=== PATIENT | male | born 1935 | race Caucasian/White ===

== ENCOUNTER → 2018-04-10 | Outpatient (CLI) | payer MEDICARE, BC ==
[2018-04-10 09:21] LABS: Blood Urea Nitrogen 19 mg/dL (9-20)
== END | disposition home or self-care (01) ==
LOC: LABWHC1 07:33
PROVIDERS: ATTEND Internal Medicine
DX: R91.8 Other nonspecific abnormal finding of lung field (principal)
CPT/HCPCS: 36415; 82565; 84520

== ENCOUNTER → 2018-04-15 | Outpatient (CLI) | payer MEDICARE, BC ==
--- NOTE | 2018-04-15 08:18 | CT ---
EXAMINATION TYPE: CT chest w con DATE OF EXAM: 04/15/2018 COMPARISON: CT thorax of 2015 HISTORY: f/u to previous abnormal lung mass CT DLP: 499 mGycm. Automated Exposure Control for Dose Reduction was Utilized. TECHNIQUE: CT scan of the thorax is performed following with IV Contrast, patient injected with 100 mL of Isovue 300. FINDINGS: LUNGS: Within the anterior right upper lobe there is a 3.4 x 3.5 x 4.7 cm peripherally spiculated het erogenous pulmonary mass on a background of moderate centrilobular pulmonary emphysema. There are for satellite nodules seen adjacent to this measuring up to 5 mm on series 4 image 20, 21, 22, and 23. T here are also at least 19 additional right-sided pulmonary nodules measuring up to 1.1 cm and segment al right middle lobe atelectasis with near complete right middle lobe collapse. On the left there are 3 pulmonary nodules measuring up to 7 mm compatible with contralateral metastasis. MEDIASTINUM: There are no greater than 1 cm hilar or mediastinal lymph nodes. Prominent right hilar n ode measures 8 mm in short axis on image 30. Pretracheal lymph node measures up to 7 mm on image 23. No supraclavicular adenopathy is seen. No axillary adenopathy is noted. No pericardial effusion is seen. Severe coronary artery calcifications are seen within the left main and left anterior descendi ng coronary artery. There is a partial intrathoracic stomach folding upon itself. OTHER: Gallstones are noted within the gallbladder. Left pararenal cyst diving into the renal pelvis is seen. Descending duodenal diverticulum is present. Punctate calcifications in the pancreatic paren chyma are indicative of underlying chronic pancreatitis. Probable smaller cortical left renal cyst is seen. Atherosclerosis is noted of the abdominal aorta. In the visualized liver there are 2 too small to accurately characterize hepatic lesions measuring up to 6 mm. Diffuse patchy bone marrow appearan ce is seen that more likely represents diffuse osseous demineralization rather than diffuse osseous m etastasis. 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 At least 19 right-sided pulmonary no dules and 3 left-sided pulmonary nodules are highly suspicious for contralateral metastasis although there is no abnormal mediastinal adenopathy. Percutaneous biopsy or PET/CT could be considered.
== END | disposition home or self-care (01) ==
LOC: RADCTMAIN 06:42
PROVIDERS: ATTEND Internal Medicine
DX: D49.1 Neoplasm of unspecified behavior of respiratory system (principal); Z88.8 Allergy status to other drugs, medicaments and biological substances
CPT/HCPCS: 71260; Q9967

== ENCOUNTER → 2018-04-20 | Outpatient (CLI) | payer MEDICARE, BC ==
--- NOTE | 2018-04-21 08:41 | PE ---
EXAMINATION TYPE: PET CT fusion skull to thigh DATE OF EXAM: 04/20/2018 COMPARISON: Chest CT April 15, 2018 and older CTs. HISTORY: Lung mass TECHNIQUE: Following the intravenous administration of 11.492 mCi of F-18 FDG, whole body images are performed from the skull base to the midthigh. Images are reviewed on the computer in the coronal, axial, and sagittal planes. Reconstructed rotating images are created on independent workstation and reviewed on the computer. A localization noncontrast CT is performed in conjunction with the PET s can. SCAN: Initial Scan FINDINGS: Exam noted suboptimal as there is significant misregistration artifact felt present. SKULL BASE AND NECK: Diminished hypermetabolic uptake right brain is felt artifact related to misreg istration of PET images on CT images.. No areas of suspicious hypermetabolic uptake are clearly seen CHEST, MEDIASTINUM, AND HILAR REGION: There is background moderate to severe underlying emphysematous change redemonstrated. Corresponding to area of x-ray concern and recent CT there is 4.0 x 3.1 cm right upper lung mass axia l image 62, there is probable abnormal hypermetabolic uptake on PET images near axial image 74 with t here is rounded area similar in size of abnormal hypermetabolic uptake, max SUV at this level is 5.7. Corresponding to recent CT there are several bilateral nodules, a few of the larger reference nodules measure 8 x 7 mm lingula axial image 84 and 10 x 9 mm right middle lobe axial image 85 with spiculat ed margins. No definitive hypermetabolic uptake is present. Exam however is noted significantly subop timal due to artifact or misregistration of PET images do not align with the CT images. No definitive suspicious thoracic enlarged or hypermetabolic lymph nodes are seen. ABDOMEN AND PELVIS: Areas of abnormal hypermetabolic foci left anterior abdominal wall axial image 14 0 and left iliopsoas muscle axial image 149 do not have corresponding areas of CT abnormality, etiolo gy uncertain. OSSEOUS STRUCTURES: No suspicious hypermetabolic uptake clearly seen. OTHER CT: Levoconvex scoliosis at level of the lumbar spine is present. There is moderate to severe coronary artery calcification which is noted marker for coronary artery d isease. There is large hiatal hernia or intrathoracic stomach noted. Numerous dependent small gallstones in gallbladder are present. There is 3.2 cm simple appearing cyst centrally in kidney axial image 134. There is moderate to severe calcified plaque of aorta extending into branch vessels. Ectasia is seen. There is markedly enlarged prostate gland bulging on bladder base consistent with underlying BPH. There is degenerative joint space loss in both hips. There is multilevel spurring in the spine. There is facet arthropathy lower lumbar levels. IMPRESSION: Markedly suboptimal study due to misregistration of PET images on the CT images, suspicio us right upper lobe mass worrisome for neoplasm is confirmed. No definitive hypermetabolic uptake in the suspicious but subcentimeter bilateral pulmonary nodules. No convincing evidence of metastatic di sease however focal areas of hypermetabolic uptake in the abdomen on PET are noted of uncertain etiol ogy because of artifact.
== END ==
LOC: RADPETMAIN 12:06
PROVIDERS: ATTEND Internal Medicine
DX: R91.8 Other nonspecific abnormal finding of lung field (principal)
CPT/HCPCS: 78815; A9552

== ENCOUNTER → 2018-04-20 | Outpatient (CLI) | payer MEDICARE, BC | END | disposition home or self-care (01) | LOC: LABWHC1 11:56 | PROVIDERS: ATTEND Urology | DX: R97.20 Elevated prostate specific antigen [PSA] (principal) | CPT/HCPCS: 36415; 84153 ==

== ENCOUNTER → 2018-07-30 | Outpatient (CLI) | payer MEDICARE, BC ==
[2018-07-30 13:06] LABS: Blood Urea Nitrogen 16 mg/dL (9-20)
--- NOTE | 2018-07-30 14:59 | CT ---
EXAMINATION TYPE: CT chest w con DATE OF EXAM: 07/30/2018 COMPARISON: 04/15/2018 HISTORY: RUL Mass CT DLP: 379.9 mGycm Automated exposure control for dose reduction was used. CONTRAST: CT scan of the chest is performed with IV Contrast, patient injected with 100 mL of Isovue 300. FINDINGS: LUNGS: Again noted within the right upper lobe is a spiculated mass which currently measures 3.2 x 2. 6 cm versus 3.5 x 3.4 cm previously. There are several small adjacent satellite nodules identified wh ich remain stable with regards to total number and size. The largest nodule measures 1.1 cm and is lo cated within the right upper lobe. Basilar pulmonary nodules persist at both lung bases 3 total pulmo nary nodules are noted within the left lung the largest is seen within the left upper lobe and measur es 8.9 mm. MEDIASTINUM: There are no greater than 1 cm hilar or mediastinal lymph nodes. No pericardial effusi on is seen. Moderately large fixed hiatal hernia paraesophageal. Thoracic aorta is of normal caliber . The heart is not enlarged. UPPER ABDOMEN: Renal cystic changes identified. Cholelithiasis noted. OTHER: No additional significant abnormality is seen. IMPRESSION: 1. Right upper lobe mass is slightly smaller in size although does persist. Scattered pulmonary nodul es are essentially stable with regards to overall size, number and morphology.
== END | disposition home or self-care (01) ==
LOC: RADCTMAIN 12:20
PROVIDERS: ATTEND Internal Medicine
DX: R91.8 Other nonspecific abnormal finding of lung field (principal); Z88.8 Allergy status to other drugs, medicaments and biological substances
CPT/HCPCS: 82565; 84520; 71260; 36415; Q9967

== ENCOUNTER → 2018-10-29 | Outpatient (CLI) | payer MEDICARE, BC | END | disposition home or self-care (01) | LOC: LABWHC1 08:03 | PROVIDERS: ATTEND Urology | DX: R97.20 Elevated prostate specific antigen [PSA] (principal) | CPT/HCPCS: 36415; 84153 ==

== ENCOUNTER 2018-12-21 13:21 | Emergency (ER) | payer MEDICARE, BC ==
[2018-12-21 13:30] VITALS: TEMP 98
[2018-12-21 14:30] LABS: HCT 36.7 % (39.0-53.0); HGB 12.3 gm/dL (13.0-17.5); MCH 32.6 pg (25.0-35.0); MCHC 33.6 g/dL (31.0-37.0); MCV 97.1 fL (80.0-100.0); Mean Platelet Volume 7.2; Platelet Count 323 k/uL (150-450); RBC 3.78 m/uL (4.30-5.90); RDW 12.9 % (11.5-15.5); WBC 5.8 k/uL (3.8-10.6)
[2018-12-21 14:40] LABS: ALT 16 U/L (21-72); AST 29 U/L (17-59); African American GFR (CKD) >90 (>60 ml/min/1.73 sqM); Alkaline Phosphatase 69 U/L (38-126); Anion Gap 9 mmol/L; Blood Urea Nitrogen 16 mg/dL (9-20); Calcium 9.3 mg/dL (8.4-10.2); Carbon Dioxide 24 mmol/L (22-30); Chloride 97 mmol/L (98-107); Glucose 98 mg/dL (74-99); Potassium 4.7 mmol/L (3.5-5.1); Sodium 130 mmol/L (137-145); Total Bilirubin 0.5 mg/dL (0.2-1.3); Total Protein 7.2 g/dL (6.3-8.2)
[2018-12-21 14:41] LABS: INR 0.9 (<1.2); Partial Thromboplastin Time 24.2 sec (22.0-30.0)
--- NOTE | 2018-12-21 14:41 | CT ---
EXAMINATION TYPE: CT brain cspine wo con DATE OF EXAM: 12/21/2018 COMPARISON: NONE HISTORY: Altered mental status. Head pain and neck pain. CT DLP: 1472.8 mGycm. Automated Exposure Control for Dose Reduction was Utilized. TECHNIQUE: CT scan of the head and cervical spine are performed without contrast. FINDINGS: There are bilateral acute on subacute subdural hematomas measuring up to 1.6 cm in thicknes s on the left and 0.8 cm in thickness on the right. There is minimal left to right midline shift of 2 mm. There is effacement of the peripheral sulci bilaterally, left greater than right secondary to th e mass effect. No intraventricular hemorrhage is seen. Peripheral sulci prominence that does not surr ounding these fluid collections and ventricular prominence is compatible with age-related volume loss . Extensive atherosclerosis of the intracranial vasculature is seen. There is no calvarial fracture i dentified. Visualized paranasal sinuses and mastoid air cells are well aerated. Moderate to severe multilevel degenerative disc disease is seen of the cervical spine. There is parti al visualization of a right upper lobe mass with multiple satellite nodules that should be considered neoplasm until proven otherwise as well as multifocal pleural thickening and scarring with underlyin g extensive emphysematous change. Numerous sclerotic foci are also seen of the cervical spine that ma y represent metastasis. There is grade 1 anterolisthesis of C4 on C5 without facet malalignment or pr evertebral soft tissue swelling therefore likely on the basis of degenerative disc disease. No verteb ral body height loss is seen. Prevertebral soft tissues are within normal limits throughout. IMPRESSION: 1. 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 Images were discussed with the ordering ER provider at 1437 on 12/21/[address] Salgado. 2. Extensive multilevel degenerative disc disease of the cervical spine and grade 1 anterolisthesis o f C4 on C5, likely on a degenerative basis without evidence of acute fracture. 3. Partial visualization of the right upper lobe mass as seen on the prior PET/CT of 04/13/1718 and C T chest dated 08/09/2018 that again should be considered neoplasm until proven otherwise. Multiple scl erotic foci in the cervical spine may represent metastasis.
[2018-12-21] MEDS ORDERED: levETIRAcetam IV 1,000 MG in SALINE 1 100ML.BAG IVPB STA (14:50)
[2018-12-21] MEDS ORDERED: SODIUM CHLORIDE 0.9% 1,000 ML IV SCH (15:00)
--- NOTE | 2018-12-21 15:01 | ED ---
Extremity Problem HPI - General Source: patient Mode of arrival: ambulatory Limitations: no limitations <Florentin Biggs - Last Filed: 12/21/18 15:22> <Vinod Barrera - Last Filed: 12/22/18 08:37> - General Chief complaint: Extremity Problem,Nontraumatic Stated complaint: Numbness, Weakness Time Seen by Provider: 12/21/18 13:34 - History of Present Illness Initial comments: Patient is a 2-year-old male presents emergency Department with bilateral numbness and tingling on the upper extremities. Patient reports the symptoms started 2 days ago and have been intermittent. Patient reports the symptoms st arted in his left hand and alternate to the right hand. Patient also reports intermittent bilateral muscle weakness in the upper extremities. Patient also reports that he has been more forgetful than usual with a past 2 days. Patient denies blurry vision, nausea, vomiting or headaches. Patient is not on blood thinners. Patient does have a history of dementia. Patient reports he drove himself to the emergency department. Patient lives by himself in a house. Patient reports he is able to ambulate without difficulty. (Florentin Biggs) - Related Data Home Medications Medication Instructions Recorded Confirmed Fluticasone/Salmeterol [Advair 1 puff INHALATION BID 02/21/14 05/21/15 250-50 Diskus] Gluc HCl/Zhang/Mv/Min Aa/Hb 162 1 tab PO BID 02/21/14 05/21/15 [Glucosamine-Chondroitin Caplet] Ipratropium/Albuterol Sulfate 1 applicate INHALATION TID 02/21/14 05/21/15 [Duoneb 0.5 mg-3 mg/3 ml Soln] Multivitamin [Men's Multi-Vitamin] 1 tab PO DAILY 02/21/14 05/21/15 Naproxen 1,000 mg PO DIRECTED PRN 02/21/14 05/21/15 Saw Gardners Xtr/Zinc Picolin [Saw 900 mg PO DAILY 02/21/14 05/21/15 Gardners Ext 160 mg Cap] Tamsulosin [Flomax] 0.4 mg PO DAILY 05/21/15 05/21/15 amLODIPine BESYLATE [Amlodipine 5 mg PO DAILY 05/21/15 05/21/15 Besylate] Previous Rx's Medication Instructions Recorded ALPRAZolam [Xanax] 0.5 mg PO Q8HR PRN #10 tablet 02/21/14 Allergies Allergy/AdvReac Type Severity Reaction Status Date / Time doxazosin Allergy Rapid Verified 12/21/18 13:30 Heart Rate Review of Systems ROS Other: All systems not noted in ROS Statement are negative. <Florentin Biggs - Last Filed: 12/21/18 15:22> ROS Other: All systems not noted in ROS Statement are negative. <UgoamyVinod - Last Filed: 12/22/18 08:37> ROS Statement: Those systems with pertinent positive or pertinent negative responses have been documented in the HPI. Past Medical History Past Medical History: COPD, Hypertension, Memory Impairment, Prostate Disorder Additional Past Medical History / Comment(s): intubated due to respiratory distress 2004 History of Any Multi-Drug Resistant Organisms: None Reported Past Surgical History: Tonsillectomy Additional Past Surgical History / Comment(s): vasectomy Past Anesthesia/Blood Transfusion Reactions: No Reported Reaction Past Psychological History: Anxiety Smoking Status: Former smoker Past Alcohol Use History: None Reported Past Drug Use History: None Reported <Florentin Biggs - Last Filed: 12/21/18 15:22> General Exam Limitations: no limitations General appearance: alert, in no apparent distress Head exam: Present: atraumatic, normocephalic, normal inspection Eye exam: Present: normal appearance, PERRL, EOMI Pupils: Present: normal accommodation ENT exam: Present: normal exam, mucous membranes moist Neck exam: Present: normal inspection, full ROM Respiratory exam: Present: normal lung sounds bilaterally Cardiovascular Exam: Present: regular rate, normal rhythm, normal heart sounds Extremities exam: Present: normal inspection, full ROM, other (+2 radial and pulses, bilaterally. +2 dorsalis pedis and posterior tibialis, bilaterally. Equal strength bilaterally on upper and lower extremities.) Back exam: Present: normal inspection Neurological exam: Present: alert, oriented X3 Psychiatric exam: Present: normal affect, normal mood Skin exam: Present: warm, intact, normal color <Florentin Biggs - Last Filed: 12/21/18 15:22> - General Exam Comments Initial Comments: Patient neurovascularly intact. (Florentin Biggs) Course Vital Signs 12/21/18 12/21/18 12/21/18 13:27 14:25 15:47 Temperature 98.0 F Pulse Rate 83 77 68 Respiratory 18 18 16 Rate Blood Pressure 165/85 148/83 139/81 O2 Sat by Pulse 98 96 96 Oximetry 12/21/18 16:32 Temperature 98.0 F Pulse Rate 68 Respiratory 16 Rate Blood Pressure 139/81 O2 Sat by Pulse 96 Oximetry Medical Decision Making - Lab Data Result diagrams: 12/21/18 14:22 12/21/18 14:22 <Florentin Biggs - Last Filed: 12/21/18 15:22> - Lab Data Result diagrams: 12/21/18 14:22 12/21/18 14:22 <Vinod Barrera - Last Filed: 12/22/18 08:37> - Medical Decision Making Patient is an 83-year-old male presents emergency Department with bilateral numbness and tingling on the upper extremities. CT of the previous C-spine is suggestive of acute on chronic bilateral subdural hematomas, left greater than the right with a very minimal left to right midline shift of 2 mm. At this time patient will be placed on a saline drip and transferred to [facility] for further treatment. The admitting physician is . (Florentin Biggs) Patient evaluated, resting comfortably with stable vitals. He is moving all extremities symmetrically. His head CT is reviewed, he has acute on chronic bilateral subdurals, worse on the left with 2 mm shift. I discussed case with the field service technician poultry Dr. Serrato and ER physician Dr. Alvares at [facility]. (Vinod Barrera) - Lab Data Lab Results 12/21/18 12/21/18 12/21/18 Range/Units 14:22 14:22 14:22 WBC 5.8 (3.8-10.6) k/uL RBC 3.78 L (4.30-5.90) m/uL Hgb 12.3 L (13.0-17.5) gm/dL Hct 36.7 L (39.0-53.0) % MCV 97.1 (80.0-100.0) fL MCH 32.6 (25.0-35.0) pg MCHC 33.6 (31.0-37.0) g/dL RDW 12.9 (11.5-15.5) % Plt Count 323 (150-450) k/uL PT 10.0 (9.0-12.0) sec INR 0.9 (<1.2) APTT 24.2 (22.0-30.0) sec Sodium 130 L (137-145) mmol/L Potassium 4.7 (3.5-5.1) mmol/L Chloride 97 L (98-107) mmol/L Carbon Dioxide 24 (22-30) mmol/L Anion Gap 9 mmol/L BUN 16 (9-20) mg/dL Creatinine 0.77 (0.66-1.25) mg/dL Est GFR (CKD-EPI)AfAm >90 (>60 ml/min/1.73 sqM) Est GFR (CKD-EPI)NonAf 84 (>60 ml/min/1.73 sqM) Glucose 98 (74-99) mg/dL Calcium 9.3 (8.4-10.2) mg/dL Magnesium 2.0 (1.6-2.3) mg/dL Total Bilirubin 0.5 (0.2-1.3) mg/dL AST 29 (17-59) U/L ALT 16 L (21-72) U/L Alkaline Phosphatase 69 (38-126) U/L Total Protein 7.2 (6.3-8.2) g/dL Albumin 4.0 (3.5-5.0) g/dL Disposition Is patient prescribed a controlled substance at d/c from ED?: No Time of Disposition: 15:13 - Out of Hospital Transfer - Req. Specs Out of Hospital Transfer - Requested Specifics: Other Emergency Center ([facility]) <Florentin Biggs - Last Filed: 12/21/18 15:22> Is patient prescribed a controlled substance at d/c from ED?: No - Out of Hospital Transfer - Req. Specs Out of Hospital Transfer - Requested Specifics: Other Emergency Center <Vinod Barrera - Last Filed: 12/22/18 08:37> Clinical Impression: Subdural hematoma Disposition: OTHER INSTITUTION NOT DEFINED Condition: Stable Additional Instructions: Patient will be transferred to [facility]. Referrals: None,Stated [Primary Care Provider] - 1-2 days
[2018-12-21 15:48] VITALS: BP 139/81; PULSE 68; RESP 16
== END 2018-12-21 16:20 | disposition other institution (70) ==
LOC: EC 13:21
DX: I62.00 Nontraumatic subdural hemorrhage, unspecified (principal); J44.9 Chronic obstructive pulmonary disease, unspecified; I10 Essential (primary) hypertension; Z79.51 Long term (current) use of inhaled steroids; Z79.899 Other long term (current) drug therapy; Z88.8 Allergy status to other drugs, medicaments and biological substances; Z87.891 Personal history of nicotine dependence
CPT/HCPCS: 36415; 80053; 83735; 85027; 85610; 85730; 72125; 70450; 99284; 96374; 96361; J1953

== ENCOUNTER → 2019-01-29 | Outpatient (CLI) | payer MEDICARE, BC ==
--- NOTE | 2019-01-29 16:17 | CT ---
EXAMINATION TYPE: CT chest w con DATE OF EXAM: 01/29/2019 COMPARISON: 07/30/2018 HISTORY: Non specific abnormal finding of the lung CT DLP: 434 mGycm, Automated exposure control for dose reduction was used. CONTRAST: Performed injected with 100 ml mL of Isovue 300. TECHNIQUE: Axial images were obtained at 5 mm thick sections. Reconstructed images are reviewed on [employer] computer in the coronal plane. FINDINGS: Portion of the thyroid visualized is normal. There is irregular mass within the superior anterior right upper lobe measuring 2.5 x 3.5 cm. This pr eviously measured 2.6 x 3.2 cm. There is some increasing extension anteriorly towards the periphery. Additionally, a spiculated mass right upper lobe, series 6 image 21 has increased in size from 0.82 1 .1 cm on the current exam. Findings are suspicious for metastatic disease. There are multiple additional enlarging nodules inferior within the right middle lobe. A mass within the lingula has enlarged from 0.9 to 1.4 cm. Series 6 image 35. Additional peripheral nodule in the r ight middle lobe previously measured 1.2 cm currently measures 1.4 cm. Image 32 series 6. No enlarged mediastinal or hilar adenopathy is evident. The ascending aorta diameter at the level o f the main pulmonary artery is 3.3 cm. The main pulmonary artery diameter at the bifurcation is 2.[address] sections are obtained through the upper abdomen. Abdomen is essentially unremarkable. Larg e hiatal hernia is present. There is a patchy appearance within the vertebral bodies of the thoracic spine. Osseous metastasis should be considered IMPRESSIONS: 1. Multiple increasing size irregular nodules suspicious for metastasis present within the bilateral lungs.
== END | disposition home or self-care (01) ==
LOC: RADCTMAIN 07:04
PROVIDERS: ATTEND Internal Medicine
DX: R91.8 Other nonspecific abnormal finding of lung field (principal)
CPT/HCPCS: 82565; 84520; 71260; 36415; Q9967

== ENCOUNTER → 2019-05-16 | Outpatient (CLI) | payer MEDICARE, BC | END | disposition home or self-care (01) | LOC: LABWHC1 07:51 | PROVIDERS: ATTEND Urology | DX: R97.20 Elevated prostate specific antigen [PSA] (principal) | CPT/HCPCS: 36415; 84153 ==

== ENCOUNTER 2019-09-05 04:22 | Inpatient (IN) | payer MEDICARE, BC ==
[2019-09-05] MEDS ORDERED: IPRATROPIUM-ALBUTEROL 3 ML NEB INHALATION STA (06:04)
[2019-09-05] MEDS ORDERED: methylPREDNISolone SOD SUCCI 125 MG/2 ML VIAL IV STA (06:04)
[2019-09-05 06:35] LABS: Basophils % (A) 0 %; Eosinophils # (A) 0.2 k/uL (0-0.7); Eosinophils % (A) 2 %; HGB 13.5 gm/dL (13.0-17.5); Lymphocytes # (A) 0.2 k/uL (1.0-4.8); Lymphocytes % (A) 2 %; MCH 32.8 pg (25.0-35.0); MCV 99.2 fL (80.0-100.0); Mean Platelet Volume 7.8; Monocytes # (A) 0.5 k/uL (0-1.0); Monocytes % (A) 4 %; Neutrophils # (A) 12.2 k/uL (1.3-7.7); Neutrophils % (A) 93 %; Platelet Count 278 k/uL (150-450); RBC 4.13 m/uL (4.30-5.90); RDW 12.5 % (11.5-15.5); WBC 13.2 k/uL (3.8-10.6)
[2019-09-05 06:44] LABS: INR 0.9 (<1.2); Partial Thromboplastin Time 22.2 sec (22.0-30.0); Prothrombin Time 9.9 sec (9.0-12.0)
[2019-09-05 06:45] LABS: ALT 14 U/L (4-49); AST 28 U/L (17-59); African American GFR (CKD) >90 (>60 ml/min/1.73 sqM); Albumin 3.7 g/dL (3.5-5.0); Alkaline Phosphatase 66 U/L (38-126); Anion Gap 7 mmol/L; Blood Urea Nitrogen 20 mg/dL (9-20); Carbon Dioxide 26 mmol/L (22-30); Chloride 101 mmol/L (98-107); Glucose 146 mg/dL (74-99); Non-African American GFR(CKD) 85 (>60 ml/min/1.73 sqM); Potassium 4.4 mmol/L (3.5-5.1); Sodium 134 mmol/L (137-145); Total Bilirubin 0.4 mg/dL (0.2-1.3); Total Protein 7.1 g/dL (6.3-8.2)
--- NOTE | 2019-09-05 07:06 | XR ---
EXAM: XR Chest, 2 Views CLINICAL HISTORY: difficulty breathing TECHNIQUE: Frontal and lateral views of the chest. COMPARISON: November 28, 2018. FINDINGS: Lungs: Extensive bilateral pulmonary infiltrates, worse on the right. Pleural space: Unremarkable. No pneumothorax. No pleural fluid. Heart: Unremarkable. No cardiomegaly. Mediastinum: Retrocardiac hiatus hernia. Bones/joints: Unremarkable. No acute abnormalities. IMPRESSION: Bilateral pneumonia.
[2019-09-05] MEDS ORDERED: AZITHROMYCIN 500 MG in SODIUM CHLORIDE 0.9% 250 ML IVPB STA (07:32)
[2019-09-05] MEDS ORDERED: IPRATROPIUM-ALBUTEROL 3 ML NEB INHALATION PRN (07:32)
[2019-09-05] MEDS ORDERED: PNEUMONIA PROTOCOL UTILIZED 1 EACH MISC PO PRN (07:32)
--- NOTE | 2019-09-05 07:38 | ED ---
SOB HPI - General Chief Complaint: Shortness of Breath Stated Complaint: SOB Time Seen by Provider: 09/05/19 07:32 Source: patient, EMS Mode of arrival: EMS Limitations: no limitations - History of Present Illness Initial Comments: Mitch is an 84-year-old male with history of COPD previously oxygen-dependent but states that his insurance no longer covers it so he does not have oxygen at home. Patient reports he began feeling short of breath over the past day and a half however it acutely worsened throughout the day today and during the night he couldn't sleep. Patient states that he's been hospitalized with respiratory failure requiring intubation 2 times in the past and didn't want to wait until he was at 6. Patient states he got up and got dressed himself to the hospital but was too short of breath didn't think it was safe to drive so he called 911. Patient denies any fevers but reports chills, minimally productive cough, no nausea vomiting or change in bowel or bladder habits. Patient denies any chest pain or palpitations. Patient reports he is feeling somewhat better after getting a breathing treatment supplemental oxygen from EMS. - Related Data Home Medications Medication Instructions Recorded Confirmed Fluticasone/Salmeterol [Advair 1 puff INHALATION BID 02/21/14 05/21/15 250-50 Diskus] Gluc HCl/Zhang/Mv/Min Aa/Hb 162 1 tab PO BID 02/21/14 05/21/15 [Glucosamine-Chondroitin Caplet] Ipratropium/Albuterol Sulfate 1 applicate INHALATION TID 02/21/14 05/21/15 [Duoneb 0.5 mg-3 mg/3 ml Soln] Multivitamin [Men's Multi-Vitamin] 1 tab PO DAILY 02/21/14 05/21/15 Naproxen 1,000 mg PO DIRECTED PRN 02/21/14 05/21/15 Saw Cadwell Fruit/Zinc Picoli 900 mg PO DAILY 02/21/14 05/21/15 [Saw Cadwell 450 mg Capsule] Tamsulosin [Flomax] 0.4 mg PO DAILY 05/21/15 05/21/15 amLODIPine BESYLATE [Amlodipine 5 mg PO DAILY 05/21/15 05/21/15 Besylate] Previous Rx's Medication Instructions Recorded ALPRAZolam [Xanax] 0.5 mg PO Q8HR PRN #10 tablet 02/21/14 Allergies Allergy/AdvReac Type Severity Reaction Status Date / Time doxazosin Allergy Rapid Verified 12/21/18 13:30 Heart Rate Review of Systems ROS Statement: Those systems with pertinent positive or pertinent negative responses have been documented in the HPI. ROS Other: All systems not noted in ROS Statement are negative. Past Medical History Past Medical History: COPD, Hypertension, Memory Impairment, Prostate Disorder Additional Past Medical History / Comment(s): intubated due to respiratory distress 2004 History of Any Multi-Drug Resistant Organisms: None Reported Past Surgical History: Tonsillectomy Additional Past Surgical History / Comment(s): vasectomy Past Anesthesia/Blood Transfusion Reactions: No Reported Reaction Past Psychological History: Anxiety Smoking Status: Former smoker Past Alcohol Use History: None Reported Past Drug Use History: None Reported General Exam - General Exam Comments Initial Comments: Physical Exam GENERAL: Chronically ill-appearing elderly gentleman in no acute distress upon arrival HENT: Normocephalic, Atraumatic. EYES: PERRL, EOMI PULMONARY: Crackles at bases with expiratory wheezing noted CARDIOVASCULAR: RRR ABDOMEN: Soft and nontender with normal bowel sounds. SKIN: Skin is clear with no lesions or rashes and otherwise unremarkable. : Deferred NEUROLOGIC: Patient is alert and oriented x3. Moving all extremities spontaneously MUSCULOSKELETAL: Normal extremities with adequate strength and full range of motion. No lower extremity swelling or edema. No calf tenderness. PSYCHIATRIC: Normal psychiatric evaluation. Limitations: no limitations Course Vital Signs 09/05/19 09/05/19 09/05/19 04:27 06:39 06:57 Temperature 98 F Pulse Rate 100 98 97 Respiratory 20 18 Rate Blood Pressure 170/87 119/60 O2 Sat by Pulse 92 L 96 Oximetry 09/05/19 07:05 Temperature Pulse Rate 98 Respiratory Rate Blood Pressure O2 Sat by Pulse Oximetry Medical Decision Making - Medical Decision Making The patient was seen and evaluated history was obtained from patient and EMS 84-year-old gentleman with history of COPD with productive cough chills and hypoxia Breathing treatments steroids were ordered Chest x-ray confirms bilateral pneumonia patient has no recent admission so will be treated with community-acquired pneumonia Considering the patient's advanced age and multiple comorbidities we will admit for pneumonia. Patient care was discussed with Dr. luciano who agrees with this plan. Dr. Huff the patient's cook supervisor will be consulted - Lab Data Result diagrams: 09/05/19 06:24 09/05/19 06:24 Lab Results 09/05/19 09/05/19 09/05/19 Range/Units 06:24 06:24 06:24 WBC 13.2 H (3.8-10.6) k/uL RBC 4.13 L (4.30-5.90) m/uL Hgb 13.5 (13.0-17.5) gm/dL Hct 41.0 (39.0-53.0) % MCV 99.2 (80.0-100.0) fL MCH 32.8 (25.0-35.0) pg MCHC 33.0 (31.0-37.0) g/dL RDW 12.5 (11.5-15.5) % Plt Count 278 (150-450) k/uL Neutrophils % 93 % Lymphocytes % 2 % Monocytes % 4 % Eosinophils % 2 % Basophils % 0 % Neutrophils # 12.2 H (1.3-7.7) k/uL Lymphocytes # 0.2 L (1.0-4.8) k/uL Monocytes # 0.5 (0-1.0) k/uL Eosinophils # 0.2 (0-0.7) k/uL Basophils # 0.0 (0-0.2) k/uL PT 9.9 (9.0-12.0) sec INR 0.9 (<1.2) APTT 22.2 (22.0-30.0) sec Sodium 134 L (137-145) mmol/L Potassium 4.4 (3.5-5.1) mmol/L Chloride 101 (98-107) mmol/L Carbon Dioxide 26 (22-30) mmol/L Anion Gap 7 mmol/L BUN 20 (9-20) mg/dL Creatinine 0.73 (0.66-1.25) mg/dL Est GFR (CKD-EPI)AfAm >90 (>60 ml/min/1.73 sqM) Est GFR (CKD-EPI)NonAf 85 (>60 ml/min/1.73 sqM) Glucose 146 H (74-99) mg/dL Calcium 9.0 (8.4-10.2) mg/dL Total Bilirubin 0.4 (0.2-1.3) mg/dL AST 28 (17-59) U/L ALT 14 (4-49) U/L Alkaline Phosphatase 66 (38-126) U/L Troponin I (0.000-0.034) ng/mL NT-Pro-B Natriuret Pep pg/mL Total Protein 7.1 (6.3-8.2) g/dL Albumin 3.7 (3.5-5.0) g/dL Influenza Type A RNA (Not Detectd) Influenza Type B (PCR) (Not Detectd) 09/05/19 09/05/19 09/05/19 Range/Units 06:24 06:24 06:24 WBC (3.8-10.6) k/uL RBC (4.30-5.90) m/uL Hgb (13.0-17.5) gm/dL Hct (39.0-53.0) % MCV (80.0-100.0) fL MCH (25.0-35.0) pg MCHC (31.0-37.0) g/dL RDW (11.5-15.5) % Plt Count (150-450) k/uL Neutrophils % % Lymphocytes % % Monocytes % % Eosinophils % % Basophils % % Neutrophils # (1.3-7.7) k/uL Lymphocytes # (1.0-4.8) k/uL Monocytes # (0-1.0) k/uL Eosinophils # (0-0.7) k/uL Basophils # (0-0.2) k/uL PT (9.0-12.0) sec INR (<1.2) APTT (22.0-30.0) sec Sodium (137-145) mmol/L Potassium (3.5-5.1) mmol/L Chloride (98-107) mmol/L Carbon Dioxide (22-30) mmol/L Anion Gap mmol/L BUN (9-20) mg/dL Creatinine (0.66-1.25) mg/dL Est GFR (CKD-EPI)AfAm (>60 ml/min/1.73 sqM) Est GFR (CKD-EPI)NonAf (>60 ml/min/1.73 sqM) Glucose (74-99) mg/dL Calcium (8.4-10.2) mg/dL Total Bilirubin (0.2-1.3) mg/dL AST (17-59) U/L ALT (4-49) U/L Alkaline Phosphatase (38-126) U/L Troponin I 0.026 (0.000-0.034) ng/mL NT-Pro-B Natriuret Pep 216 pg/mL Total Protein (6.3-8.2) g/dL Albumin (3.5-5.0) g/dL Influenza Type A RNA Not Detected (Not Detectd) Influenza Type B (PCR) Not Detected (Not Detectd) Disposition Clinical Impression: Pneumonia Disposition: ADMITTED IP TO THIS HOSP Condition: Serious Is patient prescribed a controlled substance at d/c from ED?: No Referrals: Jose Guadalupe Jansen DO [Primary Care Provider] - 1-2 days
--- NOTE | 2019-09-05 12:25 | P.CNPUL ---
History of Present Illness Consult date: 09/05/19 Reason for consult: pneumonia History of present illness: 40-year-old male patient with advanced COPD was coming in for worsening shortness of breath. He is our office patient and is followed up by Dr. Huff. The patient was first found out to have a right upper lobe mass based on the CAT scan of the chest that was done on 04/15/2018. At that time, the patient at 4.7 cm mass in the right upper lobe consistent with neoplasm. He also had at least 14 right-sided pulmonary nodules and 3 left-sided pulmonary nodules that were suspicious for metastases. A PET scan was done on 04/20/2018 and the patient was found to have no definite metabolic activity in the right upper lobe mass or tenderness subcentimeter by the pulmonary nodule. No convincing evidence of metastases and there was focal areas of metabolic activity in the abdomen of uncertain etiology. The patient was given a follow-up CAT scan of the chest on 07/30/2018 that showed the right upper lobe mass was slightly smaller in size although it persisted. Scattered bilateral pulmonary disease were still present. The last CAT scan of the chest was done on 01/29/2019 and s howed multiple increasing size irregular nodules suspicious for metastases present in both lungs. There was irregular mass within the superior anterior right upper lobe measuring 2.5 x 3.5 cm that increased in size and there was also increasing extension anteriorly and peripherally. Suspicious mass also in the right upper lobe present measuring 0.8 and 1.1 cm. The patient was offered bronchoscopy and biopsy however this did not get done as the patient did not have a ride to take him back and forth. As such, no official confirmation of the diagnosis was established. This patient is an ex-smoker. He quit smoking in 2000. He is not oxygen dependent. He started getting short of breath within the past 24-48 hours and he end up coming into the hospital. He stated that he was utilizing his nebulizer. He was able to sleep because of his increased shortness of breath. No significant cough or sputum production. No pain. No reported fever. No fever or chills. White cell count was at 13.2. His plasma lactic acid level was at 2.2. Renal function and electrolytes are all within normal limits. His PSAs at 13.5. Influenza A and B was negative. The patient was placed on examination Rocephin and Zithromax.. Note that the patient's PSA has been steadily going up probably 6.4 up to 9.6 and then 13.5. He is being followed by Dr. Rivera Review of Systems Constitutional: Reports fatigue, Reports weight loss Eyes: denies as per HPI, denies blurred vision, denies bulging eye, denies decreased vision, denies diplopia, denies discharge, denies dry eye, denies irritation, denies itching, denies pain, denies photophobia, denies loss of peripheral vision, denies loss of vision, denies tunnel vision/blind spots Ears: deny: decreased hearing, ear discharge, earache, tinnitus Ears, nose, mouth and throat: Reports as per HPI Breasts: absent: as per HPI, gynecomastia Cardiovascular: Reports decreased exercise tolerance, Reports dyspnea on exertion Respiratory: Reports cough, Reports dyspnea Gastrointestinal: Reports as per HPI Genitourinary: Reports urinary frequency Musculoskeletal: absent: ankle pain, ankle stiffness, ankle swelling Integumentary: Reports as per HPI Neurological: Reports as per HPI Psychiatric: Reports as per HPI Endocrine: Reports as per HPI Hematologic/Lymphatic: Reports as per HPI Allergic/Immunologic: Reports as per HPI Past Medical History Past Medical History: COPD, Hypertension, Memory Impairment, Prostate Disorder Additional Past Medical History / Comment(s): intubated due to respiratory distress 2003. was previously on oxygen. patient states his insurance company would no longer pay for it (15 years ago). History of Any Multi-Drug Resistant Organisms: None Reported Past Surgical History: Tonsillectomy Additional Past Surgical History / Comment(s): vasectomy Past Anesthesia/Blood Transfusion Reactions: No Reported Reaction Past Psychological History: Anxiety Smoking Status: Former smoker Past Alcohol Use History: None Reported Past Drug Use History: None Reported Medications and Allergies Home Medications Medication Instructions Recorded Confirmed Type Ipratropium/Albuterol Sulfate 3 ml INHALATION RT-QID PRN 02/21/14 09/05/19 History [Duoneb 0.5 mg-3 mg/3 ml Soln] amLODIPine BESYLATE [Amlodipine 5 mg PO DAILY 05/21/15 09/05/19 History Besylate] Fluticasone Propion/Salmeterol 1 puff INHALATION RT-BID 09/05/19 09/05/19 History [Wixela 250-50 Inhub] Losartan [Cozaar] 50 mg PO DAILY 09/05/19 09/05/19 History Magnesium(Unknown Dose) 1 tab PO DAILY 09/05/19 09/05/19 History Allergies Allergy/AdvReac Type Severity Reaction Status Date / Time doxazosin AdvReac Rapid Verified 09/05/19 08:51 Heart Rate tamsulosin [From Flomax] AdvReac Rapid Verified 09/05/19 08:51 Heart Rate Physical Exam Vitals: Vital Signs Temp Pulse Pulse Resp BP BP Pulse Ox 09/05/19 12:04 96 09/05/19 11:45 96 09/05/19 09:09 97.9 F 93 14 139/80 92 L 09/05/19 07:35 98.9 F 97 18 113/71 95 09/05/19 07:05 98 09/05/19 06:57 97 09/05/19 06:39 98 18 119/60 96 09/05/19 04:27 98 F 100 20 170/87 92 L Intake and Output 09/04/19 09/05/19 09/05/19 22:59 06:59 14:59 Other: Weight 72.575 kg 72.575 kg The patient appeared well nourished and normally developed. Vital signs as documented. Head exam is unremarkable. No scleral icterus or corneal arcus noted. Neck is without jugular venous distension, thyromegaly, or carotid bruits. Carotid upstrokes are brisk bilaterally. Lungs are diminished breath sounds along with some scattered rhonchi and some scattered expiratory wheezes. Cardiac exam reveals the PMI to be normally sized and situated. Rhythm is regular. First and second heart sounds normal. No murmurs, rubs or gallops. Abdominal exam reveals normal bowel sounds, no masses, no organomegaly and no aortic enlargement. Extremities are nonedematous and both femoral and pedal pulses are normal.Examination of the skin revealed no evidence of significant rashes, suspicious appearing nevi or other concerning lesions. Neurologically the patient is awake and alert and is no focal neurological deficits. Results - Laboratory Findings CBC and BMP: 09/05/19 06:24 09/05/19 06:24 PT/INR, D-dimer PT 9.9 sec (9.0-12.0) 09/05/19 06:24 INR 0.9 (<1.2) 09/05/19 06:24 Abnormal lab findings: Abnormal Labs 09/05/19 09/05/19 09/05/19 06:24 06:24 06:24 WBC 13.2 H RBC 4.13 L Neutrophils # 12.2 H Lymphocytes # 0.2 L Sodium 134 L Glucose 146 H Plasma Lactic Acid Morris 2.2 H* 09/05/19 10:43 WBC RBC Neutrophils # Lymphocytes # Sodium Glucose Plasma Lactic Acid Morris 2.2 H* - Diagnostic Findings Chest x-ray: image reviewed Assessment and Plan Plan: 1 acute on chronic shortness of breath with development of diffuse bilateral pulmonary infiltrates consistent with pneumonia although the possibility of underlying malignancy cannot be completely excluded. Clinically however, the patient does not have the typical signs and symptoms of pneumonia. No leukocytosis. No fever. No significant respiratory distress. It's possible that this is more so of a chronic process and malignancy needs to be considered. Other possibilities are atypical mycobacterium infections, sarcoidosis felt to be less likely. 2 moderate to severe COPD 3 bilateral pulmonary nodules/masses of varying sizes and numbers which has been evaluated in our pulmonary office. The initial right upper lobe mass that was identified in 2018 had decreased in size however since then the patient developed multiple bilateral pulmonary nodules of various sizes which have increased in size based on the most recent CAT scan and this obviously raises the concern for malignancy. The patient's PSAs on the rise, consider underlying prostate cancer. Consider underlying primary bronchogenic carcinoma. 3 diverticular disease 4 hypertension 5 weight loss 6 seasonal ALLERGIES 7 mild lactic acidosis Plan Check pro calcitonin level Check CAT scan of the chest with contrast to follow-up and compared Continue Rocephin and Zithromax Repeat PSA Agree on the current antibiotic coverage We'll continue to follow
[2019-09-05] MEDS ORDERED: RX INFO: IV CONTRAST WAS GIVEN 1 EACH MISC MISCELLANE PRN (12:26)
--- NOTE | 2019-09-05 14:33 | CT ---
EXAMINATION TYPE: CT chest w con DATE OF EXAM: 09/05/2019 COMPARISON: Prior chest CT 01/29/2019, chest x-ray 09/05/2019 HISTORY: Mass CT DLP: 383.6 mGycm Automated exposure control for dose reduction was used. CONTRAST: CT scan of the chest is performed with IV Contrast, patient injected with 100 mL of Isovue 300. FINDINGS: LUNGS: There are air bronchograms in the right upper and middle lobes with associated increasing soft tissue density, prominent interstitium, probable postobstructive atelectatic changes, projections pr eviously described mass may be obscured . Multiple soft tissue masses are present bilaterally, axial image 39 shows a spiculated mass measuri ng 18 mm which is increased in size from prior when it measured 15 mm. 7 masses are present in the ri ght lower lobe on axial images 48 through 55. Left lower lobe mass is also present measuring 18 mm wh ich is increased from prior when it measured 12 mm, multiple smaller nodules are present in the left lower lobe. Multiple nodules subcentimeter in size are present in left upper lobe with associated int erstitial changes. Within the lingula there is a mass measuring 2.3 cm which is increased from 15 mm on prior exam. Nodular densities also present in the right upper lobe on axial image 26 MEDIASTINUM: Aorticopulmonary window node is enlarged and has developed in the interval. No pericar dial effusion is seen. Paraesophageal hernia with partial intrathoracic stomach is present. AORTA: Atheromatous changes are present. OTHER: Cholelithiasis is suspected. There are cystic foci associated with the left kidney. 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 Additional findings above.
[2019-09-05] MEDS: LOSARTAN 50 MG TAB PO SCH (16:02)
[2019-09-05] MEDS: guaiFENesin 600 MG TABLET.ER PO SCH ×2 (16:02→22:32)
[2019-09-05] MEDS: methylPREDNISolone SOD SUCCI 40 MG/ML 1 ML VIAL IV SCH ×2 (16:02→17:02)
[2019-09-05] MEDS: amLODIPine 5 MG TAB PO SCH (16:02)
[2019-09-05] MEDS: ENOXAPARIN 40 MG/0.4 ML SYRINGE SQ SCH (16:02)
[2019-09-05] MEDS: IPRATROPIUM-ALBUTEROL 3 ML NEB INHALATION SCH ×3 (16:22→20:05)
[2019-09-05] MEDS: BUDESONIDE 1 MG/2 ML NEBU INHALATION SCH ×2 (16:22→20:05)
[2019-09-05] MEDS: FORMOTEROL FUMARATE 20 MCG/2 ML NEBU INHALATION SCH ×2 (16:23→20:05)
--- NOTE | 2019-09-05 18:07 | P.HPIM ---
History of Present Illness H&P Date: 09/05/19 Chief Complaint: Shortness of breath History of presenting complaint: This is a very pleasant 84-year-old patient of Dr. Jansen. Follows with tea leaf reader Dr. Machado. Patient has long-standing history of COPD. Had been on oxygen. Because of insurance reasons, been using the same. Chronic stable medical conditions include hypertension, some cognitive impairment, GERD, BPH, osteoarthritis. Yesterday evening patient became short of breath started coughing bringing up phlegm that he described mainly as clear. Having some chills no obvious fever. Admitted for the same. Checks x-ray didn't reveal pneumonia. Started on IV ceftriaxone and Zithromax. Feeling better after the initial dose of antibiotic. Review of systems: GEN.: Fever or chills tired EYES: None HEENT: None NECK: None RESPIRATORY: As above CARDIOVASCULAR: None GASTROINTESTINAL: None GENITOURINARY: None MUSCULOSKELETAL: Joint pains including the knees LYMPHATICS: None HEMATOLOGICAL: None PSYCHIATRY: None NEUROLOGICAL: A bit forgetful Past medical history to include: Hypertension, cognitive impairment mild, GERD, BPH, osteoarthritis Social history: Does smoke in the past. Lives alone. Family history: Reviewed, noncontributory to presentation Physical examination: VITAL SIGNS: 98, 100, respiratory, blood pressure 119/60, 92% on 4 L-up on presentation] GENERAL: BMI 23.3, sitting up in a chair, short of breath. EYES: Pupils equal. Conjunctiva normal. HEENT: External appearance of nose and ears normal, oral cavity grossly normal. NECK: JVD not raised; masses not palpable. HEART: First and second heart sounds are normal; no edema. LUNGS: Respiratory rate increased, decreased breath sounds prolonged expiration some wheezing. ABDOMEN: Soft, nontender, liver spleen not palpable, no masses palpable. PSYCH: Alert and oriented x3; mood and affect normal. MUSCULAR skeletal: Evidence of OA NEUROLOGICAL: Cranial nerves grossly intact; no facial asymmetry, power and sensation grossly intact. LYMPHATICS: No lymph nodes palpable in the axilla and neck INVESTIGATIONS, reviewed in the clinical context: White count 13.2 hemoglobin 13.5 potassium 4.4 creatinine 0.73 Influenza type A and type B both negative EKG tracing personally reviewed by me-normal sinus rhythm Chest x-ray film personally reviewed by me-multilobar infiltrates Assessment: -Multilobar infiltrates, suspect gram-negative organism, pneumonia -Essential hypertension -Mild cognitive impairment -GERD -BPH -Primary osteoarthritis -Acute COPD exacerbation in an ex-smoker Plan: Patient started on bronchodilators, IV steroids and inhaled and steroids. Antibiotics in form of IV ceftriaxone and Zithromax. Home medications resumed. Care was discussed with the patient questions were answered. Lovenox for DVT prophylaxis. Pulmonary was consulted. Sputum will be sent off for Gram stain and culture. Past Medical History Past Medical History: COPD, Hypertension, Memory Impairment, Prostate Disorder Additional Past Medical History / Comment(s): intubated due to respiratory distress 2003 History of Any Multi-Drug Resistant Organisms: None Reported Past Surgical History: Tonsillectomy Additional Past Surgical History / Comment(s): vasectomy Past Anesthesia/Blood Transfusion Reactions: No Reported Reaction Past Psychological History: Anxiety Smoking Status: Former smoker Past Alcohol Use History: None Reported Past Drug Use History: None Reported Medications and Allergies Home Medications Medication Instructions Recorded Confirmed Type Ipratropium/Albuterol Sulfate 3 ml INHALATION RT-QID PRN 02/21/14 09/05/19 History [Duoneb 0.5 mg-3 mg/3 ml Soln] amLODIPine BESYLATE [Amlodipine 5 mg PO DAILY 05/21/15 09/05/19 History Besylate] Fluticasone Propion/Salmeterol 1 puff INHALATION RT-BID 09/05/19 09/05/19 History [Wixela 250-50 Inhub] Losartan [Cozaar] 50 mg PO DAILY 09/05/19 09/05/19 History Magnesium(Unknown Dose) 1 tab PO DAILY 09/05/19 09/05/19 History Allergies Allergy/AdvReac Type Severity Reaction Status Date / Time doxazosin AdvReac Rapid Verified 09/05/19 08:51 Heart Rate tamsulosin [From Flomax] AdvReac Rapid Verified 09/05/19 08:51 Heart Rate Physical Exam Vitals: Vital Signs Temp Pulse Pulse Resp BP BP Pulse Ox 09/05/19 09:09 97.9 F 93 14 139/80 92 L 09/05/19 07:35 98.9 F 97 18 113/71 95 09/05/19 07:05 98 09/05/19 06:57 97 09/05/19 06:39 98 18 119/60 96 09/05/19 04:27 98 F 100 20 170/87 92 L Intake and Output 09/04/19 09/05/19 09/05/19 22:59 06:59 14:59 Other: Weight 72.575 kg Results CBC & Chem 7: 09/05/19 06:24 09/05/19 06:24 Labs: Abnormal Lab Results - Last 24 Hours (Table) 09/05/19 09/05/19 09/05/19 Range/Units 06:24 06:24 06:24 WBC 13.2 H (3.8-10.6) k/uL RBC 4.13 L (4.30-5.90) m/uL Neutrophils # 12.2 H (1.3-7.7) k/uL Lymphocytes # 0.2 L (1.0-4.8) k/uL Sodium 134 L (137-145) mmol/L Glucose 146 H (74-99) mg/dL Plasma Lactic Acid Morris 2.2 H* (0.7-2.0) mmol/L
[2019-09-06] MEDS: methylPREDNISolone SOD SUCCI 40 MG/ML 1 ML VIAL IV SCH ×4 (00:05→23:30)
[2019-09-06] MEDS: IPRATROPIUM-ALBUTEROL 3 ML NEB INHALATION SCH ×6 (00:57→21:05)
[2019-09-06] MEDS: LOSARTAN 50 MG TAB PO SCH (08:27)
[2019-09-06] MEDS: guaiFENesin 600 MG TABLET.ER PO SCH ×2 (08:27→20:22)
[2019-09-06] MEDS: amLODIPine 5 MG TAB PO SCH (08:27)
[2019-09-06] MEDS: AZITHROMYCIN 500 MG in SODIUM CHLORIDE 0.9% 250 ML IVPB SCH (08:27)
[2019-09-06] MEDS: ENOXAPARIN 40 MG/0.4 ML SYRINGE SQ SCH (08:27)
[2019-09-06] MEDS: FORMOTEROL FUMARATE 20 MCG/2 ML NEBU INHALATION SCH ×2 (08:33→21:05)
[2019-09-06] MEDS: BUDESONIDE 1 MG/2 ML NEBU INHALATION SCH ×2 (08:34→21:05)
[2019-09-06 13:17] VITALS: BMI 23.6
--- NOTE | 2019-09-06 13:34 | P.PN ---
Subjective Progress Note Date: 09/06/19 Principal diagnosis: Acute on chronic shortness of breath 84-year-old male patient with advanced COPD was coming in for worsening shortness of breath. He is our office patient and is followed up by Dr. Huff. The patient was first found out to have a right upper lobe mass based on the CAT scan of the chest that was done on 04/15/2018. At that time, the patient at 4.7 cm mass in the right upper lobe consistent with neoplasm. He also had at least 14 right-sided pulmonary nodules and 3 left-sided pulmonary nodules that were suspicious for metastases. A PET scan was done on 04/20/2018 and the patient was found to have no definite metabolic activity in the right upper lobe mass or tenderness subcentimeter by the pulmonary nodule. No convincing evidence of metastases and there was focal areas of metabolic activity in the abdomen of uncertain etiology. The patient was given a follow-up CAT scan of the chest on 07/30/2018 that showed the right upper lobe mass was slightly smaller in size although it persisted. Scattered bilateral pulmonary disease were still present. The last CAT scan of the chest was done on 01/29/2019 and showed multiple increasing size irregular nodules suspicious for metastases present in both lungs. There was irregular mass within the superior anterior right upper lobe measuring 2.5 x 3.5 cm that increased in size and there was also increasing extension anteriorly and peripherally. Suspicious mass also in the right upper lobe present measuring 0.8 and 1.1 cm. The patient was offered bronchoscopy and biopsy however this did not get done as the patient did not have a ride to take him back and forth. As such, no official confirmation of the diagnosis was established. This patient is an ex-smoker. He quit smoking in 2000. He is not oxygen dependent. He started getting short of breath within the past 24-48 hours and he end up coming into the hospital. He stated that he was utilizing his nebulizer. He was able to sleep because of his increased shortness of breath. No significant cough or sputum production. No pain. No reported fever. No fever or chills. White cell count was at 13.2. His plasma lactic acid level was at 2.2. Renal function and electrolytes are all within normal limits. His PSAs at 13.5. Influenza A and B was negative. The patient was placed on examination Rocephin and Zithromax.. Note that the patient's PSA has been steadily going up probably 6.4 up to 9.6 and then 13.5. He is being followed by Dr. Rivera. The patient is seen today 09/06/2019 in follow-up on the regular medical floor. He is awake and alert in no acute distress. Denies any worsening shortness of breath, cough or congestion. He is maintaining O2 saturations in the 90s on 4 L/m per nasal cannula. He is afebrile. Blood and sputum cultures pending. He remains on ceftriaxone and azithromycin along with bronchodilators and IV Solu- Medrol. Computed tomography scan of the chest was reviewed. Objective - Vital Signs Vital signs: Vital Signs Temp 97.4 F L 09/06/19 04:52 Pulse 72 09/06/19 11:51 Resp 17 09/06/19 04:52 BP 160/72 09/06/19 04:52 Pulse Ox 96 09/06/19 04:52 Intake & Output 09/05/19 09/06/19 09/06/19 18:59 06:59 18:59 Intake Total 540 Balance 540 Weight 72.575 kg 72.575 kg Intake: Oral 540 Other: Voiding Method Urinal # Voids 3 1 - Exam A very pleasant 84-year-old male patient appeared well nourished and normally developed. Vital signs as documented. Head exam is unremarkable. No scleral icterus or corneal arcus noted. Neck is without jugular venous distension, thyromegaly, or carotid bruits. Carotid upstrokes are brisk bilaterally. Lungs are diminished breath sounds along with some scattered rhonchi and some scat tered expiratory wheezes. Cardiac exam reveals the PMI to be normally sized and situated. Rhythm is regular. First and second heart sounds normal. No murmurs, rubs or gallops. Abdominal exam reveals normal bowel sounds, no masses, no organomegaly and no aortic enlargement. Extremities are nonedematous and both femoral and pedal pulses are normal.Examination of the skin revealed no evidence of significant rashes, suspicious appearing nevi or other concerning lesions. Neurologically the patient is awake and alert and is no focal neurological deficits - Labs CBC & Chem 7: 09/05/19 06:24 09/05/19 06:24 Labs: Abnormal Lab Results - Last 24 Hours (Table) 09/05/19 09/05/19 09/05/19 Range/Units 06:24 06:24 15:05 Plasma Lactic Acid Morris 2.7 H* (0.7-2.0) mmol/L PSA Screen 10.2 H (0.0-4.0) ng/mL Procalcitonin 0.28 H (0.02-0.09) ng/mL 09/05/19 Range/Units 19:02 Plasma Lactic Acid Morris 2.5 H* (0.7-2.0) mmol/L PSA Screen (0.0-4.0) ng/mL Procalcitonin (0.02-0.09) ng/mL Microbiology - Last 24 Hours (Table) 09/05/19 08:05 Blood Culture - Preliminary Blood No Growth after 24 hours 09/06/19 04:55 Sputum Culture - Preliminary Sputum Assessment and Plan Assessment: 1 acute on chronic shortness of breath with development of diffuse bilateral pulmonary infiltrates consistent with pneumonia although the possibility of underlying malignancy cannot be completely excluded. Clinically however, the patient does not have the typical signs and symptoms of pneumonia. No leukocytosis. No fever. No significant respiratory distress. It's possible that this is more so of a chronic process and malignancy needs to be considered. Other possibilities are atypical mycobacterium infections, sarcoidosis felt to be less likely. Computed tomography scan of the chest revealed air bronchograms in the right upper and middle lobes with associated increasing soft tissue density, prominent interstitium, probable postobstructive atelectasis changes, projections previously described mass may be secured. Concerns for probable metastatic disease progression. 2 moderate to severe COPD 3 bilateral pulmonary nodules/masses of varying sizes and numbers which has been evaluated in our pulmonary office. The initial right upper lobe mass that was identified in 2018 had decreased in size however since then the patient developed multiple bilateral pulmonary nodules of various sizes which have in creased in size based on the most recent CAT scan and this obviously raises the concern for malignancy. The patient's PSAs on the rise, consider underlying prostate cancer. Consider underlying primary bronchogenic carcinoma. 3 diverticular disease 4 hypertension 5 weight loss 6 seasonal ALLERGIES 7 mild lactic acidosis Plan The patient was seen and evaluated by Dr. Huerta CAT scan reviewed Would benefit from bronchoscopy with biopsy Continue current treatment plan We'll continue to follow I, the cosigning physician, performed a history & physical examination of the patient. Lungs sounds bilateral scattered rhonchi, few scattered wheezing. Maintaining good O2 saturations in the 90s on 4 L/m per nasal cannula. I discussed the assessment and plan of care with my nurse practitioner, Zuleyma Crews. I attest to the above note as dictated by her.
[2019-09-07] MEDS: IPRATROPIUM-ALBUTEROL 3 ML NEB INHALATION SCH ×7 (03:04→23:57)
[2019-09-07] MEDS: AZITHROMYCIN 500 MG in SODIUM CHLORIDE 0.9% 250 ML IVPB SCH (08:05)
[2019-09-07] MEDS: methylPREDNISolone SOD SUCCI 40 MG/ML 1 ML VIAL IV SCH ×3 (08:05→23:58)
[2019-09-07] MEDS: LOSARTAN 50 MG TAB PO SCH (08:06)
[2019-09-07] MEDS: ENOXAPARIN 40 MG/0.4 ML SYRINGE SQ SCH (08:06)
[2019-09-07] MEDS: amLODIPine 5 MG TAB PO SCH (08:06)
[2019-09-07] MEDS: guaiFENesin 600 MG TABLET.ER PO SCH ×2 (08:06→21:33)
[2019-09-07] MEDS: FORMOTEROL FUMARATE 20 MCG/2 ML NEBU INHALATION SCH ×2 (08:22→19:40)
[2019-09-07] MEDS: BUDESONIDE 1 MG/2 ML NEBU INHALATION SCH ×2 (08:22→19:40)
--- NOTE | 2019-09-07 12:24 | P.PN ---
Subjective Progress Note Date: 09/07/19 Principal diagnosis: Acute on chronic shortness of breath 84-year-old male patient with advanced COPD was coming in for worsening shortness of breath. He is our office patient and is followed up by Dr. Huff. The patient was first found out to have a right upper lobe mass based on the CAT scan of the chest that was done on 04/15/2018. At that time, the patient at 4.7 cm mass in the right upper lobe consistent with neoplasm. He also had at least 14 right-sided pulmonary nodules and 3 left-sided pulmonary nodules that were suspicious for metastases. A PET scan was done on 04/20/2018 and the patient was found to have no definite metabolic activity in the right upper lobe mass or tenderness subcentimeter by the pulmonary nodule. No convincing evidence of metastases and there was focal areas of metabolic activity in the abdomen of uncertain etiology. The patient was given a follow-up CAT scan of the chest on 07/30/2018 that showed the right upper lobe mass was slightly smaller in size although it persisted. Scattered bilateral pulmonary disease were still present. The last CAT scan of the chest was done on 01/29/2019 and showed multiple increasing size irregular nodules suspicious for metastases present in both lungs. There was irregular mass within the superior anterior right upper lobe measuring 2.5 x 3.5 cm that increased in size and there was also increasing extension anteriorly and peripherally. Suspicious mass also in the right upper lobe present measuring 0.8 and 1.1 cm. The patient was offered bronchoscopy and biopsy however this did not get done as the patient did not have a ride to take him back and forth. As such, no official confirmation of the diagnosis was established. This patient is an ex-smoker. He quit smoking in 2000. He is not oxygen dependent. He started getting short of breath within the past 24-48 hours and he end up coming into the hospital. He stated that he was utilizing his nebulizer. He was able to sleep because of his increased shortness of breath. No significant cough or sputum production. No pain. No reported fever. No fever or chills. White cell count was at 13.2. His plasma lactic acid level was at 2.2. Renal function and electrolytes are all within normal limits. His PSAs at 13.5. Influenza A and B was negative. The patient was placed on examination Rocephin and Zithromax.. Note that the patient's PSA has been steadily going up probably 6.4 up to 9.6 and then 13.5. He is being followed by Dr. Rivera. The patient is seen today 09/06/2019 in follow-up on the regular medical floor. He is awake and alert in no acute distress. Denies any worsening shortness of breath, cough or congestion. He is maintaining O2 saturations in the 90s on 4 L/m per nasal cannula. He is afebrile. Blood and sputum cultures pending. He remains on ceftriaxone and azithromycin along with bronchodilators and IV Solu- Medrol. Computed tomography scan of the chest was reviewed. The patient is seen today 09/07/2019 in follow-up on the regular medical floor. Resting comfortably in bed. Sputum and blood cultures pending. Continued on ceftriaxone and azithromycin. Continues to maintain O2 saturations in the 90s on 4 L/m per nasal cannula. He is afebrile. Objective - Vital Signs Vital signs: Vital Signs Temp 97.6 F 09/07/19 05:29 Pulse 79 09/07/19 11:48 Resp 18 09/07/19 05:29 BP 154/75 09/07/19 05:29 Pulse Ox 94 L 09/07/19 05:29 Intake & Output 09/06/19 09/07/19 09/07/19 18:59 06:59 18:59 Intake Total 540 Balance 540 Weight 72.575 kg Intake: Oral 540 Other: Voiding Method Urinal # Voids 3 2 - Exam A very pleasant 84-year-old male patient appeared well nourished and normally developed. Vital signs as documented. Head exam is unremarkable. No scleral icterus or corneal arcus noted. Neck is without jugular venous distension, thyromegaly, or carotid bruits. Carotid upstrokes are brisk bilaterally. Lungs are diminished breath sounds along with some scattered rhonchi and some scattered expiratory wheezes. Cardiac exam reveals the PMI to be normally sized and situated. Rhythm is regular. First and second heart sounds normal. No murmurs, rubs or gallops. Abdominal exam reveals normal bowel sounds, no masses, no organomegaly and no aortic enlargement. Extremities are nonedematous and both femoral and pedal pulses are normal.Examination of the skin revealed no evidence of significant rashes, suspicious appearing nevi or other concerning lesions. Neurologically the patient is awake and alert and is no focal neurological deficits - Labs CBC & Chem 7: 09/05/19 06:24 09/05/19 06:24 Labs: Microbiology - Last 24 Hours (Table) 09/05/19 08:05 Blood Culture - Preliminary Blood No Growth after 48 hours 09/06/19 04:55 Gram Stain - Preliminary Sputum Sputum Culture - Preliminary Assessment and Plan Assessment: 1 acute on chronic shortness of breath with development of diffuse bilateral pulmonary infiltrates consistent with pneumonia although the possibility of underlying malignancy cannot be completely excluded. Clinically however, the patient does not have the typical signs and symptoms of pneumonia. No leukocytosis. No fever. No significant respiratory distress. It's possible that this is more so of a chronic process and malignancy needs to be considered. Other possibilities are atypical mycobacterium infections, sarcoidosis felt to be less likely. Computed tomography scan of the chest revealed air bronchograms in the right upper and middle lobes with associated increasing soft tissue density, prominent interstitium, probable postobstructive atelectasis changes, projections previously described mass may be secured. Concerns for probable metastatic disease progression. 2 moderate to severe COPD 3 bilateral pulmonary nodules/masses of varying sizes and numbers which has been evaluated in our pulmonary office. The initial right upper lobe mass that was identified in 2018 had decreased in size however since then the patient developed multiple bilateral pulmonary nodules of various sizes which have increased in size based on the most recent CAT scan and this obviously raises the concern for malignancy. The patient's PSAs on the rise, consider underlying prostate cancer. Consider underlying primary bronchogenic carcinoma. 3 diverticular disease 4 hypertension 5 weight loss 6 seasonal ALLERGIES 7 mild lactic acidosis Plan Improving but not quite back to baseline Would benefit from bronchoscopy with biopsy if agreeable Continue current treatment plan We'll continue to follow I, the cosigning physician, performed a history & physical examination of the patient. Lungs sounds bilateral scattered rhonchi, few scattered wheezing. Maintaining good O2 saturations in the 90s on 4 L/m per nasal cannula. I dis cussed the assessment and plan of care with my nurse practitioner, Zuleyma Crews. I attest to the above note as dictated by her.
[2019-09-07] MEDS: PANTOPRAZOLE 40 MG TABLET PO SCH ×2 (15:33→17:08)
--- NOTE | 2019-09-08 00:37 | P.PN ---
Subjective Progress Note Date: 09/06/19 Principal diagnosis: Acute COPD exacerbation Pulmonary nodules This is a very pleasant 84-year-old patient of Dr. Jansen. Follows with server systems administrator Dr. Machado. Patient has long-standing history of COPD. Had been on oxygen. Because of insurance reasons, been using the same. Chronic stable medical conditions include hypertension, some cognitive impairment, GERD, BPH, osteoarthritis. Yesterday evening patient became short of breath started coughing bringing up phlegm that he described mainly as clear. Having some chills no obvious fever. Admitted for the same. Checks x-ray didn't reveal pneumonia. Started on IV ceftriaxone and Zithromax. Feeling better after the initial dose of antibiotic. Influenza type A and type B both negative EKG tracing personally reviewed by me-normal sinus rhythm Chest x-ray film personally reviewed by me-multilobar infiltrates 09/06/2019 Patient is currently lying in the bed operatively. Currently on oxygen at 4 L when nausea cannula. CT of the chest revealed air bronchograms in the right upper and middle lobes with associated increasing soft tissue density, prominent interstitium, probable postobstructive atelectasis changes, projections previously described mass may be secured. Concerns for probable metastatic dise ase progression. Currently being continued on antibiotics and IV steroids and breathing treatments. Pulmonary is planning for bronchoscopy and biopsy. Current medications reviewed. Objective - Vital Signs Vital signs: Vital Signs Temp 97.4 F L 09/06/19 04:52 Pulse 72 09/06/19 11:51 Resp 17 09/06/19 04:52 BP 160/72 09/06/19 04:52 Pulse Ox 96 09/06/19 04:52 Intake & Output 09/05/19 09/06/19 09/06/19 18:59 06:59 18:59 Intake Total 540 Balance 540 Weight 72.575 kg 72.575 kg Intake: Oral 540 Other: Voiding Method Urinal # Voids 3 1 - Exam GENERAL: BMI 23.3, sitting up in a chair, short of breath. EYES: Pupils equal. Conjunctiva normal. HEENT: External appearance of nose and ears normal, oral cavity grossly normal. NECK: JVD not raised; masses not palpable. HEART: First and second heart sounds are normal; no edema. LUNGS: Respiratory rate increased, decreased breath sounds prolonged expiration some wheezing. ABDOMEN: Soft, nontender, liver spleen not palpable, no masses palpable. PSYCH: Alert and oriented x3; mood and affect normal. MUSCULAR skeletal: Evidence of OA NEUROLOGICAL: Cranial nerves grossly intact; no facial asymmetry, power and sensation grossly intact. LYMPHATICS: No lymph nodes palpable in the axilla and neck - Labs CBC & Chem 7: 09/05/19 06:24 09/05/19 06:24 Labs: Abnormal Lab Results - Last 24 Hours (Table) 09/05/19 09/05/19 09/05/19 Range/Units 06:24 06:24 15:05 Plasma Lactic Acid Morris 2.7 H* (0.7-2.0) mmol/L PSA Screen 10.2 H (0.0-4.0) ng/mL Procalcitonin 0.28 H (0.02-0.09) ng/mL 09/05/19 Range/Units 19:02 Plasma Lactic Acid Morris 2.5 H* (0.7-2.0) mmol/L PSA Screen (0.0-4.0) ng/mL Procalcitonin (0.02-0.09) ng/mL Microbiology - Last 24 Hours (Table) 09/05/19 08:05 Blood Culture - Preliminary Blood No Growth after 24 hours 09/06/19 04:55 Sputum Culture - Preliminary Sputum Assessment and Plan Assessment: -Multilobar infiltrates, suspect gram-negative organism, pneumonia. Possible postobstructive. -Bilateral pulmonary nodules/masses concerning for malignancy. possible metastatic lesions. -Elevated PSA level -Essential hypertension -Mild cognitive impairment -GERD -BPH -Primary osteoarthritis -Acute COPD exacerbation in an ex-smoker Plan: Patient started on bronchodilators, IV steroids and inhaled and steroids. Antibiotics in form of IV ceftriaxone and Zithromax. Home medications resumed. Care was discussed with the patient questions were answered. Lovenox for DVT prophylaxis. Pulmonary is following. Considering bronchoscopy and biopsy. Time with Patient: Greater than 30
--- NOTE | 2019-09-08 00:39 | P.PN ---
Subjective Progress Note Date: 09/07/19 Principal diagnosis: Acute COPD exacerbation Pulmonary nodules This is a very pleasant 84-year-old patient of Dr. Jansen. Follows with adviser sales Dr. Machado. Patient has long-standing history of COPD. Had been on oxygen. Because of insurance reasons, been using the same. Chronic stable medical conditions include hypertension, some cognitive impairment, GERD, BPH, osteoarthritis. Yesterday evening patient became short of breath started coughing bringing up phlegm that he described mainly as clear. Having some chills no obvious fever. Admitted for the same. Checks x-ray didn't reveal pneumonia. Started on IV ceftriaxone and Zithromax. Feeling better after the initial dose of antibiotic. Influenza type A and type B both negative EKG tracing personally reviewed by me-normal sinus rhythm Chest x-ray film personally reviewed by me-multilobar infiltrates 09/06/2019 Patient is currently lying in the bed comfortably. Currently on oxygen at 4 L when nausea cannula. CT of the chest revealed air bronchograms in the right upper and middle lobes with associated increasing soft tissue density, prominent interstitium, probable postobstructive atelectasis changes, projections previously described mass may be secured. Concerns for probable metastatic dise ase progression. Currently being continued on antibiotics and IV steroids and breathing treatments. Pulmonary is planning for bronchoscopy and biopsy. September 07 2019 Patient is currently lying in the bed comfortably. Continue on IV steroids, DuoNeb's and antibiotics in the form of ceftriaxone and azithromycin. Currently requiring oxygen 4 L when nausea cannula. Pulmonary is planning for bron choscopy with biopsy if the patient is agreeable. Current medications reviewed. Objective - Vital Signs Vital signs: Vital Signs Temp 97.6 F 09/07/19 05:29 Pulse 79 09/07/19 11:48 Resp 18 09/07/19 05:29 BP 154/75 09/07/19 05:29 Pulse Ox 94 L 09/07/19 05:29 Intake & Output 09/06/19 09/07/19 09/07/19 18:59 06:59 18:59 Intake Total 540 Balance 540 Weight 72.575 kg Intake: Oral 540 Other: Voiding Method Urinal # Voids 3 2 - Exam GENERAL: BMI 23.3, sitting up in a chair, short of breath. EYES: Pupils equal. Conjunctiva normal. HEENT: External appearance of nose and ears normal, oral cavity grossly normal. NECK: JVD not raised; masses not palpable. HEART: First and second heart sounds are normal; no edema. LUNGS: Respiratory rate increased, decreased breath sounds prolonged expiration some wheezing. ABDOMEN: Soft, nontender, liver spleen not palpable, no masses palpable. PSYCH: Alert and oriented x3; mood and affect normal. MUSCULAR skeletal: Evidence of OA NEUROLOGICAL: Cranial nerves grossly intact; no facial asymmetry, power and sensation grossly intact. LYMPHATICS: No lymph nodes palpable in the axilla and neck - Labs CBC & Chem 7: 09/05/19 06:24 09/05/19 06:24 Labs: Microbiology - Last 24 Hours (Table) 09/05/19 08:05 Blood Culture - Preliminary Blood No Growth after 48 hours 09/06/19 04:55 Gram Stain - Preliminary Sputum Sputum Culture - Preliminary Assessment and Plan Assessment: -Multilobar infiltrates, suspect gram-negative organism, pneumonia. Possible p ostobstructive. -Bilateral pulmonary nodules/masses concerning for malignancy. possible metastatic lesions. -Elevated PSA level -Essential hypertension -Mild cognitive impairment -GERD -BPH -Primary osteoarthritis -Acute COPD exacerbation in an ex-smoker Plan: Patient started on bronchodilators, IV steroids and inhaled and steroids. Antibiotics in form of IV ceftriaxone and Zithromax. Home medications resumed. Care was discussed with the patient questions were answered. Lovenox for DVT pr ophylaxis. Pulmonary is following. Considering bronchoscopy and biopsy. Time with Patient: Greater than 30
[2019-09-08] MEDS: FORMOTEROL FUMARATE 20 MCG/2 ML NEBU INHALATION SCH ×2 (07:27→20:37)
[2019-09-08] MEDS: IPRATROPIUM-ALBUTEROL 3 ML NEB INHALATION SCH ×5 (07:27→20:36)
[2019-09-08] MEDS: BUDESONIDE 1 MG/2 ML NEBU INHALATION SCH ×2 (07:27→20:36)
[2019-09-08] MEDS: ENOXAPARIN 40 MG/0.4 ML SYRINGE SQ SCH (07:51)
[2019-09-08] MEDS: methylPREDNISolone SOD SUCCI 40 MG/ML 1 ML VIAL IV SCH ×2 (07:51→16:25)
[2019-09-08] MEDS: PANTOPRAZOLE 40 MG TABLET PO SCH (07:52)
[2019-09-08] MEDS: guaiFENesin 600 MG TABLET.ER PO SCH ×2 (07:52→20:43)
[2019-09-08] MEDS: AZITHROMYCIN 500 MG in SODIUM CHLORIDE 0.9% 250 ML IVPB SCH (07:52)
[2019-09-08] MEDS: LOSARTAN 50 MG TAB PO SCH (07:52)
[2019-09-08] MEDS: amLODIPine 5 MG TAB PO SCH (07:52)
--- NOTE | 2019-09-08 11:40 | P.PN ---
Subjective Progress Note Date: 09/08/19 Principal diagnosis: Acute on chronic shortness of breath 84-year-old male patient with advanced COPD was coming in for worsening shortness of breath. He is our office patient and is followed up by Dr. Huff. The patient was first found out to have a right upper lobe mass based on the CAT scan of the chest that was done on 04/15/2018. At that time, the patient at 4.7 cm mass in the right upper lobe consistent with neoplasm. He also had at least 14 right-sided pulmonary nodules and 3 left-sided pulmonary nodules that were suspicious for metastases. A PET scan was done on 04/20/2018 and the patient was found to have no definite metabolic activity in the right upper lobe mass or tenderness subcentimeter by the pulmonary nodule. No convincing evidence of metastases and there was focal areas of metabolic activity in the abdomen of uncertain etiology. The patient was given a follow-up CAT scan of the chest on 07/30/2018 that showed the right upper lobe mass was slightly smaller in size although it persisted. Scattered bilateral pulmonary disease were still present. The last CAT scan of the chest was done on 01/29/2019 and showed multiple increasing size irregular nodules suspicious for metastases present in both lungs. There was irregular mass within the superior anterior right upper lobe measuring 2.5 x 3.5 cm that increased in size and there was also increasing extension anteriorly and peripherally. Suspicious mass also in the right upper lobe present measuring 0.8 and 1.1 cm. The patient was offered bronchoscopy and biopsy however this did not get done as the patient did not have a ride to take him back and forth. As such, no official confirmation of the diagnosis was established. This patient is an ex-smoker. He quit smoking in 2000. He is not oxygen dependent. He started getting short of breath within the past 24-48 hours and he end up coming into the hospital. He stated that he was utilizing his nebulizer. He was able to sleep because of his increased shortness of breath. No significant cough or sputum production. No pain. No reported fever. No fever or chills. White cell count was at 13.2. His plasma lactic acid level was at 2.2. Renal function and electrolytes are all within normal limits. His PSAs at 13.5. Influenza A and B was negative. The patient was placed on examination Rocephin and Zithromax.. Note that the patient's PSA has been steadily going up probably 6.4 up to 9.6 and then 13.5. He is being followed by Dr. Rivera. The patient is seen today 09/06/2019 in follow-up on the regular medical floor. He is awake and alert in no acute distress. Denies any worsening shortness of breath, cough or congestion. He is maintaining O2 saturations in the 90s on 4 L/m per nasal cannula. He is afebrile. Blood and sputum cultures pending. He remains on ceftriaxone and azithromycin along with bronchodilators and IV Solu- Medrol. Computed tomography scan of the chest was reviewed. The patient is seen today 09/07/2019 in follow-up on the regular medical floor. Resting comfortably in bed. Sputum and blood cultures pending. Continued on ceftriaxone and azithromycin. Continues to maintain O2 saturations in the 90s on 4 L/m per nasal cannula. He is afebrile. The patient is seen today 09/08/2019 in follow-up on the regular medical floor. He is awake and alert in no acute distress. No worsening shortness of breath, cough or congestion. He is maintaining good O2 saturations in the mid 90s on 4 L/m per nasal cannula. Blood and sputum cultures reveal no growth. He is continued on ceftriaxone and azithromycin along with bronchodilators. He is agreeable to bronchoscopy with biopsies. Objective - Vital Signs Vital signs: Vital Signs Temp 97.6 F 09/08/19 07:00 Pulse 84 09/08/19 07:48 Resp 16 09/08/19 07:00 BP 143/76 09/08/19 07:00 Pulse Ox 95 09/08/19 07:00 Intake & Output 09/07/19 09/08/19 09/08/19 18:59 06:59 18:59 Intake Total 450 Balance 450 Intake: Oral 450 Other: Voiding Method Urinal # Voids 2 2 - Exam A very pleasant 84-year-old male patient appeared well nourished and normally developed. Vital signs as documented. Head exam is unremarkable. No scleral icterus or corneal arcus noted. Neck is without jugular venous distension, thyromegaly, or carotid bruits. Carotid upstrokes are brisk bilaterally. Lungs are diminished breath sounds along with some scattered rhonchi and some scattered expiratory wheezes. Cardiac exam reveals the PMI to be normally sized and situated. Rhythm is regular. First and second heart sounds normal. No murmurs, rubs or gallops. Abdominal exam reveals normal bowel sounds, no masses, no organomegaly and no aortic enlargement. Extremities are nonedematous and both femoral and pedal pulses are normal.Examination of the skin revealed no evidence of significant rashes, suspicious appearing nevi or other concerning lesions. Neurologically the patient is awake and alert and is no focal neurological deficits - Labs CBC & Chem 7: 09/05/19 06:24 09/05/19 06:24 Labs: Microbiology - Last 24 Hours (Table) 09/05/19 08:05 Blood Culture - Preliminary Blood No Growth after 72 hours Assessment and Plan Assessment: 1 acute on chronic shortness of breath with development of diffuse bilateral pulmonary infiltrates consistent with pneumonia although the possibility of underlying malignancy cannot be completely excluded. Clinically however, the patient does not have the typical signs and symptoms of pneumonia. No leukocytosis. No fever. No significant respiratory distress. It's possible that this is more so of a chronic process and malignancy needs to be considered. Other possibilities are atypical mycobacterium infections, sarcoidosis felt to be less likely. Computed tomography scan of the chest revealed air bronchograms in the right upper and middle lobes with associated increasing soft tissue density, prominent interstitium, probable postobstructive atelectasis changes, projections previously described mass may be secured. Concerns for probable metastatic disease progression. 2 moderate to severe COPD 3 bilateral pulmonary nodules/masses of varying sizes and numbers which has been evaluated in our pulmonary office. The initial right upper lobe mass that was identified in 2018 had decreased in size however since then the patient developed multiple bilateral pulmonary nodules of various sizes which have increased in size based on the most recent CAT scan and this obviously raises the concern for malignancy. The patient's PSAs on the rise, consider underlying prostate cancer. Consider underlying primary bronchogenic carcinoma. 3 diverticular disease 4 hypertension 5 weight loss 6 seasonal ALLERGIES 7 mild lactic acidosis Plan Improving but not quite back to baseline He is agreeable to bronchoscopy with biopsies. We'll plan for tomorrow and possible discharge after that Continue current treatment plan titrate down the FiO2 as tolerated We'll continue to follow I, the cosigning physician, performed a history & physical examination of the patient. Lungs sounds bilateral scattered rhonchi, few scattered wheezing. Maintaining good O2 saturations in the 90s on 4 L/m per nasal cannula. I discussed the assessment and plan of care with my nurse practitioner, Zuleyma Crews. I attest to the above note as dictated by her.
[2019-09-09] MEDS: IPRATROPIUM-ALBUTEROL 3 ML NEB INHALATION SCH ×6 (00:10→20:21)
[2019-09-09] MEDS: methylPREDNISolone SOD SUCCI 40 MG/ML 1 ML VIAL IV SCH ×2 (00:11→07:58)
[2019-09-09] MEDS: amLODIPine 5 MG TAB PO SCH (07:58)
[2019-09-09] MEDS: LOSARTAN 50 MG TAB PO SCH (07:58)
[2019-09-09] MEDS: PANTOPRAZOLE 40 MG TABLET PO SCH (07:58)
[2019-09-09] MEDS: guaiFENesin 600 MG TABLET.ER PO SCH ×2 (07:58→21:51)
[2019-09-09] MEDS: ENOXAPARIN 40 MG/0.4 ML SYRINGE SQ SCH (07:59)
[2019-09-09] MEDS: AZITHROMYCIN 500 MG in SODIUM CHLORIDE 0.9% 250 ML IVPB SCH (07:59)
[2019-09-09] MEDS: BUDESONIDE 1 MG/2 ML NEBU INHALATION SCH ×2 (09:33→20:21)
[2019-09-09] MEDS: FORMOTEROL FUMARATE 20 MCG/2 ML NEBU INHALATION SCH ×2 (09:33→20:21)
[2019-09-09] MEDS ORDERED: MIDAZOLAM 2 MG/2 ML VIAL ONE (11:43)
[2019-09-09] MEDS ORDERED: IV FLUID CONTINUATION 1,000 ML IV ONE (11:43)
[2019-09-09] MEDS ORDERED: LIDOCAINE 1% INJ 10MG/ML (20 ML MDV) ONE (11:43)
[2019-09-09] MEDS ORDERED: IV FLUID CONTINUATION 500 ML IV ONE (11:43)
[2019-09-09] MEDS ORDERED: PROPOFOL 10 MG/ML 20 ML VIAL IV ONE (11:43)
[2019-09-09] MEDS ORDERED: fentaNYL (PF) 50 MCG/ML 2 ML AMP ONE (11:43)
[2019-09-09] MEDS ORDERED: LIDOCAINE 2% INJ 20 MG/ML INTRATRACH ONE (11:52)
--- NOTE | 2019-09-09 12:34 | P.PN ---
Subjective Progress Note Date: 09/09/19 Principal diagnosis: Acute on chronic shortness of breath 84-year-old male patient with advanced COPD was coming in for worsening shortness of breath. He is our office patient and is followed up by Dr. Huff. The patient was first found out to have a right upper lobe mass based on the CAT scan of the chest that was done on 04/15/2018. At that time, the patient at 4.7 cm mass in the right upper lobe consistent with neoplasm. He also had at least 14 right-sided pulmonary nodules and 3 left-sided pulmonary nodules that were suspicious for metastases. A PET scan was done on 04/20/2018 and the patient was found to have no definite metabolic activity in the right upper lobe mass or tenderness subcentimeter by the pulmonary nodule. No convincing evidence of metastases and there was focal areas of metabolic activity in the abdomen of uncertain etiology. The patient was given a follow-up CAT scan of the chest on 07/30/2018 that showed the right upper lobe mass was slightly smaller in size although it persisted. Scattered bilateral pulmonary disease were still present. The last CAT scan of the chest was done on 01/29/2019 and showed multiple increasing size irregular nodules suspicious for metastases present in both lungs. There was irregular mass within the superior anterior right upper lobe measuring 2.5 x 3.5 cm that increased in size and there was also increasing extension anteriorly and peripherally. Suspicious mass also in the right upper lobe present measuring 0.8 and 1.1 cm. The patient was offered bronchoscopy and biopsy however this did not get done as the patient did not have a ride to take him back and forth. As such, no official confirmation of the diagnosis was established. This patient is an ex-smoker. He quit smoking in 2000. He is not oxygen dependent. He started getting short of breath within the past 24-48 hours and he end up coming into the hospital. He stated that he was utilizing his nebulizer. He was able to sleep because of his increased shortness of breath. No significant cough or sputum production. No pain. No reported fever. No fever or chills. White cell count was at 13.2. His plasma lactic acid level was at 2.2. Renal function and electrolytes are all within normal limits. His PSAs at 13.5. Influenza A and B was negative. The patient was placed on examination Rocephin and Zithromax.. Note that the patient's PSA has been steadily going up probably 6.4 up to 9.6 and then 13.5. He is being followed by Dr. Rivera. The patient is seen today 09/06/2019 in follow-up on the regular medical floor. He is awake and alert in no acute distress. Denies any worsening shortness of breath, cough or congestion. He is maintaining O2 saturations in the 90s on 4 L/m per nasal cannula. He is afebrile. Blood and sputum cultures pending. He remains on ceftriaxone and azithromycin along with bronchodilators and IV Solu- Medrol. Computed tomography scan of the chest was reviewed. The patient is seen today 09/07/2019 in follow-up on the regular medical floor. Resting comfortably in bed. Sputum and blood cultures pending. Continued on ceftriaxone and azithromycin. Continues to maintain O2 saturations in the 90s on 4 L/m per nasal cannula. He is afebrile. The patient is seen today 09/08/2019 in follow-up on the regular medical floor. He is awake and alert in no acute distress. No worsening shortness of breath, cough or congestion. He is maintaining good O2 saturations in the mid 90s on 4 L/m per nasal cannula. Blood and sputum cultures reveal no growth. He is continued on ceftriaxone and azithromycin along with bronchodilators. He is agreeable to bronchoscopy with biopsies. The patient is seen today 09/09/2019 in follow-up on the regular medical floor. He is resting comfortably in bed. Awake and alert in no acute distress. No worsening shortness of breath, cough or congestion. Blood and sputum cultures revealed no growth. Plan is for bronchoscopy with biopsies today. Objective - Vital Signs Vital signs: Vital Signs Temp 97.9 F 09/09/19 08:25 Pulse 76 09/09/19 10:00 Resp 18 09/09/19 08:25 BP 164/89 09/09/19 08:25 Pulse Ox 98 09/09/19 08:25 Intake & Output 09/08/19 09/09/19 09/09/19 18:59 06:59 18:59 Intake Total 340 200 Balance 340 200 Intake: IV 200 Oral 340 Other: Voiding Method Toilet # Voids 3 1 - Exam A very pleasant 84-year-old male patient, on 2 L nasal cannula, appeared well n ourished and normally developed. Vital signs as documented. Head exam is unremarkable. No scleral icterus or corneal arcus noted. Neck is without jugular venous distension, thyromegaly, or carotid bruits. Carotid upstrokes are brisk bilaterally. Lungs are diminished breath sounds along with some scattered rhonchi and some scattered expiratory wheezes. Cardiac exam reveals the PMI to be normally sized and situated. Rhythm is regular. First and second heart sounds normal. No murmurs, rubs or gallops. Abdominal exam reveals normal bowel sounds, no masses, no organomegaly and no aortic enlargement. Extremities are nonedematous and both femoral and pedal pulses are normal.Examination of the skin revealed no evidence of significant rashes, suspicious appearing nevi or other concerning lesions. Neurologically the patient is awake and alert and is no focal neurological deficits - Labs CBC & Chem 7: 09/05/19 06:24 09/05/19 06:24 Labs: Microbiology - Last 24 Hours (Table) 09/05/19 08:05 Blood Culture - Preliminary Blood No Growth after 96 hours 09/06/19 04:55 Gram Stain - Final Sputum Sputum Culture - Final Assessment and Plan Assessment: 1 acute on chronic shortness of breath with development of diffuse bilateral pulmonary infiltrates consistent with pneumonia although the possibility of underlying malignancy cannot be completely excluded. Clinically however, the patient does not have the typical signs and symptoms of pneumonia. No leukocytosis. No fever. No significant respiratory distress. It's possible that this is more so of a chronic process and malignancy needs to be considered. Other possibilities are atypical mycobacterium infections, sarcoidosis felt to be less likely. Computed tomography scan of the chest revealed air bronchograms in the right upper and middle lobes with associated increasing soft tissue density, prominent interstitium, probable postobstructive atelectasis changes, projections previously described mass may be secured. Concerns for probable metastatic disease progression. 2 moderate to severe COPD 3 bilateral pulmonary nodules/masses of varying sizes and numbers which has been evaluated in our pulmonary office. The initial right upper lobe mass that was identified in 2018 had decreased in size however since then the patient developed multiple bilateral pulmonary nodules of various sizes which have increased in size based on the most recent CAT scan and this obviously raises the concern for malignancy. The patient's PSAs on the rise, consider underlying prostate cancer. Consider underlying primary bronchogenic carcinoma. 3 diverticular disease 4 hypertension 5 weight loss 6 seasonal ALLERGIES 7 mild lactic acidosis Plan Bronchoscopy with BAL and biopsies performed today Continue current treatment plan IV Solu-Medrol converted to prednisone Probable discharge in a.m. I, the cosigning physician, performed a history & physical examination of the patient. Lungs sounds bilateral scattered rhonchi, few scattered wheezing. Maintaining good O2 saturations in the 90s on 2 L/m per nasal cannula. I discussed the assessment and plan of care with my nurse practitioner, Zuleyma Crews. I attest to the above note as dictated by her.
--- NOTE | 2019-09-09 12:39 | FL ---
EXAMINATION TYPE: FL bronchoscopy DATE OF EXAM: 09/09/2019 CLINICAL HISTORY: Right lung biopsy. Abnormal CT. TECHNIQUE: Fluoroscopy. COMPARISON: Chest CT 4 days ago.. FINDINGS: Fluoroscopic guidance was provided during bronchoscopy with right lung biopsy procedure pe rformed by high school learning support teacher. A total of 71 seconds of fluoroscopic time was utilized during the procedu re and single spot fluoroscopic image is acquired and shows advancement of bronchoscope towards the r ight lung for sampling. IMPRESSION: As Above.
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
[2019-09-09 17:02] LABS: Color,BF Red
[2019-09-09 17:03] LABS: Appearance,BF Bloody; Nucleated Cells, Body Fluid 1500 /uL; RBC, Body Fluid 52750 /uL
[2019-09-09 17:06] LABS: Mononuclear WBC,Body Fluid 37 %; Polynuclear WBC,Body Fluid 63 %; Total Cells Counted,Body Fluid 100
--- NOTE | 2019-09-09 21:54 | PCN ---
PROCEDURE NOTE OPERATIVE REPORT: Bronchoscopy with transbronchial biopsies of the right upper lobe and a bronchoalveolar lavage of the right upper lobe. PREOPERATIVE DIAGNOSIS: Right upper lobe mass/consolidation. POSTOPERATIVE DIAGNOSIS: Right upper lobe mass/consolidation. ANESTHESIA USED: IV conscious sedation. PROCEDURE IN DETAIL: Patient was prepared according the bronchoscopy protocol. He was brought into the bronchoscopy suite, placed in a supine position, we monitored his O2 saturation continuously, blood pressure was intermittently monitored, and cardiac rhythm was continuously monitored. O2 was applied via nasal cannula. After adequate IV conscious sedation, the bronchoscope was inserted through the right naris down to the area of the vocal cords, which were patent. Lidocaine applied over the vocal cords, and the bronchoscope was advanced further down. Thorough examination was done of the trachea, right upper lobe, right middle lobe, right lower lobe, left upper lobe lingula and left lower lobe. There was no evidence of any endobronchial tumors, however, the right lower lobe was noted to be extrinsically compressed and the posterior apical segment of the right upper lobe was also extrinsically compressed. The bronchoscope was wedged into the anterior segment of the right upper lobe, and multiple transbronchial biopsies were done. Washings and lavage of the right upper lobe anterior segment was also done. Procedure was well tolerated, no evidence of any immediate complications. The specimen obtained was sent for different diagnostic studies. MMODL / IJN: [id number] /
[2019-09-10] MEDS: IPRATROPIUM-ALBUTEROL 3 ML NEB INHALATION SCH ×4 (00:33→11:20)
--- NOTE | 2019-09-10 01:09 | P.PN ---
Subjective Progress Note Date: 09/08/19 Principal diagnosis: Acute COPD exacerbation Pulmonary nodules This is a very pleasant 84-year-old patient of Dr. Jansen. Follows with draw string knotter Dr. Machado. Patient has long-standing history of COPD. Had been on oxygen. Because of insurance reasons, been using the same. Chronic stable medical conditions include hypertension, some cognitive impairment, GERD, BPH, osteoarthritis. Yesterday evening patient became short of breath started coughing bringing up phlegm that he described mainly as clear. Having some chills no obvious fever. Admitted for the same. Checks x-ray didn't reveal pneumonia. Started on IV ceftriaxone and Zithromax. Feeling better after the initial dose of antibiotic. Influenza type A and type B both negative EKG tracing personally reviewed by me-normal sinus rhythm Chest x-ray film personally reviewed by me-multilobar infiltrates 09/06/2019 Patient is currently lying in the bed comfortably. Currently on oxygen at 4 L when nausea cannula. CT of the chest revealed air bronchograms in the right upper and middle lobes with associated increasing soft tissue density, prominent interstitium, probable postobstructive atelectasis changes, projections previously described mass may be secured. Concerns for probable metastatic dise ase progression. Currently being continued on antibiotics and IV steroids and breathing treatments. Pulmonary is planning for bronchoscopy and biopsy. September 07 2019 Patient is currently lying in the bed comfortably. Continue on IV steroids, DuoNeb's and antibiotics in the form of ceftriaxone and azithromycin. Currently requiring oxygen 4 L when nausea cannula. Pulmonary is planning for bron choscopy with biopsy if the patient is agreeable. 09/08/2019 Patient is currently lying in the bed comfortably. Still requiring oxygen at 4 L with another cannula. Agreeable to get up bronchoscopy due to pulmonary nodules. Pulmonary is planning for procedure tomorrow. No fever no chills. No nausea vomiting or abdominal pain. No diarrhea. No chest pain. Current medications reviewed. Objective - Vital Signs Vital signs: Vital Signs Temp 98.1 F 09/08/19 12:55 Pulse 81 09/08/19 16:16 Resp 16 09/08/19 16:16 BP 135/84 09/08/19 12:55 Pulse Ox 95 09/08/19 16:16 Intake & Output 09/08/19 09/08/19 09/09/19 06:59 18:59 06:59 Intake Total 450 Balance 450 Intake: Oral 450 Other: Voiding Method Urinal # Voids 2 3 - Exam GENERAL: BMI 23.3, sitting up in a chair, short of breath. EYES: Pupils equal. Conjunctiva normal. HEENT: External appearance of nose and ears normal, oral cavity grossly normal. NECK: JVD not raised; masses not palpable. HEART: First and second heart sounds are normal; no edema. LUNGS: Respiratory rate increased, decreased breath sounds prolonged expiration some wheezing. ABDOMEN: Soft, nontender, liver spleen not palpable, no masses palpable. PSYCH: Alert and oriented x3; mood and affect normal. MUSCULAR skeletal: Evidence of OA NEUROLOGICAL: Cranial nerves grossly intact; no facial asymmetry, power and sensation grossly intact. LYMPHATICS: No lymph nodes palpable in the axilla and neck - Labs CBC & Chem 7: 09/05/19 06:24 09/05/19 06:24 Labs: Microbiology - Last 24 Hours (Table) 09/06/19 04:55 Gram Stain - Final Sputum Sputum Culture - Final 09/05/19 08:05 Blood Culture - Preliminary Blood No Growth after 72 hours Assessment and Plan Assessment: -Multilobar infiltrates, suspect gram-negative organism, pneumonia. Possible postobstructive. -Bilateral pulmonary nodules/masses concerning for malignancy. possible metastatic lesions. -Elevated PSA level -Essential hypertension -Mild cognitive impairment -GERD -BPH -Primary osteoarthritis -Acute COPD exacerbation in an ex-smoker Plan: Patient started on bronchodilators, IV steroids and inhaled and steroids. Antibiotics in form of IV ceftriaxone and Zithromax. Home medications resumed. Care was discussed with the patient questions were answered. Lovenox for DVT prophylaxis. Pulmonary is following. Considering bronchoscopy and biopsy. Time with Patient: Greater than 30
--- NOTE | 2019-09-10 01:11 | P.PN ---
Subjective Progress Note Date: 09/09/19 Principal diagnosis: Acute COPD exacerbation Pulmonary nodules This is a very pleasant 84-year-old patient of Dr. Jansen. Follows with credit analyst Dr. Machado. Patient has long-standing history of COPD. Had been on oxygen. Because of insurance reasons, been using the same. Chronic stable medical conditions include hypertension, some cognitive impairment, GERD, BPH, osteoarthritis. Yesterday evening patient became short of breath started coughing bringing up phlegm that he described mainly as clear. Having some chills no obvious fever. Admitted for the same. Checks x-ray didn't reveal pneumonia. Started on IV ceftriaxone and Zithromax. Feeling better after the initial dose of antibiotic. Influenza type A and type B both negative EKG tracing personally reviewed by me-normal sinus rhythm Chest x-ray film personally reviewed by me-multilobar infiltrates 09/06/2019 Patient is currently lying in the bed comfortably. Currently on oxygen at 4 L when nausea cannula. CT of the chest revealed air bronchograms in the right upper and middle lobes with associated increasing soft tissue density, prominent interstitium, probable postobstructive atelectasis changes, projections previously described mass may be secured. Concerns for probable metastatic dise ase progression. Currently being continued on antibiotics and IV steroids and breathing treatments. Pulmonary is planning for bronchoscopy and biopsy. September 07 2019 Patient is currently lying in the bed comfortably. Continue on IV steroids, DuoNeb's and antibiotics in the form of ceftriaxone and azithromycin. Currently requiring oxygen 4 L when nausea cannula. Pulmonary is planning for bron choscopy with biopsy if the patient is agreeable. 09/08/2019 Patient is currently lying in the bed comfortably. Still requiring oxygen at 4 L with another cannula. Agreeable to get up bronchoscopy due to pulmonary nodules. Pulmonary is planning for procedure tomorrow. No fever no chills. No nausea vomiting or abdominal pain. No diarrhea. No chest pain. 09/09/2019 Patient is comfortable. Denied any worsening shortness of breath or chest pain. Patient was seen by psychiatry for desicion making capacity and patient did agree to get bronchoscopy.. No other acute overnight issues. Current medications reviewed. Objective - Vital Signs Vital signs: Vital Signs Temp 97.3 F L 09/09/19 14:03 Pulse 84 09/09/19 14:03 Resp 18 03/17/20 14:03 BP 146/76 09/09/19 14:03 Pulse Ox 96 09/09/19 14:03 Intake & Output 09/09/19 09/09/19 09/10/19 06:59 18:59 06:59 Intake Total 340 850 Balance 340 850 Intake: IV 200 Oral 340 650 Other: Voiding Method Toilet # Voids 1 2 - Exam GENERAL: BMI 23.3, sitting up in a chair, short of breath. EYES: Pupils equal. Conjunctiva normal. HEENT: External appearance of nose and ears normal, oral cavity grossly normal. NECK: JVD not raised; masses not palpable. HEART: First and second heart sounds are normal; no edema. LUNGS: Respiratory rate increased, decreased breath sounds prolonged expiration some wheezing. ABDOMEN: Soft, nontender, liver spleen not palpable, no masses palpable. PSYCH: Alert and oriented x3; mood and affect normal. MUSCULAR skeletal: Evidence of OA NEUROLOGICAL: Cranial nerves grossly intact; no facial asymmetry, power and sensation grossly intact. LYMPHATICS: No lymph nodes palpable in the axilla and neck - Labs CBC & Chem 7: 09/05/19 06:24 09/05/19 06:24 Labs: Microbiology - Last 24 Hours (Table) 09/05/19 08:05 Blood Culture - Preliminary Blood No Growth after 96 hours Assessment and Plan Assessment: -Multilobar infiltrates, suspect gram-negative organism, pneumonia. Possible postobstructive. -Bilateral pulmonary nodules/masses concerning for malignancy. possible metastatic lesions. -Elevated PSA level -Essential hypertension -Mild cognitive impairment -GERD -BPH -Primary osteoarthritis -Acute COPD exacerbation in an ex-smoker Plan: Patient started on bronchodilators, IV steroids and inhaled and steroids. Antibiotics in form of IV ceftriaxone and Zithromax. Home medications resumed. Care was discussed with the patient questions were answered. Lovenox for DVT prophylaxis. Pulmonary is following. bronchoscopy and biopsy today. Time with Patient: Greater than 30
[2019-09-10 07:01] VITALS: BP 171/85; RESP 20; TEMP 97.6
[2019-09-10] MEDS: BUDESONIDE 1 MG/2 ML NEBU INHALATION SCH (07:27)
[2019-09-10] MEDS: FORMOTEROL FUMARATE 20 MCG/2 ML NEBU INHALATION SCH (07:27)
[2019-09-10 07:57] VITALS: PULSE 84
[2019-09-10] MEDS: guaiFENesin 600 MG TABLET.ER PO SCH (08:15)
[2019-09-10] MEDS: PANTOPRAZOLE 40 MG TABLET PO SCH (08:15)
[2019-09-10] MEDS: amLODIPine 5 MG TAB PO SCH (08:16)
[2019-09-10] MEDS: LOSARTAN 50 MG TAB PO SCH (08:16)
[2019-09-10] MEDS: ENOXAPARIN 40 MG/0.4 ML SYRINGE SQ SCH (08:16)
[2019-09-10 08:58] LABS: Basophils % (A) 0 %; Eosinophils # (A) 0.1 k/uL (0-0.7); Eosinophils % (A) 1 %; HCT 43.9 % (39.0-53.0); HGB 14.1 gm/dL (13.0-17.5); Lymphocytes # (A) 1.4 k/uL (1.0-4.8); Lymphocytes % (A) 17 %; MCH 32.3 pg (25.0-35.0); MCHC 32.1 g/dL (31.0-37.0); MCV 100.9 fL (80.0-100.0); Mean Platelet Volume 7.9; Monocytes # (A) 0.8 k/uL (0-1.0); Monocytes % (A) 10 %; Neutrophils # (A) 5.9 k/uL (1.3-7.7); Neutrophils % (A) 72 %; Platelet Count 315 k/uL (150-450); RBC 4.36 m/uL (4.30-5.90); RDW 12.2 % (11.5-15.5); WBC 8.2 k/uL (3.8-10.6)
[2019-09-10] MEDS ORDERED: predniSONE 20 MG TAB PO SCH (09:00)
[2019-09-10] MEDS: AZITHROMYCIN 500 MG in SODIUM CHLORIDE 0.9% 250 ML IVPB SCH (09:09)
[2019-09-10 09:11] LABS: Calcium 8.5 mg/dL (8.4-10.2); Potassium 4.6 mmol/L (3.5-5.1)
[2019-09-10] MEDS ORDERED: FLUCONAZOLE 100 MG TAB PO ONE (10:40)
[2019-09-11] MEDS ORDERED: FLUCONAZOLE 100 MG TAB PO SCH (09:00)
--- NOTE | 2019-09-13 20:40 | P.DS ---
Providers Date of admission: 09/05/19 07:32 Expected date of discharge: 09/10/19 Attending physician: Dez Sosa Consults: 09/05/19 07:32 Consult Physician Routine Consulting Provider: Julio C Huff Consult Reason/Comments: established COPD patient, pneumonia Do you want consulting provider notified?: Yes, Notify in am 09/09/19 09:59 Consult Physician Stat Consulting Provider: Robert Washington Consult Reason/Comments: Compentency evaluation for needed procedure Do you want consulting provider notified?: Yes Primary care physician: [facility] Course: Chief Complaint: Shortness of breath History of presenting complaint: This is a very pleasant 84-year-old patient of Dr. Jansen. Follows with paraffin machine operator Dr. Machado. Patient has long-standing history of COPD. Had been on oxygen. Because of insurance reasons, not been using the same. Chronic stable medical conditions include hypertension, some cognitive impairment, GERD, BPH, osteoarthritis. Yesterday evening patient became short of breath started coughing bringing up phlegm that he described mainly as clear. Having some chills no obvious fever. Admitted for the same. Checks x-ray reveal pneumonia. Started on IV ceftriaxone and Zithromax. Feeling better after the initial dose of antibiotic. Admitted with pneumonia. Given IV antibiotics. Did undergo bronchoscopy with biopsy. 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 Will follow with pulmonary as an outpatient. Care was discussed. Cleared by pulmonary. We'll follow with him as an outpatient. Consultation: Dr. Huff from pulmonary Physical examination: VITAL SIGNS: 97.6, 67, 20, 171/85, 97% on 2 L GENERAL: Sitting up, feeling better. EYES: Pupils equal. Conjunctiva normal. HEENT: External appearance of nose and ears normal, oral cavity grossly normal. NECK: JVD not raised; masses not palpable. HEART: First and second heart sounds are normal; no edema. LUNGS: Respiratory rate increased, decreased breath sounds ABDOMEN: Soft, nontender, liver spleen not palpable, no masses palpable. PSYCH: Alert and oriented x3; mood and affect normal. MUSCULAR skeletal: Evidence of OA INVESTIGATIONS, reviewed in the clinical context: White count 8.2 hemoglobin 14.1 potassium 4.6 creatinine 0.91 White count 13.2 hemoglobin 13.5 potassium 4.4 creatinine 0.73 Influenza type A and type B both negative EKG tracing personally reviewed by me-normal sinus rhythm Chest x-ray film personally reviewed by me-multilobar infiltrates Znppndrsqeko-qawnczkidq-lyiwkz simplex type undetected Suigovvpn-lfugy-rgxsrnljhbasbd with mucinous features Assessment: -, pneumonia-suspect gram-negative organism. -Lungs cancer-adenocarcinoma with mucinous features -Essential hypertension -Mild cognitive impairment -GERD -BPH -Primary osteoarthritis -Acute COPD exacerbation in an ex-smoker Disposition: Home Patient Condition at Discharge: Stable Plan - Discharge Summary Discharge Rx Participant: No New Discharge Prescriptions: New Fluconazole [Diflucan] 100 mg PO DAILY #7 tab predniSONE 0 mg PO DIRECTED #12 tab Cefuroxime [Ceftin] 250 mg PO BID 3 Days #6 tab Continue Ipratropium/Albuterol Sulfate [Duoneb 0.5 mg-3 mg/3 ml Soln] 3 ml INHALATION RT-QID PRN PRN Reason: Shortness Of Breath amLODIPine BESYLATE [Amlodipine Besylate] 5 mg PO DAILY Losartan [Cozaar] 50 mg PO DAILY Fluticasone Propion/Salmeterol [Wixela 250-50 Inhub] 1 puff INHALATION RT-BID Magnesium(Unknown Dose) 1 tab PO DAILY Discharge Medication List Ipratropium/Albuterol Sulfate [Duoneb 0.5 mg-3 mg/3 ml Soln] 3 ml INHALATION RT- QID PRN 02/21/14 [History] amLODIPine BESYLATE [Amlodipine Besylate] 5 mg PO DAILY 05/21/15 [History] Fluticasone Propion/Salmeterol [Wixela 250-50 Inhub] 1 puff INHALATION RT-BID 09/05/19 [History] Losartan [Cozaar] 50 mg PO DAILY 09/05/19 [History] Magnesium(Unknown Dose) 1 tab PO DAILY 09/05/19 [History] Cefuroxime [Ceftin] 250 mg PO BID 3 Days #6 tab 09/10/19 [Rx] Fluconazole [Diflucan] 100 mg PO DAILY #7 tab 09/10/19 [Rx] predniSONE 0 mg PO DIRECTED #12 tab 09/10/19 [Rx] Follow up Appointment(s)/Referral(s): Jose Guadalupe Jansen DO [Primary Care Provider] - 1-2 days (Please call your PCP to make hospital follow up) Quang Huerta MD [STAFF PHYSICIAN] - 1 Week (please call office to schedule hospital follow-up.) Patient Instructions/Handouts: COPD (Chronic Obstructive Pulmonary Disease) (DC), Community Acquired Pneumonia (DC) Discharge Disposition: HOME SELF-CARE
== END 2019-09-10 12:38 | disposition home or self-care (01) | DRG 178 ==
LOC: EC 04:22 → 6NMEDSUR 07:32
PROVIDERS: ADMIT Hospitalist; ATTEND Hospitalist
PROC: 0BDC8ZX Extraction of Right Upper Lung Lobe, Via Natural or Artificial Opening Endoscopic, Diagnostic (ICD-10-PCS; principal; 2019-09-09 12:25)
PROC: 0B9C8ZX Drainage of Right Upper Lung Lobe, Via Natural or Artificial Opening Endoscopic, Diagnostic (ICD-10-PCS; 2019-09-09 12:25)
DX: J15.6 Pneumonia due to other Gram-negative bacteria (principal); J44.1 Chronic obstructive pulmonary disease with (acute) exacerbation; E87.2 Acidosis; C34.11 Malignant neoplasm of upper lobe, right bronchus or lung; J44.0 Chronic obstructive pulmonary disease with (acute) lower respiratory infection; J98.11 Atelectasis; Z99.81 Dependence on supplemental oxygen; I10 Essential (primary) hypertension; G31.84 Mild cognitive impairment of uncertain or unknown etiology; R09.02 Hypoxemia; B00.9 Herpesviral infection, unspecified; K21.9 Gastro-esophageal reflux disease without esophagitis; N40.0 Benign prostatic hyperplasia without lower urinary tract symptoms; M19.91 Primary osteoarthritis, unspecified site; K57.90 Diverticulosis of intestine, part unspecified, without perforation or abscess without bleeding; J30.2 Other seasonal allergic rhinitis; Z79.51 Long term (current) use of inhaled steroids; Z79.899 Other long term (current) drug therapy; Z98.52 Vasectomy status; Z87.891 Personal history of nicotine dependence; Z86.59 Personal history of other mental and behavioral disorders; Z98.890 Other specified postprocedural states; Z88.8 Allergy status to other drugs, medicaments and biological substances
CPT/HCPCS: 31624; 31628; 36415; 71046; 71260; 80048; 80053; 83605; 83880; 84145; 84484; 85025; 85610; 85730; 87040; 87070; 87102; 87116; 87205; 87206; 87252; 87496; 87498; 87502; 87529; 87634; 87798; 88108; 88305; 88341; 88342; 89050; 93005; 94640; 94760; 96374; 99285

== ENCOUNTER → 2019-10-03 | Outpatient (CLI) | payer MEDICARE, BC ==
--- NOTE | 2019-10-06 11:18 | PE ---
EXAMINATION TYPE: PET CT fusion skull to thigh DATE OF EXAM: 10/03/2019 CLINICAL HISTORY: 84-year-old male initial staging right lung cancer, C3 4.11, diagnosed 09/09/2019. TECHNIQUE: Following the intravenous administration of 12.1 mCi of F-18 FDG, whole body images are performed from the skull base to the midthigh. Images are reviewed on the computer in the coronal, a xial, and sagittal planes. Reconstructed rotating images are created on independent workstation and reviewed on the computer. A localization and attenuation correction CT is performed in conjunction with the PET scan. Glucose level: 83 mg/dL COMPARISON: CT chest 09/05/2019, 01/29/2019 FINDINGS: PET: Some scattered [id number]-swdyfrjp oral cavity uptake likely physiologic. Otherwise, no suspicious uptak e within the neck. Extensive opacification throughout the anterior and posterior segments of the right upper lobe and th roughout the right middle lobe. There is heterogeneous variable moderate to intense uptake throughout this region ranging from max SUV 2.9 - 6.8. The areas of intense uptake are present in the right upper lobe region where the patient's spiculated mass was noted on 01/29/2019, max SUV 6.8, and also at the right midlung level where additional spicul ated nodules were seen previously, max SUV 3.3. The remaining consolidation that shows mild uptake likely relates to post obstructive and inflammator y changes. Also redemonstrated are multiple bilateral pulmonary nodules most of which have increased in size as compared to 01/29/2019, for example, in the right midlung measuring 1.5 cm versus 1.1 cm, previously, p osterior right lower lobe measuring 2.6 cm and measuring very small previously. A couple nodules at t he posterior right base are new from 01/29/2019. Max SUV on the right is 2.0. 1.8 cm posterior left basilar pulmonary nodule, 1.7 cm lingular pulmonary nodule. Max SUV on the left is 1.7. As compared to 09/05/2019, much of the patchy and confluent consolidation in the left upper lobe has r esolved. Average liver SUV 1.9. 4.9 cm centrally located cyst within the left kidney shows no FDG uptake. There is variable mild to moderate FDG uptake along left side of the colon compatible with physiologi c uptake. Otherwise, no suspicious uptake within the abdomen or pelvis. ATTENUATION CORRECTION CT: Prominent motion artifacts. Kyphotic positioning. Further limitation due to patient's arms over lying the chest and upper abdomen. Paranasal sinuses and mastoid air cells appear clear. Atherosclerotic calcifications of the bilateral carotid bifurcations. No cervical lymphadenopathy by CT size criteria. Heart normal size without pericardial effusion. Aortic valvular and three-vessel coronary artery calc ifications are present. Aorta normal caliber with moderate atherosclerotic arch calcifications and b ovine configuration to the aortic arch. No thoracic lymphadenopathy by CT size criteria. Extensive ri ght upper and right middle lobe lung findings along with trace right effusion and multiple pulmonary nodules as described above. COPD with background of moderate emphysema. Large hiatal hernia involving nearly the entire stomach within the lower thorax. Prominent artifacts overlying the upper abdomen due to patient's arms. Numerous gallstones fill the gallbladder lumen. Mo derate to severe atherosclerotic calcifications abdominal aorta and iliac arteries. Possible severe a therosclerotic narrowing at the origin of the right common iliac artery. No dilated small bowel, free fluid, or free air. Scattered mild stool. No mesenteric or retroperitoneal lymphadenopathy seen. Large prostate gland measuring 6.0 cm wide. Some retained IV contrast material is noted within the bl adder lumen. No abnormal fluid collection in the pelvis or pelvic lymphadenopathy seen. Bones: Degenerative changes at the hips. Degenerative changes throughout the spine. No osseous destru ctive process. Excessive upper thoracic kyphosis. IMPRESSION: 1. Extensive consolidation and opacity throughout the right upper and right middle lobes with areas o f variable mild to intense uptake. The most intense uptake is in the right upper lobe corresponding t o the spiculated mass seen back on 01/29/2019. Smaller areas of borderline moderate uptake in the right midlung correspond to nodules seen at that time. The remaining consolidation shows mild uptake, like ly postobstructive pneumonitis/inflammation. 2. Additional bilateral pulmonary nodules measuring up to 2.6 cm on the right and 1.8 cm on the left show mild uptake but are suspicious given progressive gradual enlargement. No other metastatic diseas e is evident. 3. Trace right pleural effusion. Previous left upper lobe pneumonia seen on 09/05/2019 has resolved. 4. COPD with moderate emphysema, CAD, large hiatal hernia, cholelithiasis, and prostatomegaly (6.0 cm wide). Possible severe atherosclerotic narrowing origin of the right common iliac artery.
== END | disposition home or self-care (01) ==
LOC: RADPETMAIN 13:15
PROVIDERS: ATTEND Internal Medicine Hematology & Oncology
DX: R91.1 Solitary pulmonary nodule (principal); J90 Pleural effusion, not elsewhere classified; C34.11 Malignant neoplasm of upper lobe, right bronchus or lung; J43.9 Emphysema, unspecified; I25.10 Atherosclerotic heart disease of native coronary artery without angina pectoris; K44.9 Diaphragmatic hernia without obstruction or gangrene; K80.20 Calculus of gallbladder without cholecystitis without obstruction; N40.0 Benign prostatic hyperplasia without lower urinary tract symptoms; Z87.01 Personal history of pneumonia (recurrent)
CPT/HCPCS: 78815; A9552

== ENCOUNTER 2020-02-25 06:48 | Inpatient (IN) | payer MEDICARE, BC ==
[2020-02-25] MEDS ORDERED: IPRATROPIUM-ALBUTEROL 3 ML NEB INHALATION STA (07:03)
--- NOTE | 2020-02-25 07:21 | ED ---
Arrhythmia/Palpitations HPI - General Chief Complaint: Arrhythmia/Palpitations Stated Complaint: Rapid Heart Rate Time Seen by Provider: 02/25/20 06:52 Source: patient, RN notes reviewed Mode of arrival: ambulatory Limitations: no limitations - History of Present Illness Initial Comments: 84-year-old male presents emergency Department chief complaint of elevated heart rate. Patient states he since August she's had issues with his heart rate which is elevates after exercise. Patient states that he normally complaints down and it goes away. Patient states he was checked his pulse ox and heart rate this morning and was elevated states it was not resolving. Patient denies any chest pain or any shortness of breath at time. Patient states he does not really have any complaints at this time he feels that his heart rates improving. Patient does admit that he has history of lung cancer he denies any leg pain, leg swelling no chest pain or palpitations at this point. - Related Data Home Medications Medication Instructions Recorded Confirmed Ipratropium/Albuterol Sulfate 3 ml INHALATION RT-QID PRN 02/21/14 02/25/20 [Duoneb 0.5 mg-3 mg/3 ml Soln] amLODIPine BESYLATE [Amlodipine 5 mg PO DAILY 05/21/15 02/25/20 Besylate] Fluticasone Propion/Salmeterol 1 puff INHALATION RT-BID 09/05/19 02/25/20 [Wixela 250-50 Inhub] Losartan [Cozaar] 50 mg PO DAILY 09/05/19 02/25/20 Ferrous Sulfate [Feosol] 325 mg PO DAILY 02/25/20 02/25/20 Magnesium Gluconate [Magonate] 500 mg PO DAILY 02/25/20 02/25/20 Multivitamins, Thera [Multivitamin 1 tab PO DAILY 02/25/20 02/25/20 (formulary)] Allergies Allergy/AdvReac Type Severity Reaction Status Date / Time doxazosin AdvReac Rapid Verified 02/25/20 08:11 Heart Rate tamsulosin [From Flomax] AdvReac Rapid Verified 02/25/20 08:11 Heart Rate Review of Systems ROS Statement: Those systems with pertinent positive or pertinent negative responses have been documented in the HPI. ROS Other: All systems not noted in ROS Statement are negative. Past Medical History Past Medical History: COPD, Hypertension, Memory Impairment, Prostate Disorder Additional Past Medical History / Comment(s): intubated due to respiratory distress 2004 History of Any Multi-Drug Resistant Organisms: None Reported Past Surgical History: Tonsillectomy Additional Past Surgical History / Comment(s): vasectomy Past Anesthesia/Blood Transfusion Reactions: No Reported Reaction Past Psychological History: Anxiety Smoking Status: Never smoker Past Alcohol Use History: None Reported Past Drug Use History: None Reported General Exam Limitations: no limitations General appearance: alert, in no apparent distress Head exam: Present: atraumatic, normocephalic, normal inspection Eye exam: Present: normal appearance, PERRL, EOMI. Absent: scleral icterus, conjunctival injection, periorbital swelling ENT exam: Present: normal exam, normal oropharynx, mucous membranes moist Neck exam: Present: normal inspection. Absent: tenderness, meningismus, lymphadenopathy Respiratory exam: Present: rales, rhonchi. Absent: normal lung sounds bilaterally, respiratory distress, wheezes, stridor Cardiovascular Exam: Present: normal rhythm, tachycardia, normal heart sounds. Absent: systolic murmur, diastolic murmur, rubs, gallop, clicks Neurological exam: Present: alert, oriented X3 Skin exam: Present: warm, dry, intact, normal color. Absent: rash Course Vital Signs 02/25/20 02/25/20 02/25/20 06:59 07:14 07:25 Temperature 98 F Pulse Rate 100 93 92 Respiratory 18 Rate Blood Pressure 167/97 O2 Sat by Pulse 98 Oximetry 02/25/20 07:30 Temperature Pulse Rate 88 Respiratory 18 Rate Blood Pressure 123/68 O2 Sat by Pulse 94 L Oximetry Medical Decision Making - Medical Decision Making X-rays shows evidence of pneumonia with known cancer. Patient's will be admitted for IV antibiotics, pulmonary and oncology consult. - Lab Data Result diagrams: 02/25/20 07:06 02/25/20 07:06 Lab Results 02/25/20 02/25/20 02/25/20 Range/Units 07:06 07:06 07:06 WBC 8.1 (3.8-10.6) k/uL RBC 3.67 L (4.30-5.90) m/uL Hgb 11.7 L (13.0-17.5) gm/dL Hct 34.6 L (39.0-53.0) % MCV 94.3 (80.0-100.0) fL MCH 31.8 (25.0-35.0) pg MCHC 33.7 (31.0-37.0) g/dL RDW 12.6 (11.5-15.5) % Plt Count 376 (150-450) k/uL Neutrophils % 89 % Lymphocytes % 3 % Monocytes % 7 % Eosinophils % 0 % Basophils % 0 % Neutrophils # 7.1 (1.3-7.7) k/uL Lymphocytes # 0.2 L (1.0-4.8) k/uL Monocytes # 0.6 (0-1.0) k/uL Eosinophils # 0.0 (0-0.7) k/uL Basophils # 0.0 (0-0.2) k/uL PT 10.7 (9.0-12.0) sec INR 1.0 (<1.2) APTT 27.4 (22.0-30.0) sec Sodium 123 L (137-145) mmol/L Potassium 4.4 (3.5-5.1) mmol/L Chloride 89 L (98-107) mmol/L Carbon Dioxide 25 (22-30) mmol/L Anion Gap 9 mmol/L BUN 12 (9-20) mg/dL Creatinine 0.58 L (0.66-1.25) mg/dL Est GFR (CKD-EPI)AfAm >90 (>60 ml/min/1.73 sqM) Est GFR (CKD-EPI)NonAf >90 (>60 ml/min/1.73 sqM) Glucose 161 H (74-99) mg/dL Calcium 8.4 (8.4-10.2) mg/dL Magnesium 1.8 (1.6-2.3) mg/dL Total Bilirubin 0.6 (0.2-1.3) mg/dL AST 23 (17-59) U/L ALT 13 (4-49) U/L Alkaline Phosphatase 88 (38-126) U/L Troponin I (0.000-0.034) ng/mL NT-Pro-B Natriuret Pep pg/mL Total Protein 6.4 (6.3-8.2) g/dL Albumin 3.2 L (3.5-5.0) g/dL 02/25/20 02/25/20 Range/Units 07:06 07:06 WBC (3.8-10.6) k/uL RBC (4.30-5.90) m/uL Hgb (13.0-17.5) gm/dL Hct (39.0-53.0) % MCV (80.0-100.0) fL MCH (25.0-35.0) pg MCHC (31.0-37.0) g/dL RDW (11.5-15.5) % Plt Count (150-450) k/uL Neutrophils % % Lymphocytes % % Monocytes % % Eosinophils % % Basophils % % Neutrophils # (1.3-7.7) k/uL Lymphocytes # (1.0-4.8) k/uL Monocytes # (0-1.0) k/uL Eosinophils # (0-0.7) k/uL Basophils # (0-0.2) k/uL PT (9.0-12.0) sec INR (<1.2) APTT (22.0-30.0) sec Sodium (137-145) mmol/L Potassium (3.5-5.1) mmol/L Chloride (98-107) mmol/L Carbon Dioxide (22-30) mmol/L Anion Gap mmol/L BUN (9-20) mg/dL Creatinine (0.66-1.25) mg/dL Est GFR (CKD-EPI)AfAm (>60 ml/min/1.73 sqM) Est GFR (CKD-EPI)NonAf (>60 ml/min/1.73 sqM) Glucose (74-99) mg/dL Calcium (8.4-10.2) mg/dL Magnesium (1.6-2.3) mg/dL Total Bilirubin (0.2-1.3) mg/dL AST (17-59) U/L ALT (4-49) U/L Alkaline Phosphatase (38-126) U/L Troponin I <0.012 (0.000-0.034) ng/mL NT-Pro-B Natriuret Pep 259 pg/mL Total Protein (6.3-8.2) g/dL Albumin (3.5-5.0) g/dL - EKG Data -: EKG Interpreted by Me EKG Comments: EKG performed at 6:56 normal sinus rhythm rate of 100 NE 198 QRS 90 QT/QTC 306/394 Disposition Clinical Impression: Pneumonia, Lung cancer, Palpitations Disposition: ADMITTED IP TO THIS HOSP Referrals: Jose Guadalupe Jansen DO [Primary Care Provider] - 1-2 days
[2020-02-25 07:28] LABS: Basophils % (A) 0 %; Eosinophils % (A) 0 %; HCT 34.6 % (39.0-53.0); HGB 11.7 gm/dL (13.0-17.5); Lymphocytes # (A) 0.2 k/uL (1.0-4.8); Lymphocytes % (A) 3 %; MCH 31.8 pg (25.0-35.0); MCHC 33.7 g/dL (31.0-37.0); MCV 94.3 fL (80.0-100.0); Mean Platelet Volume 6.6; Monocytes # (A) 0.6 k/uL (0-1.0); Monocytes % (A) 7 %; Neutrophils # (A) 7.1 k/uL (1.3-7.7); Neutrophils % (A) 89 %; Platelet Count 376 k/uL (150-450); RBC 3.67 m/uL (4.30-5.90); RDW 12.6 % (11.5-15.5); WBC 8.1 k/uL (3.8-10.6)
[2020-02-25 07:33] LABS: Partial Thromboplastin Time 27.4 sec (22.0-30.0); Prothrombin Time 10.7 sec (9.0-12.0)
[2020-02-25 07:44] LABS: ALT 13 U/L (4-49); AST 23 U/L (17-59); African American GFR (CKD) >90 (>60 ml/min/1.73 sqM); Albumin 3.2 g/dL (3.5-5.0); Alkaline Phosphatase 88 U/L (38-126); Anion Gap 9 mmol/L; Blood Urea Nitrogen 12 mg/dL (9-20); Calcium 8.4 mg/dL (8.4-10.2); Carbon Dioxide 25 mmol/L (22-30); Chloride 89 mmol/L (98-107); Glucose 161 mg/dL (74-99); Magnesium 1.8 mg/dL (1.6-2.3); Non-African American GFR(CKD) >90 (>60 ml/min/1.73 sqM); Potassium 4.4 mmol/L (3.5-5.1); Sodium 123 mmol/L (137-145); Total Bilirubin 0.6 mg/dL (0.2-1.3); Total Protein 6.4 g/dL (6.3-8.2)
[2020-02-25] MEDS ORDERED: AZITHROMYCIN 500 MG in SODIUM CHLORIDE 0.9% 250 ML IVPB STA ×2 (08:45→08:50)
[2020-02-25] MEDS ORDERED: cefTRIAXone IN SWFI 1,000 MG/10 ML SYRINGE IVP STA (08:45)
[2020-02-25] MEDS ORDERED: PNEUMONIA PROTOCOL UTILIZED 1 EACH MISC PO PRN (08:50)
--- NOTE | 2020-02-25 09:02 | XR ---
EXAMINATION TYPE: XR chest 2V DATE OF EXAM: 02/25/2020 COMPARISON: 09/05/2019 HISTORY: Shortness of breath TECHNIQUE: Frontal and lateral views of the chest are obtained. FINDINGS: Scattered senescent parenchymal changes noted. Hyperinflation compatible with COPD. Masslike areas of infiltrate throughout the right lung. Additional patchy density left medial lung ba se. Heart size is stable. Mediastinal structures are stable and grossly unremarkable. No evidence for hilar prominence. Degenerative changes dorsal spine. IMPRESSION: 1. Masslike areas of infiltrate throughout the right lung. Additional patchy density left medial lung base.
[2020-02-25] MEDS: SODIUM CHLORIDE 0.9% 1,000 ML IV SCH ×2 (09:24→23:16)
[2020-02-25] MEDS: IPRATROPIUM-ALBUTEROL 3 ML NEB INHALATION SCH ×3 (10:58→19:36)
[2020-02-25] MEDS ORDERED: IPRATROPIUM-ALBUTEROL 3 ML NEB INHALATION PRN (12:11)
[2020-02-25] MEDS ORDERED: ONDANSETRON 4 MG/2 ML VIAL IVP PRN (12:13)
[2020-02-25] MEDS ORDERED: NALOXONE 0.4 MG/ML 1 ML VIAL IV PRN (12:13)
[2020-02-25] MEDS ORDERED: MELATONIN 3 MG TABLET PO PRN (12:13)
[2020-02-25] MEDS ORDERED: MAGNESIUM HYDROXIDE 2,400 MG/10 ML CUP PO PRN (12:13)
[2020-02-25] MEDS ORDERED: LACTULOSE 20 GM/30 ML CUP PO PRN (12:13)
[2020-02-25] MEDS ORDERED: NA PHOS,M-B/NA PHOS,DI-BA 133 ML ENEMA RECTAL PRN (12:13)
[2020-02-25] MEDS ORDERED: CALCIUM CARBONATE 500 MG CHEWABLE PO PRN (12:13)
[2020-02-25] MEDS ORDERED: ACETAMINOPHEN TAB 325 MG TAB PO PRN (12:13)
[2020-02-25] MEDS ORDERED: ALPRAZolam 0.25 MG TAB PO PRN (12:13)
[2020-02-25] MEDS ORDERED: MAG HYDROX/AL HYDROX/SIMETH 30 ML CUP PO PRN (12:13)
[2020-02-25] MEDS: guaiFENesin 600 MG TABLET.ER PO SCH ×2 (13:51→20:38)
[2020-02-25] MEDS: ENOXAPARIN 40 MG/0.4 ML SYRINGE SQ SCH (13:51)
--- NOTE | 2020-02-25 14:02 | P.CNPUL ---
History of Present Illness Consult date: 02/25/20 Requesting physician: Dez Sosa Reason for consult: abnormal CXR/CT Chief complaint: Palpitations, rapid heart rate History of present illness: This is a very pleasant 84-year-old gentleman who follows with Dr. Jansen as his primary care provider. He has a history of hypertension, hearing disorder, prostate disorder, anxiety. He also has a history of tonic tobacco dependence however quit in 2000. He follows with Dr. Huff in our office for COPD. 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 PET scan revealed extensive consolidation and opacity throughout the right upper and right middle lobes with areas of variable mild to intense uptake. The most intense uptake is in the right upper lobe corresponding to the spiculated mass seen back on 01/29/2019. Smaller areas of borderline moderate uptake in the right midlung corresponding to the nodule seen at that time. Additional bilateral pulmonary nodules measuring up to 2.6 cm on the right and 1.8 cm on the left show mild uptake that are suspicious for pr ogressive gradual enlargement. No other metastatic disease is evident. He has undergone 10 radiation treatments and unfortunately had missed appointments with Dr. Choe and has not been initiated on any chemotherapy or other treatments at this time. He had recently been back in the oncology office and states he does have appointments scheduled. He has somewhat of a poor historian. He presented to the emergency room this morning with complaints of palpitations and elevated heart rate. He states usually it subsides after a few minutes of rest but was not slowing down in the presented for the same. He denied any chest pain, no worsening shortness of breath, no cough or congestion. No hemoptysis. No dizziness, lightheadedness. He states he was short of breath while his heart rate was high but is comfortable now at rest. He is currently in sinus rhythm. White count 8.1. Hemoglobin 11.7. Sodium 123. Potassium 4.4. Creatinine 0.58. Troponin negative times one. ProBNP 259. Chest x-ray shows masslike areas of infiltrate throughout the right lung. Additional patchy density in the left medial lung base. His 0.9 normal sinus rate 75 ML's per hour. He's been initiated on ceftriaxone. He is on DuoNeb inhalations, Pulmicort and Perforomist inhalations. Lovenox for DVT prophylaxis. CT angiogram pending. CoVID 19 screen pending. Review of Systems REVIEW OF SYSTEMS: CONSTITUTIONAL: Denies any recent significant weight loss or weight gain. EYES: Denies change in vision. EARS, NOSE, MOUTH, THROAT: Denies headaches, denies sore throat. CARDIOVASCULAR: Positive for palpitations, no chest pain or syncopal episodes. RESPIRATORY: Positive for shortness of breath, cough, congestion no hemoptysis. GASTROINTESTINAL: Denies change in appetite, denies abdominal pain GENITOURINARY: Denies hematuria, denies infections. MUSKULOSKELETAL: Denies pain, denies swelling. INTEGUMENTARY: Denies rash, denies eczema. NEUROLOGICAL: Denies recent memory loss, no recent seizure activity. PSYCHIATRIC: Denies anxiety, denies depression. HEMATOLOGIC/LYMPHATIC: Denies anemia, denies enlarged lymph nodes. Past Medical History Past Medical History: COPD, GERD/Reflux, Hypertension, Memory Impairment, Pneumonia, Prostate Disorder, Renal Disease Additional Past Medical History / Comment(s): 08/2019 R lung cancer with radiation treatments, past home oxygen use, traceobronchitis, intubated due to respiratory distress 2003, BPH, arthritis in multiple joints-L knee "gives out" at times, bilateral tinnitis, seasonal allergies, CKD per past medical record but pt denies History of Any Multi-Drug Resistant Organisms: None Reported Past Surgical History: Orthopedic Surgery, Tonsillectomy Additional Past Surgical History / Comment(s): 08/2019 bronchoscopy/biopsies, R achilles tendon surgery, colonoscopy, bilateral cataract removals/lens implants, vasectomy Past Anesthesia/Blood Transfusion Reactions: No Reported Reaction Smoking Status: Former smoker - Past Family History Father Additional Family Medical History / Comment(s): Father was an alcoholic Mother Family Medical History: No Reported History Additional Family Medical History / Comment(s): Mother lived to be 87yrs old. Medications and Allergies Home Medications Medication Instructions Recorded Confirmed Type Ipratropium/Albuterol Sulfate 3 ml INHALATION RT-QID PRN 02/21/14 02/25/20 History [Duoneb 0.5 mg-3 mg/3 ml Soln] amLODIPine BESYLATE [Amlodipine 5 mg PO DAILY 05/21/15 02/25/20 History Besylate] Fluticasone Propion/Salmeterol 1 puff INHALATION RT-BID 09/05/19 02/25/20 History [Wixela 250-50 Inhub] Losartan [Cozaar] 50 mg PO DAILY 09/05/19 02/25/20 History Ferrous Sulfate [Feosol] 325 mg PO DAILY 02/25/20 02/25/20 History Magnesium Gluconate [Magonate] 500 mg PO DAILY 02/25/20 02/25/20 History Multivitamins, Thera [Multivitamin 1 tab PO DAILY 02/25/20 02/25/20 History (formulary)] Allergies Allergy/AdvReac Type Severity Reaction Status Date / Time doxazosin AdvReac Rapid Verified 02/25/20 08:11 Heart Rate tamsulosin [From Flomax] AdvReac Rapid Verified 02/25/20 08:11 Heart Rate Physical Exam Vitals: Vital Signs Temp Pulse Pulse Resp BP BP Pulse Ox 02/25/20 12:12 97.6 F 80 17 146/73 92 L 02/25/20 11:37 97.6 F 82 18 123/67 97 02/25/20 11:10 91 02/25/20 10:58 92 02/25/20 10:00 84 20 122/82 97 02/25/20 07:30 88 18 123/68 94 L 02/25/20 07:25 92 02/25/20 07:14 93 02/25/20 06:59 98 F 100 18 167/97 98 Intake and Output 02/24/20 02/25/20 02/25/20 22:59 06:59 14:59 Other: Weight 68.039 kg 68.039 kg GENERAL EXAM: Alert, pleasant 84-year-old gentleman, on 2 L nasal cannula, comfortable in no apparent distress. HEAD: Normocephalic. EYES: Normal reaction of pupils, equal size. NOSE: Clear with pink turbinates. THROAT: No erythema or exudates. NECK: No masses, no JVD. CHEST: No chest wall deformity. LUNGS: Equal air entry with bilateral scattered rhonchi right greater than left. CVS: S1 and S2 normal with no audible murmur, regular rhythm. ABDOMEN: No hepatosplenomegaly, normal bowel sounds, no guarding or rigidity. SPINE: No scoliosis or deformity SKIN: No rashes CENTRAL NERVOUS SYSTEM: No focal deficits, tone is normal in all 4 extremities. EXTREMITIES: There is no peripheral edema. No clubbing, no cyanosis. Peripheral pulses are intact. Results - Laboratory Findings CBC and BMP: 02/25/20 07:06 02/25/20 07:06 PT/INR, D-dimer PT 10.7 sec (9.0-12.0) 02/25/20 07:06 INR 1.0 (<1.2) 02/25/20 07:06 Abnormal lab findings: Abnormal Labs 02/25/20 02/25/20 07:06 07:06 RBC 3.67 L Hgb 11.7 L Hct 34.6 L Lymphocytes # 0.2 L Sodium 123 L Chloride 89 L Creatinine 0.58 L Glucose 161 H Albumin 3.2 L - Diagnostic Findings Chest x-ray: image reviewed Assessment and Plan Assessment: 1 Palpitations of unclear etiology, currently in normal sinus rhythm with occasional PACs 2 Adenocarcinoma of the lung, diagnosed in August 2019, PET scan revealed extensive consolidation opacity throughout the right upper and right middle lobes with areas of variable mild to intense uptake. This intense uptake in the right upper lobe corresponding to the spiculated mass seen back on 01/29/2019. Smaller areas of underlying moderate uptake in the right midlung corresponding nodule seen at that time. Additional bilateral pulmonary nodules measuring up to 2.6 cm on the right and 1.8 cm on the left show mild uptake but her suspicious given progressive gradual enlargement. No other metastatic disease was evident. Status post radiation treatment thus far. 3 Former smoker quit in 2000 4 Hyponatremia with current sodium 123 5 Hypertension 6 Hearing disorder 7 History of anxiety 8 Poor historian 9 Benign prostatic hyperplasia Plan: The patient was seen and evaluated by Dr. Huff Chest x-ray and labs reviewed CT angiogram pending Echocardiogram pending CoVID 19 screen pending Continue bronchodilators and empiric antibiotics We will continue to follow and make further recommendations based on his clinical status I, the cosigning physician, performed a history & physical examination of the patient. Lungs sounds with bilateral scattered rhonchi right greater than left. Maintaining good O2 saturations in the 90s on 2 L/m per nasal cannula. I discussed the assessment and plan of care with my nurse practitioner, Zuleyma Crews. I attest to the above consultation as dictated by her. Time with Patient: Greater than 30
[2020-02-25] MEDS: BUDESONIDE 0.5 MG/2 ML NEBU INHALATION SCH ×2 (14:55→19:36)
[2020-02-25] MEDS: FORMOTEROL FUMARATE 20 MCG/2 ML NEBU INHALATION SCH ×2 (14:56→19:36)
--- NOTE | 2020-02-25 16:28 | CT ---
EXAMINATION TYPE: CT angio chest DATE OF EXAM: 02/25/2020 COMPARISON: CT chest 09/05/2019, chest x-ray 02/25/2020, PET/CT 10/03/2019 HISTORY: Dyspnea on exertion. History of lung cancer. CT DLP: 442.7 mGycm Automated exposure control for dose reduction was used. CONTRAST: CTA scan of the thorax is performed with IV Contrast, patient injected with 100 mL of Isovue 370, pul monary embolism protocol. MIP images are created and reviewed. 3D reconstructed images are created on an independent workstation and reviewed. FINDINGS: LUNGS: The abnormal density within the right lung is extensive, left lower lobe pulmonary nodule, lef t upper lobe pulmonary nodule are present, new pulmonary nodules present within the superior segment left lower lobe measuring 8 mm. The lingular nodule now measures 2.2 cm and is increased from prior, left lower lobe pulmonary nodule now measures 2.8 cm increased from [address]. The density wi thin the right lung is extensive and more confluent as compared to prior CT, there is some associated nodules present, lungs show emphysematous change AORTA: No additional significant abnormality is seen. MEDIASTINUM: There is satisfactory enhancement of the pulmonary artery and its branches, there is no CT evidence for pulmonary embolism. There are no greater than 1 cm hilar or mediastinal lymph nodes. No pericardial effusion is seen. 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 OTHER: No additional significant abnormality is seen. IMPRESSION: NO PULMONARY EMBOLISM. PROGRESSION OF PATIENT'S LUNG CARCINOMA, METASTATIC DISEASE.
--- NOTE | 2020-02-25 19:45 | P.HPIM ---
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 Machado. Patient has long-standing history of COPD. Had been on oxygen. Chronic stable medical conditions include hypertension, some cognitive impairment, GERD, BPH, osteoarthritis. Was admitted in August of this year with pneumonia. 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 Patient apparently did get some radiation treatment by Dr. Loyd Roldan. It's unclear from the patient's history as to why he is not able to follow with oncologist. Patient been having increasing hot off and on for last 2 months. Intermittent. Became more persistent Patient did bring up phlegm that is clear. Increase in shortness of breath especially with activity. Appetite is okay. A bit tired rundown. 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 Lives alone. Family history: Reviewed, noncontributory to presentation Physical examination: VITAL SIGNS: 98, 100, 18, 1 6797, 98% on 2 L GENERAL: BMI 22.8, propped up in bed, bit tired EYES: Pupils equal. Conjunctiva normal. HEENT: External appearance of nose and ears normal, oral cavity grossly normal. NECK: JVD not raised; masses not palpable. HEART: First and second heart sounds are normal; no edema. LUNGS: Respiratory rate increased, decreased breath sounds prolonged expiration some wheezing. ABDOMEN: Soft, nontender, liver spleen not palpable, no masses palpable. PSYCH: Alert and oriented x3; mood and affect normal. MUSCULAR skeletal: Evidence of OA NEUROLOGICAL: Cranial nerves grossly intact; no facial asymmetry, power and sensation grossly intact. LYMPHATICS: No lymph nodes palpable in the axilla and neck INVESTIGATIONS, reviewed in the clinical context: White count 8.1 hemoglobin 11.7 platelets 376 potassium 4.4 sodium 123 creatinine 0.58 serum osmolality 258 Troponin I 0.012 proBNP 259 EKG tracing personally reviewed by me-normal sinus rhythm, Chest x-ray film personally reviewed by me-she especially right-sided mass with infiltrates and mediastinum pulled the right Chest CTA-negative for PE. Abnormal large density in the right lung. Multiple nodules in both the sides. 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 Patient has received radiation treatment. Unclear about his follow-up with oncology. -Essential hypertension -Mild cognitive impairment -GERD -BPH -Primary osteoarthritis -Acute COPD exacerbation in an ex-smoker Plan: Patient put on bronchodilators, long-acting bronchodilators and inhaled steroids. IV Ceftriaxone. Sputum will be sent off for Gram stain and culture. Consultation made to pulmonary, radiation oncology and oncology. Care was discussed with the patient question also. Mucinex also added. Lovenox for DVT prophylaxis. Past Medical History Past Medical History: COPD, Hypertension, Memory Impairment, Prostate Disorder Additional Past Medical History / Comment(s): intubated due to respiratory distress 2004 History of Any Multi-Drug Resistant Organisms: None Reported Past Surgical History: Tonsillectomy Additional Past Surgical History / Comment(s): vasectomy Past Anesthesia/Blood Transfusion Reactions: No Reported Reaction Past Psychological History: Anxiety Smoking Status: Never smoker Past Alcohol Use History: None Reported Past Drug Use History: None Reported - Past Family History Father Additional Family Medical History / Comment(s): Father was an alcoholic Mother Family Medical History: No Reported History Additional Family Medical History / Comment(s): Mother lived to be 87yrs old. Medications and Allergies Home Medications Medication Instructions Recorded Confirmed Type Ipratropium/Albuterol Sulfate 3 ml INHALATION RT-QID PRN 02/21/14 02/25/20 History [Duoneb 0.5 mg-3 mg/3 ml Soln] amLODIPine BESYLATE [Amlodipine 5 mg PO DAILY 05/21/15 02/25/20 History Besylate] Fluticasone Propion/Salmeterol 1 puff INHALATION RT-BID 09/05/19 02/25/20 History [Wixela 250-50 Inhub] Losartan [Cozaar] 50 mg PO DAILY 09/05/19 02/25/20 History Ferrous Sulfate [Feosol] 325 mg PO DAILY 02/25/20 02/25/20 History Magnesium Gluconate [Magonate] 500 mg PO DAILY 02/25/20 02/25/20 History Multivitamins, Thera [Multivitamin 1 tab PO DAILY 02/25/20 02/25/20 History (formulary)] Allergies Allergy/AdvReac Type Severity Reaction Status Date / Time doxazosin AdvReac Rapid Verified 02/25/20 08:11 Heart Rate tamsulosin [From Flomax] AdvReac Rapid Verified 02/25/20 08:11 Heart Rate Physical Exam Vitals: Vital Signs Temp Pulse Resp BP Pulse Ox 02/25/20 10:58 92 02/25/20 10:00 84 20 122/82 97 02/25/20 07:30 88 18 123/68 94 L 02/25/20 07:25 92 02/25/20 07:14 93 02/25/20 06:59 98 F 100 18 167/97 98 Intake and Output 02/24/20 02/25/20 02/25/20 22:59 06:59 14:59 Other: Weight 68.039 kg Results CBC & Chem 7: 02/25/20 07:06 02/25/20 07:06 Labs: Abnormal Lab Results - Last 24 Hours (Table) 02/25/20 02/25/20 Range/Units 07:06 07:06 RBC 3.67 L (4.30-5.90) m/uL Hgb 11.7 L (13.0-17.5) gm/dL Hct 34.6 L (39.0-53.0) % Lymphocytes # 0.2 L (1.0-4.8) k/uL Sodium 123 L (137-145) mmol/L Chloride 89 L (98-107) mmol/L Creatinine 0.58 L (0.66-1.25) mg/dL Glucose 161 H (74-99) mg/dL Albumin 3.2 L (3.5-5.0) g/dL
--- NOTE | 2020-02-25 22:07 | CONS ---
CONSULTATION DATE OF DICTATION: 02/25/2020 REASON FOR CONSULTATION: Anemia and dark-colored stool. HISTORY OF PRESENT ILLNESS: The patient is an 84-year-old pleasant white male with longstanding history of COPD, hypertension, gastroesophageal reflux disease and degenerative joint disease who was admitted to the hospital because of progressive shortness of breath for the last few weeks' duration. The patient states that he was diagnosed with lung cancer in August of this year and is currently undergoing radiation therapy. He has seen Dr. Choe on outpatient basis and is scheduled to undergo chemotherapy, but he is unclear about the details at this time. He thought he is having some altered bowel movements. He noted that he has some vision problems, but he thinks he had some dark-colored stools, but no melena. He denies any abdominal pain. He reports no nausea, vomiting. He has been taking iron supplements recently. At the time of admission to the hospital his hemoglobin was 11 g/dL and hence we are consulted in regard to this issue. The patient denies any recent NSAID use. No prior history of peptic ulcer disease. PAST MEDICAL HISTORY: Hypertension, mild dementia, lung cancer diagnosed in August of this year, as mentioned above, GERD, BPH, degenerative joint disease. SOCIAL HISTORY: Remote history of smoking. No alcohol use. PAST SURGICAL HISTORY: Tonsillectomy, vasectomy. FAMILY HISTORY: Unremarkable. MEDICATIONS: Medications at home include DuoNeb, amlodipine, Wixela, Cozaar, iron sulfate, multivitamin, magnesium gluconate. ALLERGIES: DOXAZOSIN and FLOMAX. REVIEW OF SYSTEMS: CARDIOPULMONARY: No chest pain. He does complain of some shortness of breath. GENITOURINARY: No dysuria or hematuria. MUSCULOSKELETAL: Unremarkable. SKIN: Unremarkable. ENDOCRINE: Unremarkable. PSYCHIATRIC: Unremarkable. ONCOLOGY: As mentioned above. ENT/VISION: Unremarkable. CONSTITUTIONAL: No recent weight loss. No fever, chills, night sweats. PHYSICAL EXAMINATION: He appears comfortable. No apparent distress. VITAL SIGNS: Stable. Blood pressure is 144/86, pulse rate 91, temperature 98.6. HEENT examination unremarkable. Conjunctivae pink. Sclerae anicteric. Oral cavity no lesions. NECK: No JVD or lymph node enlargement. CHEST: Clear to auscultation. HEART: Regular rate and rhythm. ABDOMEN: Soft. It was non-tender, non-distended. Bowel sounds are positive. No organomegaly. EXTREMITIES: No pedal edema. NEUROLOGIC: Alert and oriented x3. No focal deficits. LABS: WBC 8.1, hemoglobin 11.7, MCV normal, platelets normal. Sodium is 123, potassium 4.4, BUN 12, creatinine 0.58. ALT, AST, T-bilirubin, alkaline phosphatase are normal. Urine osmolality is 249. IMPRESSION: 1. Anemia and dark-colored stools, but clinically no evidence of active bleeding. He is hemodynamically stable. At this time it is unclear whether he is having melena or some dark stools because of iron supplements. He denies any associated abdominal pain. No nausea, vomiting. 2. Lung cancer diagnosed August of this year, status post radiation therapy. Seeing Dr. Choe on an outpatient basis. 3. Shortness of breath and history of chronic obstructive pulmonary disease. 4. Hyponatremia. RECOMMENDATIONS: 1. Will request stool for occult blood. 2. Monitor CBC on a daily basis. 3. No plans for any endoscopic intervention at the present time. 4. Continue with broad-spectrum antibiotics. 5. Will follow with you closely. Thank you for this consultation. MMODL / IJN: [id number] /
[2020-02-26] MEDS: IPRATROPIUM-ALBUTEROL 3 ML NEB INHALATION SCH ×4 (07:16→19:08)
[2020-02-26] MEDS: FORMOTEROL FUMARATE 20 MCG/2 ML NEBU INHALATION SCH ×2 (07:16→19:08)
[2020-02-26] MEDS: BUDESONIDE 0.5 MG/2 ML NEBU INHALATION SCH ×2 (07:17→19:08)
--- NOTE | 2020-02-26 07:59 | XR ---
EXAMINATION TYPE: XR chest 2V DATE OF EXAM: 02/26/2020 COMPARISON: 02/25/2020 HISTORY: 84-year-old male pneumonia TECHNIQUE: PA and lateral views FINDINGS: Right heart margin obscured by adjacent pleural parenchymal opacity. Suspect underlying mass right mi d and lower lung. Extensive consolidation throughout the right hemithorax, similar to slightly worsen ed from 02/25/2020. Possible nodularity along the left hilum and left heart margin. Hyperinflation sugg esting emphysema. IMPRESSION: 1. Underlying mass and extensive airspace disease/pneumonia throughout the right lung is similar to s lightly worsened from 02/25/2020. Possible nodularity at the left hilum and left heart margin. 2. COPD with additional nodules inferior lingula and left lower lobe.
[2020-02-26] MEDS: FERROUS SULFATE 325 MG TAB PO SCH (09:01)
[2020-02-26] MEDS: ENOXAPARIN 40 MG/0.4 ML SYRINGE SQ SCH (09:02)
[2020-02-26] MEDS: guaiFENesin 600 MG TABLET.ER PO SCH ×2 (09:02→20:05)
[2020-02-26] MEDS: MULTIVITAMINS, THERA 1 EACH TAB PO SCH (09:02)
[2020-02-26] MEDS: amLODIPine 5 MG TAB PO SCH (09:02)
[2020-02-26] MEDS: LOSARTAN 50 MG TAB PO SCH (09:02)
[2020-02-26] MEDS: MAGNESIUM OXIDE 400 MG TAB PO SCH (09:02)
[2020-02-26 10:45] LABS: African American GFR (CKD) >90 (>60 ml/min/1.73 sqM); Anion Gap 10 mmol/L; Blood Urea Nitrogen 7 mg/dL (9-20); Calcium 8.6 mg/dL (8.4-10.2); Carbon Dioxide 23 mmol/L (22-30); Chloride 92 mmol/L (98-107); Glucose 118 mg/dL (74-99); Non-African American GFR(CKD) >90 (>60 ml/min/1.73 sqM); Potassium 4.8 mmol/L (3.5-5.1); Sodium 125 mmol/L (137-145)
--- NOTE | 2020-02-26 10:47 | P.CRDCN ---
History of Present Illness History of present illness: HISTORY OF PRESENTING ILLNESS This is a pleasant 84-year-old male past medical history significant for hypertension, former nicotine dependence, COPD and right lung adenocarcinoma. He denies prior history of coronary artery disease and does not follow with a recreation therapy director for any reason. We have been asked to see in consultation for tachycardia. He presented to the hospital for symptoms of palpitations and shortness of breath. He states for the previous 6 months or so he has been experiencing palpitations with any type of activity. He states he gets up and walks through his house and he becomes short of breath and feels his heart racing fast. Once he sits down and catches his breath for a couple minutes everything subsides. He denies associated chest pain, dizziness, nausea, vomiting or diaphoresis. Being in the hospital telemetry tracings have revealed persistent sinus mechanism with no acute arrhythmias noted. He has undergone radiation for his lung cancer but no chemotherapy at this point. There is a miscommunication between him and his oncology team. He also is complaining of dark stools for the previous 3-4 weeks. DIAGNOSTICS EKG reveals sinus tachycardia heart rate of 100. Chest xray on admission revealed a masslike area of infiltrate throughout the right lung with additional patchy densities noted in the left medial lung base. Repeat chest x-ray today. Reveals underlying mass and extensive airspace disease versus pneumonia throughout the right lung slightly worsened from previous study and underlying COPD. CTA of the chest is negative for pulmonary embolism with progression of lung carcinoma and metastatic disease. Laboratory reviewed, WBC 8.1, hemoglobin 11.7, platelets 376, sodium 123, potassium 4.4, creatinine 0.5, magnesium 1.8, cardiac enzymes negative 1, NT proBNP 259 and Covid 19 negative. Current cardiac medications include losartan 50 mg daily and amlodipine 5 mg daily. REVIEW OF SYSTEMS At the time of my exam: CONSTITUTIONAL: Denies fever or chills. CARDIOVASCULAR: Denies chest pain, shortness of breath, orthopnea, PND or palpitations. RESPIRATORY: Denies cough. GASTROINTESTINAL: Denies abdominal pain, diarrhea, constipation, nausea or vomiting. MUSCULOSKELETAL: Denies myalgias. NEUROLOGIC: Denies numbness, tingling or weakness. ENDOCRINE: Denies fatigue, weight change, polydipsia or polyurina. GENITOURINARY: Denies burning, hematuria or urgency with micturation. HEMATOLOGIC: Denies history of anemia or bleeding. PHYSICAL EXAMINATION Blood pressure 160/78 heart rate 88 afebrile and maintaining oxygen saturation on nasal cannula. CONSTITUTIONAL: No apparent distress. HEENT: Head is normocephalic. Pupils are equal, round. Sclerae anicteric. Mucous membranes of the mouth are moist. No JVD. No carotid bruit. CHEST EXAMINATION: Scattered rhonchi throughout and faint expiratory wheezes. No rales. No chest wall tenderness is noted on palpation or with deep breathing. HEART EXAMINATION: Regular rate and rhythm. S1, S2 heard. Systolic ejection murmur most prominent at the base but auscultated at all listening points, no gallops or rub. ABDOMEN: Soft, nontender. Positive bowel sounds. EXTREMITIES: 2+ peripheral pulses, no lower extremity edema and no calf tenderness. NEUROLOGIC EXAMINATION: Patient is awake, alert and oriented x3. ASSESSMENT Palpitations and exertional dyspnea, clinically euvolemic. Hyponatremia Lung cancer status post radiation Hypertension COPD Former nicotine dependence PLAN Clinically the patient is euvolemic. Dyspnea has not secondary to fluid overload. Likely related to adenocarcinoma and COPD. Tachycardia thus far has been sinus with no arrhythmias noted on telemetry tracings. Sinus tachycardia in response to dyspnea, will likely resolve if dyspnea from COPD and lung cancer improves. Obtain 2-D echocardiogram and Doppler study to assess cardiac structure and function. Check TSH. Ongoing medical management. Thank you kindly for this consultation. Nurse Practitioner note has been reviewed, I agree with a documented findings and plan of care. Patient was seen and examined. Past Medical History Past Medical History: COPD, Hypertension, Memory Impairment, Prostate Disorder Additional Past Medical History / Comment(s): intubated due to respiratory distress 2003 History of Any Multi-Drug Resistant Organisms: None Reported Past Surgical History: Tonsillectomy Additional Past Surgical History / Comment(s): vasectomy Past Anesthesia/Blood Transfusion Reactions: No Reported Reaction Past Psychological History: Anxiety Smoking Status: Never smoker Past Alcohol Use History: None Reported Past Drug Use History: None Reported - Past Family History Father Additional Family Medical History / Comment(s): Father was an alcoholic Mother Family Medical History: No Reported History Additional Family Medical History / Comment(s): Mother lived to be 87yrs old. Medications and Allergies Home Medications Medication Instructions Recorded Confirmed Type Ipratropium/Albuterol Sulfate 3 ml INHALATION RT-QID PRN 02/21/14 02/25/20 History [Duoneb 0.5 mg-3 mg/3 ml Soln] amLODIPine BESYLATE [Amlodipine 5 mg PO DAILY 05/21/15 02/25/20 History Besylate] Fluticasone Propion/Salmeterol 1 puff INHALATION RT-BID 09/05/19 02/25/20 History [Wixela 250-50 Inhub] Losartan [Cozaar] 50 mg PO DAILY 09/05/19 02/25/20 History Ferrous Sulfate [Feosol] 325 mg PO DAILY 02/25/20 02/25/20 History Magnesium Gluconate [Magonate] 500 mg PO DAILY 02/25/20 02/25/20 History Multivitamins, Thera [Multivitamin 1 tab PO DAILY 02/25/20 02/25/20 History (formulary)] Allergies Allergy/AdvReac Type Severity Reaction Status Date / Time doxazosin AdvReac Rapid Verified 02/25/20 08:11 Heart Rate tamsulosin [From Flomax] AdvReac Rapid Verified 02/25/20 08:11 Heart Rate Physical Exam Vitals: Vital Signs Temp Pulse Pulse Resp BP BP Pulse Ox 02/26/20 07:43 92 02/26/20 07:31 88 02/26/20 07:30 88 02/26/20 07:19 88 02/26/20 07:00 98.1 F 88 18 160/78 91 L 02/26/20 00:40 98.2 F 89 20 116/55 92 L 02/25/20 20:16 98.0 F 91 24 106/66 93 L 02/25/20 19:57 94 02/25/20 19:50 94 02/25/20 19:37 91 02/25/20 15:17 91 02/25/20 15:06 90 02/25/20 15:00 98.7 F 90 19 142/75 96 02/25/20 12:12 97.6 F 80 17 146/73 92 L 02/25/20 11:37 97.6 F 82 18 123/67 97 02/25/20 11:10 91 02/25/20 10:58 92 Intake and Output 02/25/20 02/26/20 02/26/20 22:59 06:59 14:59 Output Total 900 300 Balance -900 -300 Output: Urine 900 300 Other: Voiding Method Urinal Urinal # Voids 2 Results 02/25/20 07:06 02/25/20 07:06 Current Medications Generic Name Dose Route Start Last Admin Trade Name Freq PRN Reason Stop Dose Admin Acetaminophen 650 mg 02/25/20 12:13 Tylenol Tab PO Q6HR PRN Mild Pain or Fever > 100.5 Al Hydroxide/Mg Hydroxide 15 ml 02/25/20 12:13 Maalox PO Q6HR PRN Indigestion Albuterol/Ipratropium 3 ml 02/25/20 12:00 02/26/20 07:16 Duoneb 0.5 Mg-3 Mg/3 Ml Soln INHALATION 3 ml RT-QID NONA Administration Albuterol/Ipratropium 3 ml 02/25/20 12:11 Duoneb 0.5 Mg-3 Mg/3 Ml Soln INHALATION RT-QID PRN Shortness Of Breath Alprazolam 0.25 mg 02/25/20 12:13 Xanax PO Q6HR PRN Anxiety Amlodipine Besylate 5 mg 02/26/20 09:00 02/26/20 09:02 Norvasc PO 5 mg DAILY NONA Administration Budesonide 0.5 mg 02/25/20 13:00 02/26/20 07:17 Pulmicort INHALATION 0.5 mg RT-BID NONA Administration Calcium Carbonate/Glycine 1,000 mg 02/25/20 12:13 Tums PO Q4HR PRN Dyspepsia Enoxaparin Sodium 40 mg 02/25/20 12:30 02/26/20 09:02 Lovenox SQ 40 mg DAILY NONA Administration Ferrous Sulfate 325 mg 02/26/20 09:00 02/26/20 09:01 Feosol PO 325 mg DAILY NONA Administration Formoterol Fumarate 20 mcg 02/25/20 13:00 02/26/20 07:16 Perforomist INHALATION 20 mcg RT-BID NONA Administration Guaifenesin 1,200 mg 02/25/20 12:30 02/26/20 09:02 Mucinex PO 1,200 mg Q12HR NONA Administration Sodium Chloride 1,000 mls @ 20 mls/hr 02/25/20 09:00 02/25/20 23:16 Saline 0.9% IV Not Given .Q24H NONA Ceftriaxone Sodium 2 gm/ 50 mls @ 100 mls/hr 02/26/20 09:00 02/26/20 09:37 Sodium Chloride IVPB 02/28/20 09:01 100 mls/hr Q24HR NONA Administration Lactulose 20 gm 02/25/20 12:13 Cephulac PO DAILY PRN Constipation Losartan Potassium 50 mg 02/26/20 09:00 02/26/20 09:02 Cozaar PO 50 mg DAILY NONA Administration Magnesium Hydroxide 2,400 mg 02/25/20 12:13 Milk Of Magnesia PO DAILY PRN Constipation Magnesium Oxide 400 mg 02/26/20 09:00 02/26/20 09:02 Mag-Ox PO 400 mg DAILY NONA Administration Melatonin 3 mg 02/25/20 12:13 Melatonin PO HS PRN Insomnia Miscellaneous Information 1 each 02/25/20 08:50 Pneumonia Protocol Utilized PO ONCE PRN Per Protocol Multivitamins 1 each 02/26/20 09:00 02/26/20 09:02 Theragran PO 1 each DAILY NONA Administration Naloxone HCl 0.2 mg 02/25/20 12:13 Narcan IV Q2M PRN Opioid Reversal Ondansetron HCl 4 mg 02/25/20 12:13 Zofran IVP Q8HR PRN Nausea And Vomiting Sodium Biphosphate/Sodium Phosphate 133 ml 02/25/20 12:13 Fleet Adult RECTAL ONCE PRN Constipation Intake and Output 02/25/20 02/26/20 02/26/20 22:59 06:59 14:59 Output Total 900 300 Balance -900 -300 Output: Urine 900 300 Other: Voiding Method Urinal Urinal # Voids 2 02/25/20 07:06 02/25/20 07:06
--- NOTE | 2020-02-26 12:00 | P.PN ---
Subjective Progress Note Date: 02/26/20 Principal diagnosis: Palpitations This is a very pleasant 84-year-old gentleman who follows with Dr. Jansen as his primary care provider. He has a history of hypertension, hearing disorder, prostate disorder, anxiety. He also has a history of tonic tobacco dependence however quit in 2000. He follows with Dr. Huff in our office for COPD. 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 PET scan revealed extensive consolidation and opacity throughout the right upper and right middle lobes with areas of variable mild to intense uptake. The most intense uptake is in the right upper lobe corresponding to the spiculated mass seen back on 01/29/2019. Smaller areas of borderline moderate uptake in the right midlung corresponding to the nodule seen at that time. Additional bilateral pulmonary nodules measuring up to 2.6 cm on the right and 1.8 cm on the left show mild uptake that are suspicious for progressive gradual enlargement. No other metastatic disease is evident. He has undergone 10 radiation treatments and unfortunately had missed appointments with Dr. Choe and has not been initiated on any chemotherapy or other treatments at this time. He had recently been back in the oncology office and states he does have appointments scheduled. He has somewhat of a poor historian. He presented to the emergency room this morning with complaints of palpitations and elevated heart rate. He states usually it subsides after a few minutes of rest but was not slowing down in the presented for the same. He denied any chest pain, no worsening shortness of breath, no cough or congestion. No hemoptysis. No dizziness, lightheadedness. He states he was short of breath while his heart rate was high but is comfortable now at rest. He is currently in sinus rhythm. White count 8.1. Hemoglobin 11.7. Sodium 123. Potassium 4.4. Creatinine 0.58. Troponin negative times one. ProBNP 259. Chest x-ray shows masslike areas of infiltrate throughout the right lung. Additional patchy density in the left medial lung base. His 0.9 normal sinus rate 75 ML's per hour. He's been initiated on ceftriaxone. He is on DuoNeb inhalations, Pulmicort and Perforomist inhalations. Lovenox for DVT prophylaxis. CT angiogram pending. CoVID 19 screen pending. The patient is seen today 02/26/2020 in follow-up on the regular medical floor. He is currently resting comfortably in bed. Awake and alert in no acute distress. No further palpitations. Currently in sinus rhythm. CT angiogram ruled out pulmonary embolism. There is progression of lung carcinoma, metastatic disease. Today's chest x-ray continues to show underlying mass and extensive airspace disease/pneumonia spelled the right lung. Similar compared to previous. Possible nodularity the left hilum and left heart margin. Evide nce of COPD. He is maintaining O2 saturations in the low 90s on 2 L/m per nasal cannula. He's been afebrile. Blood culture reveals no growth. Sputum culture pending. Sodium 125. Potassium 4.8. Chloride 92. Bicarb 23. Creatinine 0.55. Glucose 118. TSH 1.73. Urine osmolality 249. Serum osmolality 258. Coronavirus not detected. Objective - Vital Signs Vital signs: Vital Signs Temp 98.1 F 02/26/20 07:00 Pulse 96 02/26/20 11:11 Resp 18 02/26/20 07:00 BP 160/78 02/26/20 07:00 Pulse Ox 91 L 02/26/20 07:00 Intake & Output 02/25/20 02/26/20 02/26/20 18:59 06:59 18:59 Output Total 1200 Balance -1200 Weight 68.039 kg Output: Urine 1200 Other: Voiding Method Urinal # Voids 1 2 1 # Bowel Movements 1 - Exam GENERAL EXAM: Alert, pleasant 84-year-old gentleman, on 2 L nasal cannula, comfortable in no apparent distress. HEAD: Normocephalic. EYES: Normal reaction of pupils, equal size. NOSE: Clear with pink turbinates. THROAT: No erythema or exudates. NECK: No masses, no JVD. CHEST: No chest wall deformity. LUNGS: Equal air entry with bilateral scattered rhonchi right greater than left. CVS: S1 and S2 normal with no audible murmur, regular rhythm. ABDOMEN: No hepatosplenomegaly, normal bowel sounds, no guarding or rigidity. SPINE: No scoliosis or deformity SKIN: No rashes CENTRAL NERVOUS SYSTEM: No focal deficits, tone is normal in all 4 extremities. EXTREMITIES: There is no peripheral edema. No clubbing, no cyanosis. Peripheral pulses are intact. - Labs CBC & Chem 7: 02/25/20 07:06 02/26/20 09:37 Labs: Abnormal Lab Results - Last 24 Hours (Table) 02/25/20 02/26/20 Range/Units 07:02 09:37 Sodium 125 L (137-145) mmol/L Chloride 92 L (98-107) mmol/L BUN 7 L (9-20) mg/dL Creatinine 0.55 L (0.66-1.25) mg/dL Glucose 118 H (74-99) mg/dL Osmolality 258 L (280-301) mosm/kg Microbiology - Last 24 Hours (Table) 02/25/20 09:03 Blood Culture - Preliminary Blood No Growth after 24 hours 02/25/20 11:10 Gram Stain - Preliminary Sputum Sputum Culture - Preliminary Assessment and Plan Assessment: 1 Palpitations of unclear etiology, currently in normal sinus rhythm with occasional PACs, echocardiogram pending 2 Adenocarcinoma of the lung, diagnosed in August 2019, PET scan revealed extensive consolidation opacity throughout the right upper and right middle lobes with areas of variable mild to intense uptake. This intense uptake in the right upper lobe corresponding to the spiculated mass seen back on 01/29/2019. Smaller areas of underlying moderate uptake in the right midlung corresponding nodule seen at that time. Additional bilateral pulmonary nodules measuring up to 2.6 cm on the right and 1.8 cm on the left show mild uptake but her suspicious given progressive gradual enlargement. No other metastatic disease was evident. Status post radiation treatment thus far. 3 Former smoker quit in 2000 4 Hypoosmolar hyponatremia with current sodium 125 5 Hypertension 6 Hearing disorder 7 History of anxiety 8 Poor historian 9 Benign prostatic hyperplasia Plan: The patient was seen and evaluated by Dr. Huff CAT scan, chest x-ray, labs reviewed Oncology consulted CoVID 19 screen negative Continue bronchodilators and empiric antibiotics We will continue to follow and make further recommendations based on his clinical status I, the cosigning physician, performed a history & physical examination of the patient. Lungs sounds with bilateral scattered rhonchi right greater than left. Maintaining good O2 saturations in the 90s on 2 L/m per nasal cannula. I d iscussed the assessment and plan of care with my nurse practitioner, Zuleyma Crews. I attest to the above note as dictated by her.
--- NOTE | 2020-02-26 12:10 | ECHOF ---
Referral Reason:sob, murmur, s/p radiation MEASUREMENTS -------- HEIGHT: 172.7 cm WEIGHT: 68.0 kg BP: IVSd: 1.2 cm (0.6 - 1.1) LVIDd: 3.3 cm (3.9 - 5.3) LVPWd: 1.2 cm (0.6 - 1.1) IVSs: 1.3 cm LVIDs: 2.9 cm LVPWs: 1.4 cm LA Diam: 3.4 cm (2.7 - 3.8) LAESV Index (A-L): 19.44 ml/m MV EXCURSION: 27.289 mm (> 18.000) MV EF SLOPE: 78 mm/s (70 - 150) EPSS: 0.5 cm MV E Philip: 0.66 m/s MV DecT: 226 ms MV A Philip: 1.00 m/s MV E/A Ratio: 0.66 AV maxP.67 mmHg AV meanP.79 mmHg RAP: 5.00 mmHg RVSP: 48.14 mmHg FINDINGS -------- Sinus rhythm. This was a technically adequate study. The left ventricular size is normal. There is borderline concentric left ventricular hypertrophy. Overall left ventricular systolic function is low-normal with, an EF between 50 - 55 %. The right ventricle is normal in size. The left atrial size is normal. The right atrial size is normal. There is mild aortic regurgitation. There is severe aortic stenosis present. Peak/mean gradient a cross the Aortic Valve is 65.67mmHg / 42.79mmHg. Vmax of aortic valve is 4.0 m/s. Mild mitral regurgitation is present. No regurgitation noted There is moderate pulmonary hypertension. There is no pulmonic regurgitation present. The aortic root size is normal. There is no pericardial effusion. CONCLUSIONS -------- 1. The left ventricular size is normal. 2. There is borderline concentric left ventricular hypertrophy. 3. Overall left ventricular systolic function is low-normal with, an EF between 50 - 55 %. 4. The right ventricle is normal in size. 5. The left atrial size is normal. 6. The right atrial size is normal. 7. There is mild aortic regurgitation. 8. There is severe aortic stenosis present. 9. Peak/mean gradient across the Aortic Valve is 65.67mmHg / 42.79mmHg. 10. Mild mitral regurgitation is present. 11. No regurgitation noted 12. There is moderate pulmonary hypertension. 13. There is no pericardial effusion. BAKERY MANAGER: Gilda Farah RDCS
[2020-02-26 12:32] LABS: Basophils % (A) 0 %; Eosinophils # (A) 0.1 k/uL (0-0.7); Eosinophils % (A) 1 %; HCT 36.4 % (39.0-53.0); Lymphocytes # (A) 0.4 k/uL (1.0-4.8); Lymphocytes % (A) 6 %; MCH 31.9 pg (25.0-35.0); MCHC 32.9 g/dL (31.0-37.0); MCV 97.1 fL (80.0-100.0); Mean Platelet Volume 7.8; Monocytes # (A) 0.6 k/uL (0-1.0); Monocytes % (A) 9 %; Neutrophils # (A) 5.4 k/uL (1.3-7.7); Neutrophils % (A) 83 %; Platelet Count 436 k/uL (150-450); RBC 3.75 m/uL (4.30-5.90); RDW 12.7 % (11.5-15.5); WBC 6.5 k/uL (3.8-10.6)
--- NOTE | 2020-02-26 12:39 | P.CONS ---
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 He underwent palliative radiotherapy in 09/2019 due to dyspnea. He has not coordinated any systemic therapy and has been non-complaint. He presents with dyspnea and palpitations. The patient presented to the emergency room complaining of palpitations. He also notes that he has had significant increased dyspnea on exertion. During our last visit, the patient was still able to mow his lawn, and walk stairs but would have to take breaks. He states that this is becoming progressively worse. He is no longer able to mow his own lawn. He denies chest pain, but notes some persistent cough. She underwent a CT of the chest on February 24 showing increase in the right lower lung burden of disease. The patient also has a couple of new metastasis in the left lung field. He unfortunately has no family or social support. Review of Systems Constitutional: Denies chills, Denies fever Ears, nose, mouth and throat: Denies headache Cardiovascular: Reports decreased exercise tolerance, Reports dyspnea on exertion, Denies chest pain Respiratory: Reports cough with sputum, Reports dyspnea, Denies hemoptysis, Denies home oxygen, Denies pain Gastrointestinal: Denies abdominal pain, Denies change in bowel habits Musculoskeletal: Denies low back pain Integumentary: Denies rash Neurological: Denies convulsions Psychiatric: Reports irritability Past Medical History Past Medical History: COPD, Hypertension, Memory Impairment, Prostate Disorder Additional Past Medical History / Comment(s): intubated due to respiratory distress 2003 History of Any Multi-Drug Resistant Organisms: None Reported Past Surgical History: Tonsillectomy Additional Past Surgical History / Comment(s): vasectomy Past Anesthesia/Blood Transfusion Reactions: No Reported Reaction Past Psychological History: Anxiety Smoking Status: Never smoker Past Alcohol Use History: None Reported Past Drug Use History: None Reported - Past Family History Father Additional Family Medical History / Comment(s): Father was an alcoholic Mother Family Medical History: No Reported History Additional Family Medical History / Comment(s): Mother lived to be 87yrs old. Medications and Allergies Home Medications Medication Instructions Recorded Confirmed Type Ipratropium/Albuterol Sulfate 3 ml INHALATION RT-QID PRN 02/21/14 02/25/20 History [Duoneb 0.5 mg-3 mg/3 ml Soln] amLODIPine BESYLATE [Amlodipine 5 mg PO DAILY 05/21/15 02/25/20 History Besylate] Fluticasone Propion/Salmeterol 1 puff INHALATION RT-BID 09/05/19 02/25/20 History [Wixela 250-50 Inhub] Losartan [Cozaar] 50 mg PO DAILY 09/05/19 02/25/20 History Ferrous Sulfate [Feosol] 325 mg PO DAILY 02/25/20 02/25/20 History Magnesium Gluconate [Magonate] 500 mg PO DAILY 02/25/20 02/25/20 History Multivitamins, Thera [Multivitamin 1 tab PO DAILY 02/25/20 02/25/20 History (formulary)] Allergies Allergy/AdvReac Type Severity Reaction Status Date / Time doxazosin AdvReac Rapid Verified 02/25/20 08:11 Heart Rate tamsulosin [From Flomax] AdvReac Rapid Verified 02/25/20 08:11 Heart Rate Physical Exam Vitals: Vital Signs Temp Pulse Pulse Resp BP Pulse Ox 02/26/20 11:11 96 02/26/20 10:56 88 02/26/20 07:43 92 02/26/20 07:31 88 02/26/20 07:30 88 02/26/20 07:19 88 02/26/20 07:00 98.1 F 88 18 160/78 91 L 02/26/20 00:40 98.2 F 89 20 116/55 92 L 02/25/20 20:16 98.0 F 91 24 106/66 93 L 02/25/20 19:57 94 02/25/20 19:50 94 02/25/20 19:37 91 02/25/20 15:17 91 02/25/20 15:06 90 02/25/20 15:00 98.7 F 90 19 142/75 96 Intake and Output 02/25/20 02/26/20 02/26/20 22:59 06:59 14:59 Output Total 900 300 Balance -900 -300 Output: Urine 900 300 Other: Voiding Method Urinal Urinal # Voids 2 1 # Bowel Movements 1 - Constitutional General appearance: disheveled, no acute distress - EENT Eyes: EOMI, PERRLA ENT: hard of hearing - Neck Neck: no lymphadenopathy - Respiratory Respiratory: right: diminished, bilateral: rhonchi - Cardiovascular Rhythm: regular - Gastrointestinal General gastrointestinal: no distended, no tenderness - Integumentary Integumentary: no cellulitis - Neurologic Neurologic: CNII-XII intact - Psychiatric Psychiatric: A&O x's 3, no appropriate affect (irritable) Results CBC & Chem 7: 02/25/20 07:06 02/26/20 09:37 Labs: Abnormal Lab Results - Last 24 Hours (Table) 02/25/20 02/26/20 Range/Units 07:02 09:37 Sodium 125 L (137-145) mmol/L Chloride 92 L (98-107) mmol/L BUN 7 L (9-20) mg/dL Creatinine 0.55 L (0.66-1.25) mg/dL Glucose 118 H (74-99) mg/dL Osmolality 258 L (280-301) mosm/kg Microbiology - Last 24 Hours (Table) 02/25/20 09:03 Blood Culture - Preliminary Blood No Growth after 24 hours 02/25/20 11:10 Gram Stain - Preliminary Sputum Sputum Culture - Preliminary CT scan - chest: report reviewed, image reviewed Assessment and Plan Plan: The patient is an 84-year-old male with what appears to be a stage IVB (cT3, cN1, 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 He underwent palliative radiotherapy in 09/2019 due to dyspnea. He has not coordinated any systemic therapy and has been non-complaint. He presents with dyspnea and palpitations. 1. Dyspnea: This is likely secondary to progression of his right lung cancer. Compared to his prior imaging from September, the patient has had significant consolidative changes in the right lower lobe. 2. Metastatic non-small cell lung cancer: The patient unfortunately has not been compliant with follow-up. After completing palliative radiotherapy, he failed to coordinate with medical oncology for outpatient treatment. The patient unfortunately has very little social support, and has had difficulty coordinating appointments and showing up for said appointments. The patient has at times been reluctant to undergo chemotherapy. He now however has clear progression of his disease. I will discuss his case with medical oncology. The patient certainly expressed a desire to continue to live at home, and wishes to continue living independently. If the patient is unable/unwilling to initiate systemic therapy, he should be arranged to have a hospice or palliative care consultation. Otherwise he will continue to have repeated hospitalizations as his disease progresses unchecked. There is no significant role for palliative radiotherapy at this time. Time with Patient: Greater than 30
--- NOTE | 2020-02-26 12:51 | P.CONS ---
History of Present Illness - Reason for Consult Consult date: 02/26/20 lung cancer Requesting physician: Justin Thomas - Chief Complaint pneumonia - History of Present Illness Mr. Rodriguez is an 84-year-old male with advanced COPD, followed by Dr. Dr. Huff, diagnosed with non-small cell lung cancer earlier this year. Patient had a right upper lobe mass found 04/15/18, also noted were pulmonary nodules bilaterally. PET scan confirmed metabolic activity. Patient had refused biopsy and continued on follow-up. A chair patient had scans that showed persistence. He ended up in the emergency room 09/11 due to progressive difficulty in br eathing, patient at that time agreed to bronchoscopy and biopsy. The pathology was positive for adenocarcinoma. Patient ended up having radiation for acute symptoms. He unfortunately had 12 appt with medical oncology to which he either no showed or he refusal to be seen. Patient is admitted with complaints of an elevated heart rate. He had a CT of the chest, negative for PE. No new areas of cancer that were noted to be increased in size, additional nodules noted. Patient is mostly uncooperative during H&P. He is currently denying any acute symptoms. His pathology returned negative for PDL 1 positivity, he has a KRAS mutation, unfortunately there are no approved lung cancer therapies for K-ariana mutation at this time. Review of Systems Focused review of systems is negative except as stated in HPI Past Medical History Past Medical History: Cancer (Non-small cell lung cancer 08/2019. Nodules have been noted for at least 3 years. Patient continued to refuse workup. Treated only with radiation), COPD, Hypertension, Memory Impairment, Prostate Disorder Additional Past Medical History / Comment(s): intubated due to respiratory distress 2003 History of Any Multi-Drug Resistant Organisms: None Reported Past Surgical History: Tonsillectomy Additional Past Surgical History / Comment(s): vasectomy Past Anesthesia/Blood Transfusion Reactions: No Reported Reaction Past Psychological History: Anxiety Smoking Status: Never smoker Past Alcohol Use History: None Reported Past Drug Use History: None Reported - Past Family History Father Additional Family Medical History / Comment(s): Father was an alcoholic Mother Family Medical History: No Reported History Additional Family Medical History / Comment(s): Mother lived to be 87yrs old. Medications and Allergies Home Medications Medication Instructions Recorded Confirmed Type Ipratropium/Albuterol Sulfate 3 ml INHALATION RT-QID PRN 02/21/14 02/25/20 History [Duoneb 0.5 mg-3 mg/3 ml Soln] amLODIPine BESYLATE [Amlodipine 5 mg PO DAILY 05/21/15 02/25/20 History Besylate] Fluticasone Propion/Salmeterol 1 puff INHALATION RT-BID 09/05/19 02/25/20 History [Wixela 250-50 Inhub] Losartan [Cozaar] 50 mg PO DAILY 09/05/19 02/25/20 History Ferrous Sulfate [Feosol] 325 mg PO DAILY 02/25/20 02/25/20 History Magnesium Gluconate [Magonate] 500 mg PO DAILY 02/25/20 02/25/20 History Multivitamins, Thera [Multivitamin 1 tab PO DAILY 02/25/20 02/25/20 History (formulary)] Allergies Allergy/AdvReac Type Severity Reaction Status Date / Time doxazosin AdvReac Rapid Verified 02/25/20 08:11 Heart Rate tamsulosin [From Flomax] AdvReac Rapid Verified 02/25/20 08:11 Heart Rate Physical Exam Vitals: Vital Signs Temp Pulse Pulse Resp BP BP Pulse Ox 02/26/20 11:11 96 02/26/20 10:56 88 02/26/20 07:43 92 02/26/20 07:31 88 02/26/20 07:30 88 02/26/20 07:19 88 02/26/20 07:00 98.1 F 88 18 160/78 91 L 02/26/20 00:40 98.2 F 89 20 116/55 92 L 02/25/20 20:16 98.0 F 91 24 106/66 93 L 02/25/20 19:57 94 02/25/20 19:50 94 02/25/20 19:37 91 02/25/20 15:17 91 02/25/20 15:06 90 02/25/20 15:00 98.7 F 90 19 142/75 96 02/25/20 12:12 97.6 F 80 17 146/73 92 L 02/25/20 11:37 97.6 F 82 18 123/67 97 Intake and Output 02/25/20 02/26/20 02/26/20 22:59 06:59 14:59 Output Total 900 300 Balance -900 -300 Output: Urine 900 300 Other: Voiding Method Urinal Urinal # Voids 2 1 # Bowel Movements 1 - Constitutional General appearance: average body habitus, no acute distress - EENT Eyes: anicteric sclerae, EOMI ENT: hearing grossly normal - Neck Neck: no lymphadenopathy - Respiratory Respiratory: bilateral: diminished - Cardiovascular Heart sounds: normal: S1, S2 Abnormal Heart Sounds: no systolic murmur, no diastolic murmur, no rub, no S3 Gallop, no S4 Gallop, no click, no other leg Peripheral Edema: bilateral: None - Gastrointestinal General gastrointestinal: no absent bowel sounds, no decreased bowel sounds, no distended, no hepatomegaly, no hyperactive bowel sounds, normal bowel sounds, no organomegaly, no rigid, no scaphoid, soft, no splenomegaly, no tenderness, no umbilical hernia, no ventral hernia - Neurologic Neurologic: CNII-XII intact - Musculoskeletal Musculoskeletal: strength equal bilaterally - Psychiatric Psychiatric: A&O x's 3, intact judgment & insight Results CBC & Chem 7: 02/26/20 09:37 02/26/20 09:37 Labs: Abnormal Lab Results - Last 24 Hours (Table) 02/25/20 02/26/20 Range/Units 07:02 09:37 Sodium 125 L (137-145) mmol/L Chloride 92 L (98-107) mmol/L BUN 7 L (9-20) mg/dL Creatinine 0.55 L (0.66-1.25) mg/dL Glucose 118 H (74-99) mg/dL Osmolality 258 L (280-301) mosm/kg Microbiology - Last 24 Hours (Table) 02/25/20 09:03 Blood Culture - Preliminary Blood No Growth after 24 hours 02/25/20 11:10 Gram Stain - Preliminary Sputum Sputum Culture - Preliminary CT scan - chest: report reviewed Assessment and Plan Plan: Metastatic non-small cell lung cancer: Case was discussed with both Pulmonary as well as Radiation Oncology. Patient has not followed up with radiation oncology since September. Patient has been offered multiple chances to be seen by medical oncologist, it is unclear if it is his decision to not see medical oncology as he claims that he can't hear when people are leaving appointments but, there is documentation saying that the patient says he doesn't want to be seen. Currently, there are no appointments for the patient at the office. I will check with Dr. Greer and see if he is willing to see the patient. Patient still does not seem willing to see anybody but, we will continue to make sure patient has the information that he needs. Dr. Choe did explain to the patient that based on the CTA he appears to have progressive disease. The only option for treatment at this time is systemic therapy. Radiation Oncology agreed with the same. They will certainly assist the patient for symptomatic disease if they are able. We are available if patient chooses to seek systemic therapy. If he does not, recommendation would be for hospice care for management of symptoms, patient comfort. Doctor attests: I performed a history and physical examination of this patient, developed impression and plan of care. Discussed with dictator. I agree with dictators note, documented as a scribe.
[2020-02-26 13:24] VITALS: BMI 22.8
--- NOTE | 2020-02-26 15:22 | PN ---
PROGRESS NOTE DATE OF DICTATION: 02/26/2020 Patient is an 84-year-old pleasant white male admitted to the hospital with exacerbation of COPD. While in the hospital he was noted to have mild anemia and dark- colored stools and hence he was seen on consultation yesterday. Stool for Hemoccult was obtained yesterday that was reported as negative. In the meantime, his hemoglobin remains stable at 12 g/dL. He denies any abdominal pain. No nausea, no vomiting. He continues to say that the stool has been black in color, but he has been on iron supplements lately. PHYSICAL EXAMINATION: Appears comfortable. VITAL SIGNS: Stable. Blood pressure is 145/86, pulse rate 96 per minute and afebrile. HEENT examination unremarkable. Conjunctivae pink. Sclerae anicteric. Oral cavity no lesions. NECK: No JVD or lymph node enlargement. CHEST: Decreased breath sounds bilaterally. HEART: Regular rate and rhythm. ABDOMEN: Soft. Bowel sounds are positive. EXTREMITIES: No pedal edema. SKIN: No rashes. NEUROLOGIC: Alert and oriented x3. No focal deficits. LABS: Labs from today show WBC 6.5, hemoglobin 12, platelets are normal. Basic metabolic panel showed a BUN of 7, creatinine 0.55. Stool Hemoccult is negative. IMPRESSION: 1. Dark-colored stools and mild anemia. Clinically no evidence of GI bleed. Stool Hemoccult was negative. Hemoglobin is stable. Possibly he is noticing black stools because of iron supplements that he has been on for the last few months. 2. Exacerbation of chronic obstructive pulmonary disease, which is gradually improving. 3. Stage IV lung cancer, status post palliative radiotherapy in September of this year. He sees Dr. Choe on an outpatient basis. RECOMMENDATIONS: 1. Monitor CBC on a daily basis. 2. No need for any endoscopic intervention at the present time. 3. Will sign off at this time. Please call us if needed. Thank you for this consultation. MMODL / IJN: [id number] /
--- NOTE | 2020-02-26 17:25 | P.PN ---
Progress Note - Text Progress Note Date: 02/26/20 Chief Complaint: Shortness of breath History of presenting complaint: This is a very pleasant 84-year-old patient of Dr. Jansen.-medical office representative Dr. Machado. Patient has long-standing history of COPD. Had been on oxygen. Chronic stable medical conditions include hypertension, some cognitive impairment, GERD, BPH, osteoarthritis. Was admitted in August of this year with pneumonia. 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 Patient apparently did get some radiation treatment by Dr. Loyd Roldan. It's unclear from the patient's history as to why he is not able to follow with oncologist. Patient been having increasing hot off and on for last 2 months. Intermittent. Became more persistent Patient did bring up phlegm that is clear. Increase in shortness of breath especially with activity. Appetite is okay. A bit tired rundown. admitted with multilobar pneumonia, COPD exacerbation. Started on IV ceftriaxone bronchodilators. Today-feeling tired. Decreased appetite. Getting antibiotics. Got a bit agitated this afternoon. [place] better after getting Ativan. Review of systems: Was done for constitutional, cardiovascular, GI, pulmonary. relevant finding as above Active Medications Acetaminophen (Tylenol Tab) 650 mg PO Q6HR PRN PRN Reason: Mild Pain or Fever > 100.5 Al Hydroxide/Mg Hydroxide (Maalox) 15 ml PO Q6HR PRN PRN Reason: Indigestion Albuterol/Ipratropium (Duoneb 0.5 Mg-3 Mg/3 Ml Soln) 3 ml INHALATION RT-QID [facility] Last Admin: 02/26/20 16:31 Dose: 3 ml Documented by: Albuterol/Ipratropium (Duoneb 0.5 Mg-3 Mg/3 Ml Soln) 3 ml INHALATION RT-QID PRN PRN Reason: Shortness Of Breath Alprazolam (Xanax) 0.25 mg PO Q6HR PRN PRN Reason: Anxiety Amlodipine Besylate (Norvasc) 5 mg PO DAILY [facility] Last Admin: 02/26/20 09:02 Dose: 5 mg Documented by: Budesonide (Pulmicort) 0.5 mg INHALATION RT-BID [facility] Last Admin: 02/26/20 07:17 Dose: 0.5 mg Documented by: Calcium Carbonate/Glycine (Tums) 1,000 mg PO Q4HR PRN PRN Reason: Dyspepsia Enoxaparin Sodium (Lovenox) 40 mg SQ DAILY [facility] Last Admin: 02/26/20 09:02 Dose: 40 mg Documented by: Ferrous Sulfate (Feosol) 325 mg PO DAILY [facility] Last Admin: 02/26/20 09:01 Dose: 325 mg Documented by: Formoterol Fumarate (Perforomist) 20 mcg INHALATION RT-BID [facility] Last Admin: 02/26/20 07:16 Dose: 20 mcg Documented by: Guaifenesin (Mucinex) 1,200 mg PO Q12HR [facility] Last Admin: 02/26/20 09:02 Dose: 1,200 mg Documented by: Sodium Chloride (Saline 0.9%) 1,000 mls @ 20 mls/hr IV .Q24H [facility] Last Admin: 02/25/20 23:16 Dose: Not Given Documented by: Ceftriaxone Sodium 2 gm/ (Sodium Chloride) 50 mls @ 100 mls/hr IVPB Q24HR [facility] Stop: 02/28/20 09:01 Last Admin: 02/26/20 09:37 Dose: 100 mls/hr Documented by: Lactulose (Cephulac) 20 gm PO DAILY PRN PRN Reason: Constipation Losartan Potassium (Cozaar) 50 mg PO DAILY [facility] Last Admin: 02/26/20 09:02 Dose: 50 mg Documented by: Magnesium Hydroxide (Milk Of Magnesia) 2,400 mg PO DAILY PRN PRN Reason: Constipation Magnesium Oxide (Mag-Ox) 400 mg PO DAILY [facility] Last Admin: 02/26/20 09:02 Dose: 400 mg Documented by: Melatonin (Melatonin) 3 mg PO HS PRN PRN Reason: Insomnia Miscellaneous Information (Pneumonia Protocol Utilized) 1 each PO ONCE PRN PRN Reason: Per Protocol Multivitamins (Theragran) 1 each PO DAILY [facility] Last Admin: 02/26/20 09:02 Dose: 1 each Documented by: Naloxone HCl (Narcan) 0.2 mg IV Q2M PRN PRN Reason: Opioid Reversal Ondansetron HCl (Zofran) 4 mg IVP Q8HR PRN PRN Reason: Nausea And Vomiting Sodium Biphosphate/Sodium Phosphate (Fleet Adult) 133 ml RECTAL ONCE PRN PRN Reason: Constipation Physical examination: VITAL SIGNS: 98.4, 72, 16, 147/81, 94% on 3 L GENERAL: laying in bed, tired EYES: Pupils equal. Conjunctiva normal. HEENT: External appearance of nose and ears normal, oral cavity grossly normal. NECK: JVD not raised; masses not palpable. HEART: First and second heart sounds are normal; no edema. LUNGS: Respiratory rate increased, decreased breath sounds prolonged expiration some wheezing. ABDOMEN: Soft, nontender, liver spleen not palpable, no masses palpable. PSYCH: tired, answering questions MUSCULAR skeletal: Evidence of OA INVESTIGATIONS, reviewed in the clinical context: White count 6.5 hemoglobin 12 sodium 125 potassium 4.8 bun 7 creatinine 0.55 Previous testing White count 8.1 hemoglobin 11.7 platelets 376 potassium 4.4 sodium 123 creatinine 0.58 serum osmolality 258 Troponin I 0.012 proBNP 259 EKG tracing personally reviewed by me-normal sinus rhythm, Chest x-ray film personally reviewed by me-she especially right-sided mass with infiltrates and mediastinum pulled the right Chest CTA-negative for PE. Abnormal large density in the right lung. Multiple nodules in both the sides. 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 Patient has received radiation treatment. Unclear about his follow-up with oncology. -Essential hypertension -Anxiety not otherwise specified -Mild cognitive impairment. We'll do a full assessment of with [facility] cognitive-assessment test. -GERD -BPH -Primary osteoarthritis -Acute COPD exacerbation in an ex-smoker -Question GI bleed with dark stools. Plan: use Ativan when necessary for anxiety. Follow with oncology and. Discussed with Dr. Roldan. Discussed with the patient. Put the patient on fluid restriction. Avoid free fluids..
[2020-02-26] MEDS ORDERED: LORazepam 2 MG/ML INJ IV PRN (17:33)
[2020-02-26] MEDS: SODIUM CHLORIDE 0.9% 1,000 ML IV SCH (21:48)
[2020-02-27] MEDS: FORMOTEROL FUMARATE 20 MCG/2 ML NEBU INHALATION SCH ×2 (08:14→19:15)
[2020-02-27] MEDS: IPRATROPIUM-ALBUTEROL 3 ML NEB INHALATION SCH ×4 (08:15→19:15)
[2020-02-27] MEDS: BUDESONIDE 0.5 MG/2 ML NEBU INHALATION SCH ×2 (08:15→19:15)
[2020-02-27] MEDS: MULTIVITAMINS, THERA 1 EACH TAB PO SCH (08:48)
[2020-02-27] MEDS: ENOXAPARIN 40 MG/0.4 ML SYRINGE SQ SCH (08:48)
[2020-02-27] MEDS: FERROUS SULFATE 325 MG TAB PO SCH (08:49)
[2020-02-27] MEDS: MAGNESIUM OXIDE 400 MG TAB PO SCH (08:49)
[2020-02-27] MEDS: guaiFENesin 600 MG TABLET.ER PO SCH ×2 (08:49→20:30)
[2020-02-27] MEDS: amLODIPine 5 MG TAB PO SCH (08:49)
[2020-02-27] MEDS: LOSARTAN 50 MG TAB PO SCH (08:49)
[2020-02-27] MEDS ORDERED: DEMECLOCYCLINE 150 MG TAB PO SCH (12:00)
--- NOTE | 2020-02-27 12:05 | P.PN ---
Subjective Progress Note Date: 02/27/20 Principal diagnosis: Palpitations This is a very pleasant 84-year-old gentleman who follows with Dr. Jansen as his primary care provider. He has a history of hypertension, hearing disorder, prostate disorder, anxiety. He also has a history of tonic tobacco dependence however quit in 2000. He follows with Dr. Huff in our office for COPD. 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 PET scan revealed extensive consolidation and opacity throughout the right upper and right middle lobes with areas of variable mild to intense uptake. The most intense uptake is in the right upper lobe corresponding to the spiculated mass seen back on 01/29/2019. Smaller areas of borderline moderate uptake in the right midlung corresponding to the nodule seen at that time. Additional bilateral pulmonary nodules measuring up to 2.6 cm on the right and 1.8 cm on the left show mild uptake that are suspicious for progressive gradual enlargement. No other metastatic disease is evident. He has undergone 10 radiation treatments and unfortunately had missed appointments with Dr. Choe and has not been initiated on any chemotherapy or other treatments at this time. He had recently been back in the oncology office and states he does have appointments scheduled. He has somewhat of a poor historian. He presented to the emergency room this morning with complaints of palpitations and elevated heart rate. He states usually it subsides after a few minutes of rest but was not slowing down in the presented for the same. He denied any chest pain, no worsening shortness of breath, no cough or congestion. No hemoptysis. No dizziness, lightheadedness. He states he was short of breath while his heart rate was high but is comfortable now at rest. He is currently in sinus rhythm. White count 8.1. Hemoglobin 11.7. Sodium 123. Potassium 4.4. Creatinine 0.58. Troponin negative times one. ProBNP 259. Chest x-ray shows masslike areas of infiltrate throughout the right lung. Additional patchy density in the left medial lung base. His 0.9 normal sinus rate 75 ML's per hour. He's been initiated on ceftriaxone. He is on DuoNeb inhalations, Pulmicort and Perforomist inhalations. Lovenox for DVT prophylaxis. CT angiogram pending. CoVID 19 screen pending. The patient is seen today 02/26/2020 in follow-up on the regular medical floor. He is currently resting comfortably in bed. Awake and alert in no acute distress. No further palpitations. Currently in sinus rhythm. CT angiogram ruled out pulmonary embolism. There is progression of lung carcinoma, metastatic disease. Today's chest x-ray continues to show underlying mass and extensive airspace disease/pneumonia spelled the right lung. Similar compared to previous. Possible nodularity the left hilum and left heart margin. Evide nce of COPD. He is maintaining O2 saturations in the low 90s on 2 L/m per nasal cannula. He's been afebrile. Blood culture reveals no growth. Sputum culture pending. Sodium 125. Potassium 4.8. Chloride 92. Bicarb 23. Creatinine 0.55. Glucose 118. TSH 1.73. Urine osmolality 249. Serum osmolality 258. Coronavirus not detected. The patient is seen today 02/27/2020 in follow-up on the regular medical floor. He is currently sitting up in a chair at the bedside. Awake and alert in no acute distress. Maintaining good O2 saturations in the upper 90s on 4 L/m per nasal cannula. She's been afebrile. Blood and sputum cultures reveal no growth. Stool for occult blood was negative. He is continued on DuoNeb inhalations, Pulmicort and Perforomist inhalations, antibiotics in the form of ceftriaxone. Enoxaparin for DVT prophylaxis. Objective - Vital Signs Vital signs: Vital Signs Temp 97.5 F L 02/27/20 07:00 Pulse 92 02/27/20 11:49 Resp 17 02/27/20 08:00 BP 111/67 02/27/20 07:00 Pulse Ox 97 02/27/20 07:00 Intake & Output 02/26/20 02/27/20 02/27/20 18:59 06:59 18:59 Weight 68.039 kg Other: Voiding Method Urinal Urinal # Voids 1 2 # Bowel Movements 1 - Exam GENERAL EXAM: Alert, pleasant 84-year-old gentleman, on 4 L nasal cannula, comfortable in no apparent distress. HEAD: Normocephalic. EYES: Normal reaction of pupils, equal size. NOSE: Clear with pink turbinates. THROAT: No erythema or exudates. NECK: No masses, no JVD. CHEST: No chest wall deformity. LUNGS: Equal air entry with bilateral scattered rhonchi right greater than left. CVS: S1 and S2 normal with no audible murmur, regular rhythm. ABDOMEN: No hepatosplenomegaly, normal bowel sounds, no guarding or rigidity. SPINE: No scoliosis or deformity SKIN: No rashes CENTRAL NERVOUS SYSTEM: No focal deficits, tone is normal in all 4 extremities. EXTREMITIES: There is no peripheral edema. No clubbing, no cyanosis. Peripheral pulses are intact. - Labs CBC & Chem 7: 02/26/20 09:37 02/26/20 09:37 Labs: Abnormal Lab Results - Last 24 Hours (Table) 02/26/20 Range/Units 09:37 RBC 3.75 L (4.30-5.90) m/uL Hgb 12.0 L (13.0-17.5) gm/dL Hct 36.4 L (39.0-53.0) % Lymphocytes # 0.4 L (1.0-4.8) k/uL Microbiology - Last 24 Hours (Table) 02/25/20 09:03 Blood Culture - Preliminary Blood No Growth after 48 hours 02/25/20 11:10 Gram Stain - Final Sputum Sputum Culture - Final Assessment and Plan Assessment: 1 Palpitations of unclear etiology, currently in normal sinus rhythm with occasional PACs, echocardiogram revealed preserved left ventricular systolic function with ejection fraction 50-55% 2 Adenocarcinoma of the lung, diagnosed in August 2019, PET scan revealed exten sive consolidation opacity throughout the right upper and right middle lobes with areas of variable mild to intense uptake. This intense uptake in the right upper lobe corresponding to the spiculated mass seen back on 01/29/2019. Smaller areas of underlying moderate uptake in the right midlung corresponding nodule seen at that time. Additional bilateral pulmonary nodules measuring up to 2.6 cm on the right and 1.8 cm on the left show mild uptake but her suspicious given progressive gradual enlargement. No other metastatic disease was evident. Status post radiation treatment thus far. 3 Former smoker quit in 2000 4 Hypoosmolar hyponatremia with current sodium 125 5 Hypertension 6 Hearing disorder 7 History of anxiety 8 Poor historian 9 Benign prostatic hyperplasia Plan: The patient was seen and evaluated by Dr. Refugio Domínguez Declomycin for hyponatremia Continue bronchodilators and empiric antibiotics Overall prognosis remains quite guarded and poor We will continue to follow and make further recommendations based on his clinical status I, the cosigning physician, performed a history & physical examination of the patient. Lungs sounds with bilateral scattered rhonchi right greater than left. Maintaining good O2 saturations in the 90s on 4 L/m per nasal cannula. I discussed the assessment and plan of care with my nurse practitioner, Zuleyma Crews. I attest to the above note as dictated by her.
[2020-02-27] MEDS: DEMECLOCYCLINE 150 MG TAB PO SCH ×2 (12:25→20:30)
--- NOTE | 2020-02-27 15:04 | P.CN ---
Psychiatric Consult - . Consult date: 02/27/20 Consult:: 02/27/20 14:56 IDENTIFYING DATA: This patient is a 84-year-old male who currently lives with his in a house's 3 kids and is currently retired. HISTORY OF PRESENT ILLNESS: The patient presented to the hospital for increase in his shortness of breath cough and palpitations. Patient has a history of a lung mass and has been undergoing radiation treatment on and off. Psychiatry was consulted for "MOCA ". Patient was seen at the bedside and was agreeable to speak to engineering technical writer. Patient did appear to be irritable at times and was suspicious of engineering technical writer initially however as the interview progressed patient became more cooperative. Patient did endorse having history of depression stating "I've always been depressed". He was clearly dismissive of engineering technical writer during conversation. He claims that his brought him here however he does not know why. He was fairly preoccupied with discharge. He spoke briefly about his chemotherapy and radiation. He states that his sleep has been poor and appetite has been poor as well. He states that he does have some anxiety has been taking Xanax for it. He was alert and oriented 3 and knew the current president and also was able to spell "world" backwards. Patient had a fair attention span and fair obstruction during cognitive evaluation. At this time patient denies any suicidal or homical ideations, intent or plan. Patient denies any auditory, visual hallucinations and denies any paranoia or delusions. Patients admits to using cigarettes in the past and claims that he quit in 2000. PAST PSYCHIATRIC HISTORY: Patient has a a history of depression/anxiety. Verena ent is on Xanax when necessary in the hospital. Patient denies any previous psychiatric hospitalizations. Patient denies any psychiatric outpatient follow- up. Patient denies any history of suicide attempts in the past. PAST MEDICAL HISTORY: COPD on oxygen, hypertension, GERD, cognitive impairment, BPH, prostatitis. ALLERGIES: as per EMR. CHEMICAL DEPENDENCY HISTORY: as per HPI. FAMILY PSYCHIATRIC/SUBSTANCE USE HISTORY: denies SOCIAL HISTORY: Patient was born and raised in [place], and states that he moved to [place] and [place]. He states that he has a house in [place]. 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 He denied any legal history. He states that he is currently and lives with his in a house and has 3 kids who he does not see regularly. MENTAL STATUS EXAM: General Appearance: Patient appears to be stated age is alert, irritable at times, dismissive. Patient appears to have fair hygiene and grooming wearing hospital gown with poor eye contact. Behavior: Patient is calmly lying in bed without any agitated behavior. Irritable at times. Speech: Patient's speech is fluent and nonpressured. Mood/Affect: Patient reports their mood is "depressed", affect is congruent Suicidality/Homicidality: Patient denies having any suicidal or homicidal ideation intent or plan. Perceptions: Patient denies any visual hallucinations and denies any auditory hallucinations Though content/process: Patient rambles at times, is tangential. Dismissive at times and irritable. Memory and concentration: AOX3, grossly intact for the purposes of this session. Can spell "WORLD" backwards Judgment and insight: Limited IMPRESSIONS: Major depressive disorder, mild Rule out dementia Anxiety disorder unspecified PLAN: -At this time patient DOES NOT meet criteria for inpatient psychiatric admission. -Delirium precautions recommended with patient including - avoiding use of narcotics and PROGRAM ADMIN sedatives, limit anticholinergic medications when possible, frequent re-orientation, minimize use of restraints, open window shades during the day and close them at night -Would recommend the following medication changes/additions: Added Remeron 15 mg daily at bedtime for insomnia/appetite/mood. Added Zoloft 25 mg daily for mood/anxiety. Discontinue Ativan when necessary as this may cause delirium. Can continue minimal dose of Xanax when necessary and also melatonin when necessary. -asbestos hazard abatement worker to gather further history on patient's condition at home and inquire whether patient will need placement versus additional resources at home to help him medically. -Psychiatry will sign off at this point, please contact with any questions.
--- NOTE | 2020-02-27 15:06 | CDI ---
Documentation Clarification Form Date: 02/27/2020 CDS: Miriam Walters RN, CCDS Admit Date: 02/25/2020 Patient Name: Mitch Soria ATTENTION: The Clinical Documentation Specialists (CDI) and [facility] Coding Staff appreciate your assistance in clarifying documentation. Please respond to the clarification below the line at the bottom and electronically sign. The CDI & [facility] Coding staff will review the response and follow-up if needed. Please note: Queries are made part of the Legal Health Record. If you have any questions, please contact the author of this message via ITS. Dr. Sosa, The patient presented with increase in shortness of breath especially with activity. History/Risk Factors: 84-year-old male presents to the ED with worsening shortness of breath especially with activity. Medical History: COPD, Lung Adenocarcinoma, and HTN. Admitting diagnosis Pneumonia Tobacco use: history of tobacco dependence quit in 2000 Home oxygen: past home oxygen Clinical Indicators: 02/24 Admission Vital signs: B/P: 167/97; HR: 100; Temp: 98.0; RR: 18; SpO2 98% 2L nasal cannula 02/25 B/P: 155/84; HR 112; Temp: 98.2; RR: 22; SpO2 90% 4L nasal cannula 02/24 H&P Lung/Breathing assessment: Respiratory rate increased, decreased breath sounds prolonged expiration some wheezing. Treatment: Started 02/24 Rocpehin ivpb; Started 02/26 Declomycin oral Breathing Medication/Treatments: 02/24 Duoneb QID and PRN; Pulmicort 2L to 4L nasal cannula In your professional opinion, can you please clarify if these findings signify one of the following conditions? Acute Respiratory Failure Acute on Chronic Respiratory Failure Other Diagnosis, please specify Unable to determine Specificity: If known, further specify (if known): With hypercapnia? (pCO2 >50 and pH <7.35) With hypoxia? (pO2 <60 mm Hg or SpO2 <91% on room air) (Last Query Form Revision: February 2019) Unable to determine MTDD
[2020-02-27] MEDS: SERTRALINE 25 MG TAB PO SCH (18:03)
[2020-02-27] MEDS: MIRTAZAPINE 15 MG TAB PO SCH (20:30)
--- NOTE | 2020-02-27 21:23 | P.PN ---
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 Patient has long-standing history of COPD. Had been on oxygen. Chronic stable medical conditions include hypertension, some cognitive impairment, GERD, BPH, osteoarthritis. Was admitted in August of this year with pneumonia. 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 Patient apparently did get some radiation treatment by Dr. Loyd Roldan. It's unclear from the patient's history as to why he is not able to follow with oncologist. Patient been having increasing hot off and on for last 2 months. Intermittent. Became more persistent Patient did bring up phlegm that is clear. Increase in shortness of breath especially with activity. Appetite is okay. A bit tired rundown. admitted with multilobar pneumonia, COPD exacerbation. Started on IV ceftriaxone bronchodilators. Today-sitting at the edge of the bed. A bit tired. Did tolerate some diet. Review of systems: Was done for constitutional, cardiovascular, GI, pulmonary. relevant finding as above Active Medications Acetaminophen (Tylenol Tab) 650 mg PO Q6HR PRN PRN Reason: Mild Pain or Fever > 100.5 Al Hydroxide/Mg Hydroxide (Maalox) 15 ml PO Q6HR PRN PRN Reason: Indigestion Albuterol/Ipratropium (Duoneb 0.5 Mg-3 Mg/3 Ml Soln) 3 ml INHALATION RT-QID [facility] Last Admin: 02/27/20 19:15 Dose: 3 ml Documented by: Albuterol/Ipratropium (Duoneb 0.5 Mg-3 Mg/3 Ml Soln) 3 ml INHALATION RT-QID PRN PRN Reason: Shortness Of Breath Alprazolam (Xanax) 0.25 mg PO Q6HR PRN PRN Reason: Anxiety Amlodipine Besylate (Norvasc) 5 mg PO DAILY [facility] Last Admin: 02/27/20 08:49 Dose: 5 mg Documented by: Budesonide (Pulmicort) 0.5 mg INHALATION RT-BID [facility] Last Admin: 02/27/20 19:15 Dose: 0.5 mg Documented by: Calcium Carbonate/Glycine (Tums) 1,000 mg PO Q4HR PRN PRN Reason: Dyspepsia Demeclocycline HCl (Declomycin) 150 mg PO BID [facility] Last Admin: 02/27/20 20:30 Dose: 150 mg Documented by: Enoxaparin Sodium (Lovenox) 40 mg SQ DAILY [facility] Last Admin: 02/27/20 08:48 Dose: 40 mg Documented by: Ferrous Sulfate (Feosol) 325 mg PO DAILY [facility] Last Admin: 02/27/20 08:49 Dose: 325 mg Documented by: Formoterol Fumarate (Perforomist) 20 mcg INHALATION RT-BID [facility] Last Admin: 02/27/20 19:15 Dose: 20 mcg Documented by: Guaifenesin (Mucinex) 1,200 mg PO Q12HR [facility] Last Admin: 02/27/20 20:30 Dose: 1,200 mg Documented by: Ceftriaxone Sodium 2 gm/ (Sodium Chloride) 50 mls @ 100 mls/hr IVPB Q24HR [facility] Stop: 02/28/20 09:01 Last Admin: 02/27/20 08:52 Dose: 100 mls/hr Documented by: Lactulose (Cephulac) 20 gm PO DAILY PRN PRN Reason: Constipation Losartan Potassium (Cozaar) 50 mg PO DAILY [facility] Last Admin: 02/27/20 08:49 Dose: 50 mg Documented by: Magnesium Hydroxide (Milk Of Magnesia) 2,400 mg PO DAILY PRN PRN Reason: Constipation Magnesium Oxide (Mag-Ox) 400 mg PO DAILY [facility] Last Admin: 02/27/20 08:49 Dose: 400 mg Documented by: Melatonin (Melatonin) 3 mg PO HS PRN PRN Reason: Insomnia Last Admin: 02/27/20 01:28 Dose: 3 mg Documented by: Mirtazapine (Remeron) 15 mg PO HS [facility] Last Admin: 02/27/20 20:30 Dose: 15 mg Documented by: Miscellaneous Information (Pneumonia Protocol Utilized) 1 each PO ONCE PRN PRN Reason: Per Protocol Multivitamins (Theragran) 1 each PO DAILY [facility] Last Admin: 02/27/20 08:48 Dose: 1 each Documented by: Naloxone HCl (Narcan) 0.2 mg IV Q2M PRN PRN Reason: Opioid Reversal Ondansetron HCl (Zofran) 4 mg IVP Q8HR PRN PRN Reason: Nausea And Vomiting Sertraline HCl (Zoloft) 25 mg PO DAILY [facility] Last Admin: 02/27/20 18:03 Dose: 25 mg Documented by: Sodium Biphosphate/Sodium Phosphate (Fleet Adult) 133 ml RECTAL ONCE PRN PRN Reason: Constipation Physical examination: VITAL SIGNS: 98.2, 90, 16, 100 765, 93% on 4 L GENERAL: Sitting of the edge of the bed, awake EYES: Pupils equal. Conjunctiva normal. HEENT: External appearance of nose and ears normal, oral cavity grossly normal. NECK: JVD not raised; masses not palpable. HEART: First and second heart sounds are normal; no edema. LUNGS: Respiratory rate increased, decreased breath sounds prolonged expiration some wheezing. ABDOMEN: Soft, nontender, liver spleen not palpable, no masses palpable. PSYCH: , answering questions MUSCULAR skeletal: Evidence of OA INVESTIGATIONS, reviewed in the clinical context: White count 6.5 hemoglobin 12 sodium 125 potassium 4.8 bun 7 creatinine 0.55 Previous testing White count 8.1 hemoglobin 11.7 platelets 376 potassium 4.4 sodium 123 creatinine 0.58 serum osmolality 258 Troponin I 0.012 proBNP 259 EKG tracing personally reviewed by me-normal sinus rhythm, Chest x-ray film personally reviewed by me-she especially right-sided mass with infiltrates and mediastinum pulled the right Chest CTA-negative for PE. Abnormal large density in the right lung. Multiple nodules in both the sides. 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 Patient has received radiation treatment. Unclear about his follow-up with oncology. -Essential hypertension -Anxiety not otherwise specified -Mild cognitive impairment. We'll do a full assessment of with [facility] cognitive-assessment test. -GERD -BPH -Primary osteoarthritis -Acute COPD exacerbation in an ex-smoker -Question GI bleed with dark stools. -Patient scored 13 out of 30 on the MOCA assessment done by speech. Plan: Did consult psychiatry. Ativan is discontinued. The added Remeron and Zoloft. Other medications to continue.
[2020-02-28] MEDS: IPRATROPIUM-ALBUTEROL 3 ML NEB INHALATION SCH ×4 (08:22→20:45)
[2020-02-28] MEDS: FORMOTEROL FUMARATE 20 MCG/2 ML NEBU INHALATION SCH ×2 (08:22→20:45)
[2020-02-28] MEDS: BUDESONIDE 0.5 MG/2 ML NEBU INHALATION SCH ×2 (08:22→20:45)
[2020-02-28] MEDS: LOSARTAN 50 MG TAB PO SCH (09:11)
[2020-02-28] MEDS: ENOXAPARIN 40 MG/0.4 ML SYRINGE SQ SCH (09:12)
[2020-02-28] MEDS: amLODIPine 5 MG TAB PO SCH (09:12)
[2020-02-28] MEDS: guaiFENesin 600 MG TABLET.ER PO SCH ×2 (09:12→20:33)
[2020-02-28] MEDS: FERROUS SULFATE 325 MG TAB PO SCH (09:12)
[2020-02-28] MEDS: MAGNESIUM OXIDE 400 MG TAB PO SCH (09:12)
[2020-02-28] MEDS: DEMECLOCYCLINE 150 MG TAB PO SCH ×2 (09:12→20:33)
[2020-02-28] MEDS: MULTIVITAMINS, THERA 1 EACH TAB PO SCH (09:12)
[2020-02-28] MEDS: SERTRALINE 25 MG TAB PO SCH (09:12)
--- NOTE | 2020-02-28 11:43 | P.PN ---
Subjective Progress Note Date: 02/28/20 Principal diagnosis: Palpitations This is a very pleasant 84-year-old gentleman who follows with Dr. Jansen as his primary care provider. He has a history of hypertension, hearing disorder, prostate disorder, anxiety. He also has a history of tonic tobacco dependence however quit in 2000. He follows with Dr. Huff in our office for COPD. 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 PET scan revealed extensive consolidation and opacity throughout the right upper and right middle lobes with areas of variable mild to intense uptake. The most intense uptake is in the right upper lobe corresponding to the spiculated mass seen back on 01/29/2019. Smaller areas of borderline moderate uptake in the right midlung corresponding to the nodule seen at that time. Additional bilateral pulmonary nodules measuring up to 2.6 cm on the right and 1.8 cm on the left show mild uptake that are suspicious for progressive gradual enlargement. No other metastatic disease is evident. He has undergone 10 radiation treatments and unfortunately had missed appointments with Dr. Choe and has not been initiated on any chemotherapy or other treatments at this time. He had recently been back in the oncology office and states he does have appointments scheduled. He has somewhat of a poor historian. He presented to the emergency room this morning with complaints of palpitations and elevated heart rate. He states usually it subsides after a few minutes of rest but was not slowing down in the presented for the same. He denied any chest pain, no worsening shortness of breath, no cough or congestion. No hemoptysis. No dizziness, lightheadedness. He states he was short of breath while his heart rate was high but is comfortable now at rest. He is currently in sinus rhythm. White count 8.1. Hemoglobin 11.7. Sodium 123. Potassium 4.4. Creatinine 0.58. Troponin negative times one. ProBNP 259. Chest x-ray shows masslike areas of infiltrate throughout the right lung. Additional patchy density in the left medial lung base. His 0.9 normal sinus rate 75 ML's per hour. He's been initiated on ceftriaxone. He is on DuoNeb inhalations, Pulmicort and Perforomist inhalations. Lovenox for DVT prophylaxis. CT angiogram pending. CoVID 19 screen pending. The patient is seen today 02/26/2020 in follow-up on the regular medical floor. He is currently resting comfortably in bed. Awake and alert in no acute distress. No further palpitations. Currently in sinus rhythm. CT angiogram ruled out pulmonary embolism. There is progression of lung carcinoma, metastatic disease. Today's chest x-ray continues to show underlying mass and extensive airspace disease/pneumonia spelled the right lung. Similar compared to previous. Possible nodularity the left hilum and left heart margin. Evide nce of COPD. He is maintaining O2 saturations in the low 90s on 2 L/m per nasal cannula. He's been afebrile. Blood culture reveals no growth. Sputum culture pending. Sodium 125. Potassium 4.8. Chloride 92. Bicarb 23. Creatinine 0.55. Glucose 118. TSH 1.73. Urine osmolality 249. Serum osmolality 258. Coronavirus not detected. The patient is seen today 02/27/2020 in follow-up on the regular medical floor. He is currently sitting up in a chair at the bedside. Awake and alert in no acute distress. Maintaining good O2 saturations in the upper 90s on 4 L/m per nasal cannula. She's been afebrile. Blood and sputum cultures reveal no growth. Stool for occult blood was negative. He is continued on DuoNeb inhalations, Pulmicort and Perforomist inhalations, antibiotics in the form of ceftriaxone. Enoxaparin for DVT prophylaxis. The patient is seen today 02/28/2020 in follow-up on the regular medical floor. He remains awake and alert in no acute distress. Currently sitting up at the bedside. He is maintaining O2 saturation in the 90s on 4 L/m per nasal cannula. Blood and sputum cultures reveal no growth. Last sodium 125. Remains on fluid restrictions. Objective - Vital Signs Vital signs: Vital Signs Temp 98.0 F 02/28/20 07:00 Pulse 98 02/28/20 08:45 Resp 16 02/28/20 08:30 BP 136/70 02/28/20 07:00 Pulse Ox 94 L 02/28/20 08:22 Intake & Output 02/27/20 02/28/20 02/28/20 18:59 06:59 18:59 Intake Total 100 350 Balance 100 350 Weight 68.039 kg Intake: Oral 100 350 Other: Voiding Method Urinal Urinal Urinal # Voids 3 2 # Bowel Movements 1 - Exam GENERAL EXAM: Alert, pleasant 84-year-old gentleman, on 4 L nasal cannula, comfortable in no apparent distress. HEAD: Normocephalic. EYES: Normal reaction of pupils, equal size. NOSE: Clear with pink turbinates. THROAT: No erythema or exudates. NECK: No masses, no JVD. CHEST: No chest wall deformity. LUNGS: Equal air entry with bilateral scattered rhonchi right greater than left. CVS: S1 and S2 normal with no audible murmur, regular rhythm. ABDOMEN: No hepatosplenomegaly, normal bowel sounds, no guarding or rigidity. SPINE: No scoliosis or deformity SKIN: No rashes CENTRAL NERVOUS SYSTEM: No focal deficits, tone is normal in all 4 extremities. EXTREMITIES: There is no peripheral edema. No clubbing, no cyanosis. Peripheral pulses are intact. - Labs CBC & Chem 7: 02/26/20 09:37 02/26/20 09:37 Labs: Microbiology - Last 24 Hours (Table) 02/25/20 09:03 Blood Culture - Preliminary Blood No Growth after 72 hours 02/25/20 11:10 Gram Stain - Final Sputum Sputum Culture - Final Assessment and Plan Assessment: 1 Palpitations of unclear etiology, currently in normal sinus rhythm with occasional PACs, echocardiogram revealed preserved left ventricular systolic function with ejection fraction 50-55% 2 Adenocarcinoma of the lung, diagnosed in August 2019, PET scan revealed extensive consolidation opacity throughout the right upper and right middle lobes with areas of variable mild to intense uptake. This intense uptake in the right upper lobe corresponding to the spiculated mass seen back on 01/29/2019. Smaller areas of underlying moderate uptake in the right midlung corresponding nodule seen at that time. Additional bilateral pulmonary nodules measuring up to 2.6 cm on the right and 1.8 cm on the left show mild uptake but her suspicious given progressive gradual enlargement. No other metastatic disease was evident. Status post radiation treatment thus far. 3 Former smoker quit in 2000 4 Hypoosmolar hyponatremia with current sodium 125 5 Hypertension 6 Hearing disorder 7 History of anxiety 8 Poor historian 9 Benign prostatic hyperplasia Plan: The patient was seen and evaluated by Dr. Huff Continue fluid restrictions decreased from 1500 ML's to 1200 ML per day Continue bronchodilators and empiric antibiotics Chest x-ray and labs in a.m. We will continue to follow and make further recommendations based on his clinical status I, the cosigning physician, performed a history & physical examination of the patient. Lungs sounds with bilateral scattered rhonchi right greater than left. Maintaining good O2 saturations in the 90s on 4 L/m per nasal cannula. I discussed the assessment and plan of care with my nurse practitioner, Zuleyma Crews. I attest to the above note as dictated by her.
--- NOTE | 2020-02-28 12:53 | P.PN ---
Progress Note - Text Progress Note Date: 02/28/20 Interval History: Patient was seen today for psychiatric follow-up for the patient's irritability and depression. Patient appeared to be an brighter mood today and was sleeping on the bed and able to communicate appropriately with the caption writer today. He states that he is doing better with regards to his breathing and also his mood. Patient appeared to be less irritable today. He spoke about his girlfriend who he has not heard from since being in the hospital. He denied any overnight complaints and states that he did sleep a bit better approximately 3 hours last night however claims that his pain and reading interruptive to sleep. It is a fair appetite. At this time patient denies any suicidal or homical ideations, intent or plan. Patient denies any auditory, visual hallucinations and denies any paranoia or delusions. Patient denies any side effects from the medications and has been compliant with meds. Mental Status Exam: General Appearance: Patient appears to be stated age is alert, less irritable today and more cooperative. Patient appears to have fair hygiene and grooming wearing hospital gown with better eye contact. Behavior: Patient is calmly lying in bed without any agitated behavior. More cooperative today Speech: Patient's speech is fluent and nonpressured. Mood/Affect: Patient reports their mood is "better", affect is congruent Suicidality/Homicidality: Patient denies having any suicidal or homicidal ideation intent or plan. Perceptions: Patient denies any visual hallucinations and denies any auditory hallucinations Though content/process: Patient rambles at times, is tangential. Improvement in thought content and process. Logical. Future oriented. Memory and concentration: AOX3, grossly intact for the purposes of this session. Judgment and insight: Limited, improving midly Assessment Major depressive disorder, mild Rule out dementia Anxiety disorder unspecified Plan: -At this time patient DOES NOT meet criteria for inpatient psychiatric admission. -Delirium precautions recommended with patient including - avoiding use of narcotics and [employer] sedatives, limit anticholinergic medications when possible, frequent re-orientation, minimize use of restraints, open window shades during the day and close them at night -Would recommend the following medication changes/additions: Continue with Remeron 15 mg daily at bedtime for insomnia/appetite/mood. Continue with Zoloft 25 mg daily for mood/anxiety, if patient becomes depressed/anxious or more irritable than this dose can be increased to 50 mg daily. Can continue minimal dose of Xanax when necessary and also melatonin when necessary. Melatonin 3 mg daily at bedtime for insomnia. -vegetable worker to gather further history on patient's condition at home and inquire whether patient will need placement versus additional resources at home to help him medically. -Psychiatry will sign off at this point, please contact with any questions.
--- NOTE | 2020-02-28 18:02 | P.PN ---
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 Patient has long-standing history of COPD. Had been on oxygen. Chronic stable medical conditions include hypertension, some cognitive impairment, GERD, BPH, osteoarthritis. Was admitted in August of this year with pneumonia. 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 Patient apparently did get some radiation treatment by Dr. Anthony Roldan. It's unclear from the patient's history as to why he is not able to follow with oncologist. Patient been having increasing hot off and on for last 2 months. Intermittent. Became more persistent Patient did bring up phlegm that is clear. Increase in shortness of breath especially with activity. Appetite is okay. A bit tired rundown. admitted with multilobar pneumonia, COPD exacerbation. Started on IV ceftriaxone bronchodilators. Patient scored 18 out of 30 on the [place] assessment test. Seen by psychiatry. Ativan discontinued. Placed on Zoloft and Remeron. Today-patient intubated more restful today.. Eating 100% of his lunch and supper today. Review of systems: Was done for constitutional, cardiovascular, GI, pulmonary. relevant finding as above Active Medications Acetaminophen (Tylenol Tab) 650 mg PO Q6HR PRN PRN Reason: Mild Pain or Fever > 100.5 Al Hydroxide/Mg Hydroxide (Maalox) 15 ml PO Q6HR PRN PRN Reason: Indigestion Albuterol/Ipratropium (Duoneb 0.5 Mg-3 Mg/3 Ml Soln) 3 ml INHALATION RT-QID [facility] Last Admin: 02/28/20 15:58 Dose: 3 ml Documented by: Albuterol/Ipratropium (Duoneb 0.5 Mg-3 Mg/3 Ml Soln) 3 ml INHALATION RT-QID PRN PRN Reason: Shortness Of Breath Alprazolam (Xanax) 0.25 mg PO Q6HR PRN PRN Reason: Anxiety Amlodipine Besylate (Norvasc) 5 mg PO DAILY [facility] Last Admin: 02/28/20 09:12 Dose: 5 mg Documented by: Budesonide (Pulmicort) 0.5 mg INHALATION RT-BID [facility] Last Admin: 02/28/20 08:22 Dose: 0.5 mg Documented by: Calcium Carbonate/Glycine (Tums) 1,000 mg PO Q4HR PRN PRN Reason: Dyspepsia Demeclocycline HCl (Declomycin) 150 mg PO BID [facility] Last Admin: 02/28/20 09:12 Dose: 150 mg Documented by: Enoxaparin Sodium (Lovenox) 40 mg SQ DAILY [facility] Last Admin: 02/28/20 09:12 Dose: 40 mg Documented by: Ferrous Sulfate (Feosol) 325 mg PO DAILY [facility] Last Admin: 02/28/20 09:12 Dose: 325 mg Documented by: Formoterol Fumarate (Perforomist) 20 mcg INHALATION RT-BID [facility] Last Admin: 02/28/20 08:22 Dose: 20 mcg Documented by: Guaifenesin (Mucinex) 1,200 mg PO Q12HR [facility] Last Admin: 02/28/20 09:12 Dose: 1,200 mg Documented by: Lactulose (Cephulac) 20 gm PO DAILY PRN PRN Reason: Constipation Losartan Potassium (Cozaar) 50 mg PO DAILY [facility] Last Admin: 02/28/20 09:11 Dose: 50 mg Documented by: Magnesium Hydroxide (Milk Of Magnesia) 2,400 mg PO DAILY PRN PRN Reason: Constipation Magnesium Oxide (Mag-Ox) 400 mg PO DAILY [facility] Last Admin: 02/28/20 09:12 Dose: 400 mg Documented by: Melatonin (Melatonin) 3 mg PO [facility] Mirtazapine (Remeron) 15 mg PO HS [facility] Last Admin: 02/27/20 20:30 Dose: 15 mg Documented by: Miscellaneous Information (Pneumonia Protocol Utilized) 1 each PO ONCE PRN PRN Reason: Per Protocol Multivitamins (Theragran) 1 each PO DAILY [facility] Last Admin: 02/28/20 09:12 Dose: 1 each Documented by: Naloxone HCl (Narcan) 0.2 mg IV Q2M PRN PRN Reason: Opioid Reversal Ondansetron HCl (Zofran) 4 mg IVP Q8HR PRN PRN Reason: Nausea And Vomiting Sertraline HCl (Zoloft) 25 mg PO DAILY [facility] Last Admin: 02/28/20 09:12 Dose: 25 mg Documented by: Sodium Biphosphate/Sodium Phosphate (Fleet Adult) 133 ml RECTAL ONCE PRN PRN Reason: Constipation Physical examination: VITAL SIGNS: 98.4, 85, 20, 140/62, 94% room air GENERAL: Sitting up, awake EYES: Pupils equal. Conjunctiva normal. HEENT: External appearance of nose and ears normal, oral cavity grossly normal. NECK: JVD not raised; masses not palpable. HEART: First and second heart sounds are normal; no edema. LUNGS: Respiratory rate increased, decreased breath sounds . ABDOMEN: Soft, nontender, liver spleen not palpable, no masses palpable. PSYCH: , answering questions MUSCULAR skeletal: Evidence of OA INVESTIGATIONS, reviewed in the clinical context: White count 6.5 hemoglobin 12 sodium 125 potassium 4.8 bun 7 creatinine 0.55 Previous testing White count 8.1 hemoglobin 11.7 platelets 376 potassium 4.4 sodium 123 creatinine 0.58 serum osmolality 258 Troponin I 0.012 proBNP 259 EKG tracing personally reviewed by me-normal sinus rhythm, Chest x-ray film personally reviewed by me-she especially right-sided mass with infiltrates and mediastinum pulled the right Chest CTA-negative for PE. Abnormal large density in the right lung. Multiple nodules in both the sides. 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 Patient has received radiation treatment. Unclear about his follow-up with oncology. -Essential hypertension -Anxiety not otherwise specified -Mild cognitive impairment. We'll do a full assessment of with [facility] cognitive-assessment test. -GERD -BPH -Primary osteoarthritis -Acute COPD exacerbation in an ex-smoker -Question GI bleed with dark stools. -Patient scored 13 out of 30 on the MOCA assessment done by speech. Plan: Continue with fluid restriction. Repeat labs in the morning. Antibodies to continue. Repeat serum osmolality.
[2020-02-28] MEDS: MIRTAZAPINE 15 MG TAB PO SCH (20:33)
[2020-02-28] MEDS: MELATONIN 3 MG TABLET PO SCH (20:33)
[2020-02-29] MEDS: IPRATROPIUM-ALBUTEROL 3 ML NEB INHALATION SCH ×5 (07:05→19:44)
[2020-02-29] MEDS: FORMOTEROL FUMARATE 20 MCG/2 ML NEBU INHALATION SCH ×2 (07:06→19:44)
[2020-02-29] MEDS: BUDESONIDE 0.5 MG/2 ML NEBU INHALATION SCH ×2 (07:06→19:44)
[2020-02-29] MEDS: SERTRALINE 25 MG TAB PO SCH (08:28)
[2020-02-29] MEDS: LOSARTAN 50 MG TAB PO SCH (08:28)
[2020-02-29] MEDS: guaiFENesin 600 MG TABLET.ER PO SCH ×2 (08:28→21:37)
[2020-02-29] MEDS: MAGNESIUM OXIDE 400 MG TAB PO SCH (08:28)
[2020-02-29] MEDS: amLODIPine 5 MG TAB PO SCH (08:28)
[2020-02-29] MEDS: FERROUS SULFATE 325 MG TAB PO SCH (08:28)
[2020-02-29] MEDS: MULTIVITAMINS, THERA 1 EACH TAB PO SCH (08:28)
[2020-02-29] MEDS: DEMECLOCYCLINE 150 MG TAB PO SCH ×2 (08:28→21:37)
[2020-02-29] MEDS: ENOXAPARIN 40 MG/0.4 ML SYRINGE SQ SCH (08:28)
--- NOTE | 2020-02-29 08:32 | XR ---
EXAMINATION TYPE: XR chest 1V portable DATE OF EXAM: 02/29/2020 CLINICAL HISTORY: Right lung pneumonia TECHNIQUE: Upright portable view of the chest obtained COMPARISON: 02/26/2020 chest radiograph. CTA chest 02/25/2020 FINDINGS: Redemonstrated right diffuse airspace opacities, right masslike consolidation, and bilater al pulmonary nodules not significantly changed versus 02/26/2020. Right-sided volume loss. There is non visualization of the right costophrenic angle. No pneumothorax. The osseous structures are intact. IMPRESSION: Right lung mass, diffuse right airspace disease, and bilateral pulmonary nodules, unchang ed versus 02/26/2020.
[2020-02-29 08:52] LABS: ALT 19 U/L (4-49); AST 34 U/L (17-59); African American GFR (CKD) >90 (>60 ml/min/1.73 sqM); Alkaline Phosphatase 77 U/L (38-126); Anion Gap 9 mmol/L; Blood Urea Nitrogen 11 mg/dL (9-20); Calcium 8.6 mg/dL (8.4-10.2); Carbon Dioxide 25 mmol/L (22-30); Chloride 89 mmol/L (98-107); Glucose 91 mg/dL (74-99); Non-African American GFR(CKD) >90 (>60 ml/min/1.73 sqM); Potassium 4.8 mmol/L (3.5-5.1); Sodium 123 mmol/L (137-145); Total Bilirubin 0.4 mg/dL (0.2-1.3); Total Protein 5.9 g/dL (6.3-8.2)
--- NOTE | 2020-02-29 12:12 | P.PN ---
Subjective Progress Note Date: 02/29/20 Principal diagnosis: Palpitations This is a very pleasant 84-year-old gentleman who follows with Dr. Jansen as his primary care provider. He has a history of hypertension, hearing disorder, prostate disorder, anxiety. He also has a history of tonic tobacco dependence however quit in 2000. He follows with Dr. Huff in our office for COPD. 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 PET scan revealed extensive consolidation and opacity throughout the right upper and right middle lobes with areas of variable mild to intense uptake. The most intense uptake is in the right upper lobe corresponding to the spiculated mass seen back on 01/29/2019. Smaller areas of borderline moderate uptake in the right midlung corresponding to the nodule seen at that time. Additional bilateral pulmonary nodules measuring up to 2.6 cm on the right and 1.8 cm on the left show mild uptake that are suspicious for progressive gradual enlargement. No other metastatic disease is evident. He has undergone 10 radiation treatments and unfortunately had missed appointments with Dr. Choe and has not been initiated on any chemotherapy or other treatments at this time. He had recently been back in the oncology office and states he does have appointments scheduled. He has somewhat of a poor historian. He presented to the emergency room this morning with complaints of palpitations and elevated heart rate. He states usually it subsides after a few minutes of rest but was not slowing down in the presented for the same. He denied any chest pain, no worsening shortness of breath, no cough or congestion. No hemoptysis. No dizziness, lightheadedness. He states he was short of breath while his heart rate was high but is comfortable now at rest. He is currently in sinus rhythm. White count 8.1. Hemoglobin 11.7. Sodium 123. Potassium 4.4. Creatinine 0.58. Troponin negative times one. ProBNP 259. Chest x-ray shows masslike areas of infiltrate throughout the right lung. Additional patchy density in the left medial lung base. His 0.9 normal sinus rate 75 ML's per hour. He's been initiated on ceftriaxone. He is on DuoNeb inhalations, Pulmicort and Perforomist inhalations. Lovenox for DVT prophylaxis. CT angiogram pending. CoVID 19 screen pending. The patient is seen today 02/26/2020 in follow-up on the regular medical floor. He is currently resting comfortably in bed. Awake and alert in no acute distress. No further palpitations. Currently in sinus rhythm. CT angiogram ruled out pulmonary embolism. There is progression of lung carcinoma, metastatic disease. Today's chest x-ray continues to show underlying mass and extensive airspace disease/pneumonia spelled the right lung. Similar compared to previous. Possible nodularity the left hilum and left heart margin. Evide nce of COPD. He is maintaining O2 saturations in the low 90s on 2 L/m per nasal cannula. He's been afebrile. Blood culture reveals no growth. Sputum culture pending. Sodium 125. Potassium 4.8. Chloride 92. Bicarb 23. Creatinine 0.55. Glucose 118. TSH 1.73. Urine osmolality 249. Serum osmolality 258. Coronavirus not detected. The patient is seen today 02/27/2020 in follow-up on the regular medical floor. He is currently sitting up in a chair at the bedside. Awake and alert in no acute distress. Maintaining good O2 saturations in the upper 90s on 4 L/m per nasal cannula. She's been afebrile. Blood and sputum cultures reveal no growth. Stool for occult blood was negative. He is continued on DuoNeb inhalations, Pulmicort and Perforomist inhalations, antibiotics in the form of ceftriaxone. Enoxaparin for DVT prophylaxis. The patient is seen today 02/28/2020 in follow-up on the regular medical floor. He remains awake and alert in no acute distress. Currently sitting up at the bedside. He is maintaining O2 saturation in the 90s on 4 L/m per nasal cannula. Blood and sputum cultures reveal no growth. Last sodium 125. Remains on fluid restrictions. Patient is seen today 02/29/2020 in follow-up on the regular medical floor. He is resting comfortably in bed. Somewhat drowsy. Denies any shortness of breath, cough or congestion. Follow-up chest x-ray continues to revealed a right lung mass, diffuse right airspace disease and bilateral pulmonary pneumonia nodules. Unchanged compared to 02/26/2020. Blood and sputum cultures reveal no growth. Sodium 123. Potassium 4.8. Creatinine 0.59. Objective - Vital Signs Vital signs: Vital Signs Temp 98.4 F 02/29/20 07:00 Pulse 88 02/29/20 11:40 Resp 20 02/29/20 09:27 BP 110/65 02/29/20 07:00 Pulse Ox 93 L 02/29/20 07:00 Intake & Output 02/28/20 02/29/20 02/29/20 18:59 06:59 18:59 Intake Total 350 1020 Output Total 400 400 Balance -50 1020 -400 Intake: Oral 350 1020 Output: Urine 400 400 Other: Voiding Method Urinal Urinal Urinal # Voids 1 - Exam GENERAL EXAM: Drowsy, arousable,, pleasant 84-year-old gentleman, on 4 L nasal cannula, comfortable in no apparent distress. HEAD: Normocephalic. EYES: Normal reaction of pupils, equal size. NOSE: Clear with pink turbinates. THROAT: No erythema or exudates. NECK: No masses, no JVD. CHEST: No chest wall deformity. LUNGS: Equal air entry with bilateral scattered rhonchi right greater than left. CVS: S1 and S2 normal with no audible murmur, regular rhythm. ABDOMEN: No hepatosplenomegaly, normal bowel sounds, no guarding or rigidity. SPINE: No scoliosis or deformity SKIN: No rashes CENTRAL NERVOUS SYSTEM: No focal deficits, tone is normal in all 4 extremities. EXTREMITIES: There is no peripheral edema. No clubbing, no cyanosis. Peripheral pulses are intact. - Labs CBC & Chem 7: 02/26/20 09:37 02/29/20 07:52 Labs: Abnormal Lab Results - Last 24 Hours (Table) 02/29/20 Range/Units 07:52 Sodium 123 L (137-145) mmol/L Chloride 89 L (98-107) mmol/L Creatinine 0.59 L (0.66-1.25) mg/dL Osmolality 256 L (280-301) mosm/kg Total Protein 5.9 L (6.3-8.2) g/dL Albumin 3.0 L (3.5-5.0) g/dL Microbiology - Last 24 Hours (Table) 02/25/20 09:03 Blood Culture - Preliminary Blood No Growth after 96 hours Assessment and Plan Assessment: 1 Palpitations of unclear etiology, currently in normal sinus rhythm with occasional PACs, echocardiogram revealed preserved left ventricular systolic function with ejection fraction 50-55% 2 Adenocarcinoma of the lung, diagnosed in August 2019, PET scan revealed extensive consolidation opacity throughout the right upper and right middle lobes with areas of variable mild to intense uptake. This intense uptake in the right upper lobe corresponding to the spiculated mass seen back on 01/29/2019. Smaller areas of underlying moderate uptake in the right midlung corresponding nodule seen at that time. Additional bilateral pulmonary nodules measuring up to 2.6 cm on the right and 1.8 cm on the left show mild uptake but her suspicious given progressive gradual enlargement. No other metastatic disease was evident. Status post radiation treatment thus far. 3 Former smoker quit in 2000 4 Hypoosmolar hyponatremia with current sodium 123 5 Hypertension 6 Hearing disorder 7 History of anxiety 8 Poor historian 9 Benign prostatic hyperplasia Plan: The patient was seen and evaluated by Dr. Huff Chest x-ray and labs reviewed Remeron discontinued due to drowsiness Continue fluid restrictions of 1200 ML per day Continue bronchodilators and empiric antibiotics We will continue to follow and make further recommendations based on his clinica l status I, the cosigning physician, performed a history & physical examination of the patient. Lungs sounds with bilateral scattered rhonchi right greater than left. Maintaining good O2 saturations in the 90s on 4 L/m per nasal cannula. I discussed the assessment and plan of care with my nurse practitioner, Zuleyma Crews. I attest to the above note as dictated by her.
[2020-02-29] MEDS: MELATONIN 3 MG TABLET PO SCH (21:37)
--- NOTE | 2020-02-29 21:43 | P.PN ---
Progress Note - Text Progress Note Date: 02/29/20 Chief Complaint: Shortness of breath History of presenting complaint: This is a very pleasant 84-year-old patient of Dr. 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 Machado. Patient has long-standing history of COPD. Had been on oxygen. Chronic stable medical conditions include hypertension, some cognitive impairment, GERD, BPH, osteoarthritis. Was admitted in August of this year with pneumonia. 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 Patient apparently did get some radiation treatment by Dr. Anthony Roldan. It's unclear from the patient's history as to why he is not able to follow with oncologist. Patient been having increasing hot off and on for last 2 months. Intermittent. Became more persistent Patient did bring up phlegm that is clear. Increase in shortness of breath especially with activity. Appetite is okay. A bit tired rundown. admitted with multilobar pneumonia, COPD exacerbation. Started on IV ceftriaxone bronchodilators. Patient scored 18 out of 30 on the [place] assessment test. Seen by psychiatry. Ativan discontinued. Placed on Zoloft and Remeron. Today-resting. Oral intake good. Communicating.. Review of systems: Was done for constitutional, cardiovascular, GI, pulmonary. relevant finding as above Active Medications Acetaminophen (Tylenol Tab) 650 mg PO Q6HR PRN PRN Reason: Mild Pain or Fever > 100.5 Al Hydroxide/Mg Hydroxide (Maalox) 15 ml PO Q6HR PRN PRN Reason: Indigestion Albuterol/Ipratropium (Duoneb 0.5 Mg-3 Mg/3 Ml Soln) 3 ml INHALATION RT-QID [facility] Last Admin: 02/29/20 19:44 Dose: 3 ml Documented by: Albuterol/Ipratropium (Duoneb 0.5 Mg-3 Mg/3 Ml Soln) 3 ml INHALATION RT-QID PRN PRN Reason: Shortness Of Breath Alprazolam (Xanax) 0.25 mg PO Q6HR PRN PRN Reason: Anxiety Amlodipine Besylate (Norvasc) 5 mg PO DAILY [facility] Last Admin: 02/29/20 08:28 Dose: 5 mg Documented by: Budesonide (Pulmicort) 0.5 mg INHALATION RT-BID [facility] Last Admin: 02/29/20 19:44 Dose: 0.5 mg Documented by: Calcium Carbonate/Glycine (Tums) 1,000 mg PO Q4HR PRN PRN Reason: Dyspepsia Demeclocycline HCl (Declomycin) 150 mg PO BID [facility] Last Admin: 02/29/20 21:37 Dose: 150 mg Documented by: Enoxaparin Sodium (Lovenox) 40 mg SQ DAILY [facility] Last Admin: 02/29/20 08:28 Dose: 40 mg Documented by: Ferrous Sulfate (Feosol) 325 mg PO DAILY [facility] Last Admin: 02/29/20 08:28 Dose: 325 mg Documented by: Formoterol Fumarate (Perforomist) 20 mcg INHALATION RT-BID [facility] Last Admin: 02/29/20 19:44 Dose: 20 mcg Documented by: Guaifenesin (Mucinex) 1,200 mg PO Q12HR [facility] Last Admin: 02/29/20 21:37 Dose: 1,200 mg Documented by: Lactulose (Cephulac) 20 gm PO DAILY PRN PRN Reason: Constipation Losartan Potassium (Cozaar) 50 mg PO DAILY [facility] Last Admin: 02/29/20 08:28 Dose: 50 mg Documented by: Magnesium Hydroxide (Milk Of Magnesia) 2,400 mg PO DAILY PRN PRN Reason: Constipation Magnesium Oxide (Mag-Ox) 400 mg PO DAILY [facility] Last Admin: 02/29/20 08:28 Dose: 400 mg Documented by: Melatonin (Melatonin) 3 mg PO HS [facility] Last Admin: 02/29/20 21:37 Dose: 3 mg Documented by: Miscellaneous Information (Pneumonia Protocol Utilized) 1 each PO ONCE PRN PRN Reason: Per Protocol Multivitamins (Theragran) 1 each PO DAILY [facility] Last Admin: 02/29/20 08:28 Dose: 1 each Documented by: Naloxone HCl (Narcan) 0.2 mg IV Q2M PRN PRN Reason: Opioid Reversal Ondansetron HCl (Zofran) 4 mg IVP Q8HR PRN PRN Reason: Nausea And Vomiting Sertraline HCl (Zoloft) 25 mg PO DAILY [facility] Last Admin: 02/29/20 08:28 Dose: 25 mg Documented by: Sodium Biphosphate/Sodium Phosphate (Fleet Adult) 133 ml RECTAL ONCE PRN PRN Reason: Constipation Physical examination: VITAL SIGNS: 98, 88, 20, 103/66, 95% on 4 L GENERAL: laying in bed, comfortable EYES: Pupils equal. Conjunctiva normal. HEENT: External appearance of nose and ears normal, oral cavity grossly normal. NECK: JVD not raised; masses not palpable. HEART: First and second heart sounds are normal; no edema. LUNGS: Respiratory rate increased, decreased breath sounds . ABDOMEN: Soft, nontender, liver spleen not palpable, no masses palpable. PSYCH: , answering questions MUSCULAR skeletal: Evidence of OA INVESTIGATIONS, reviewed in the clinical context: sodium 123 potassium 4.8 creatinine 0.59 serum osmolality 256 Previous testing White count 8.1 hemoglobin 11.7 platelets 376 potassium 4.4 sodium 123 creatinine 0.58 serum osmolality 258 Troponin I 0.012 proBNP 259 EKG tracing personally reviewed by me-normal sinus rhythm, Chest x-ray film personally reviewed by me-she especially right-sided mass with infiltrates and mediastinum pulled the right Chest CTA-negative for PE. Abnormal large density in the right lung. Multiple nodules in both the sides. 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 Patient has received radiation treatment. Unclear about his follow-up with oncology. -Essential hypertension -Anxiety not otherwise specified -Mild cognitive impairment. We'll do a full assessment of with [facility] cognitive-assessment test. -GERD -BPH -Primary osteoarthritis -Acute COPD exacerbation in an ex-smoker -Question GI bleed with dark stools. -Patient scored 13 out of 30 on the MOCA assessment done by speech. Plan: patient is on demeclocycline.continue current medicns. Patient followed by Dr. Zayas in the office and discuss chemotherapy.
[2020-02-29] MEDS: SODIUM CHLORIDE TAB 1 GM TAB PO SCH (22:04)
[2020-03-01] MEDS: BUDESONIDE 0.5 MG/2 ML NEBU INHALATION SCH ×2 (07:24→20:59)
[2020-03-01] MEDS: FORMOTEROL FUMARATE 20 MCG/2 ML NEBU INHALATION SCH ×2 (07:24→20:59)
[2020-03-01] MEDS: IPRATROPIUM-ALBUTEROL 3 ML NEB INHALATION SCH ×5 (07:24→20:59)
[2020-03-01 08:29] LABS: African American GFR (CKD) >90 (>60 ml/min/1.73 sqM); Anion Gap 9 mmol/L; Blood Urea Nitrogen 12 mg/dL (9-20); Calcium 8.8 mg/dL (8.4-10.2); Carbon Dioxide 25 mmol/L (22-30); Chloride 90 mmol/L (98-107); Glucose 90 mg/dL (74-99); Non-African American GFR(CKD) >90 (>60 ml/min/1.73 sqM); Sodium 124 mmol/L (137-145)
[2020-03-01] MEDS: LOSARTAN 50 MG TAB PO SCH (08:48)
[2020-03-01] MEDS: MULTIVITAMINS, THERA 1 EACH TAB PO SCH (08:48)
[2020-03-01] MEDS: amLODIPine 5 MG TAB PO SCH (08:49)
[2020-03-01] MEDS: MAGNESIUM OXIDE 400 MG TAB PO SCH (08:49)
[2020-03-01] MEDS: SERTRALINE 25 MG TAB PO SCH (08:49)
[2020-03-01] MEDS: DEMECLOCYCLINE 150 MG TAB PO SCH ×2 (08:49→20:29)
[2020-03-01] MEDS: ENOXAPARIN 40 MG/0.4 ML SYRINGE SQ SCH (08:49)
[2020-03-01] MEDS: guaiFENesin 600 MG TABLET.ER PO SCH ×2 (08:49→20:28)
[2020-03-01] MEDS: FERROUS SULFATE 325 MG TAB PO SCH (08:49)
[2020-03-01] MEDS: SODIUM CHLORIDE TAB 1 GM TAB PO SCH ×3 (08:50→20:28)
--- NOTE | 2020-03-01 10:13 | P.PN ---
Subjective Progress Note Date: 03/01/20 Principal diagnosis: Palpitations This is a very pleasant 84-year-old gentleman who follows with Dr. Jansen as his primary care provider. He has a history of hypertension, hearing disorder, prostate disorder, anxiety. He also has a history of tonic tobacco dependence however quit in 2000. He follows with Dr. Huff in our office for COPD. 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 PET scan revealed extensive consolidation and opacity throughout the right upper and right middle lobes with areas of variable mild to intense uptake. The most intense uptake is in the right upper lobe corresponding to the spiculated mass seen back on 01/29/2019. Smaller areas of borderline moderate uptake in the right midlung corresponding to the nodule seen at that time. Additional bilateral pulmonary nodules measuring up to 2.6 cm on the right and 1.8 cm on the left show mild uptake that are suspicious for progressive gradual enlargement. No other metastatic disease is evident. He has undergone 10 radiation treatments and unfortunately had missed appointments with Dr. Choe and has not been initiated on any chemotherapy or other treatments at this time. He had recently been back in the oncology office and states he does have appointments scheduled. He has somewhat of a poor historian. He presented to the emergency room this morning with complaints of palpitations and elevated heart rate. He states usually it subsides after a few minutes of rest but was not slowing down in the presented for the same. He denied any chest pain, no worsening shortness of breath, no cough or congestion. No hemoptysis. No dizziness, lightheadedness. He states he was short of breath while his heart rate was high but is comfortable now at rest. He is currently in sinus rhythm. White count 8.1. Hemoglobin 11.7. Sodium 123. Potassium 4.4. Creatinine 0.58. Troponin negative times one. ProBNP 259. Chest x-ray shows masslike areas of infiltrate throughout the right lung. Additional patchy density in the left medial lung base. His 0.9 normal sinus rate 75 ML's per hour. He's been initiated on ceftriaxone. He is on DuoNeb inhalations, Pulmicort and Perforomist inhalations. Lovenox for DVT prophylaxis. CT angiogram pending. CoVID 19 screen pending. The patient is seen today 02/26/2020 in follow-up on the regular medical floor. He is currently resting comfortably in bed. Awake and alert in no acute distress. No further palpitations. Currently in sinus rhythm. CT angiogram ruled out pulmonary embolism. There is progression of lung carcinoma, metastatic disease. Today's chest x-ray continues to show underlying mass and extensive airspace disease/pneumonia spelled the right lung. Similar compared to previous. Possible nodularity the left hilum and left heart margin. Evide nce of COPD. He is maintaining O2 saturations in the low 90s on 2 L/m per nasal cannula. He's been afebrile. Blood culture reveals no growth. Sputum culture pending. Sodium 125. Potassium 4.8. Chloride 92. Bicarb 23. Creatinine 0.55. Glucose 118. TSH 1.73. Urine osmolality 249. Serum osmolality 258. Coronavirus not detected. The patient is seen today 02/27/2020 in follow-up on the regular medical floor. He is currently sitting up in a chair at the bedside. Awake and alert in no acute distress. Maintaining good O2 saturations in the upper 90s on 4 L/m per nasal cannula. She's been afebrile. Blood and sputum cultures reveal no growth. Stool for occult blood was negative. He is continued on DuoNeb inhalations, Pulmicort and Perforomist inhalations, antibiotics in the form of ceftriaxone. Enoxaparin for DVT prophylaxis. The patient is seen today 02/28/2020 in follow-up on the regular medical floor. He remains awake and alert in no acute distress. Currently sitting up at the bedside. He is maintaining O2 saturation in the 90s on 4 L/m per nasal cannula. Blood and sputum cultures reveal no growth. Last sodium 125. Remains on fluid restrictions. Patient is seen today 02/29/2020 in follow-up on the regular medical floor. He is resting comfortably in bed. Somewhat drowsy. Denies any shortness of breath, cough or congestion. Follow-up chest x-ray continues to revealed a right lung mass, diffuse right airspace disease and bilateral pulmonary pneumonia nodules. Unchanged compared to 02/26/2020. Blood and sputum cultures reveal no growth. Sodium 123. Potassium 4.8. Creatinine 0.59. The patient is seen today 03/01/2020 in follow-up on the regular medical floor. He is currently resting comfortably in bed. Awake and alert in no acute distress. He denies any worsening shortness of breath. Continues with a loose nonproductive cough. No fever chills or night sweats. He is maintaining O2 saturations in the low 90s on 3 L/m per nasal cannula. He's afebrile. Hemodynamically stable. Sodium remains low at 124. Potassium 5.0. Chloride 90 . Bicarb 25. Creatinine 0.62. He is continued on sodium chloride tablets, bronchodilators, Declomycin, Mucinex. Objective - Vital Signs Vital signs: Vital Signs Temp 97.6 F 03/01/20 07:00 Pulse 82 03/01/20 07:46 Resp 18 03/01/20 07:00 BP 150/79 03/01/20 07:00 Pulse Ox 90 L 03/01/20 07:00 Intake & Output 02/29/20 03/01/20 03/01/20 18:59 06:59 18:59 Intake Total 720 940 Output Total 400 Balance 320 940 Intake: Oral 720 940 Output: Urine 400 Other: Voiding Method Urinal Toilet Urinal # Voids 3 1 - Exam GENERAL EXAM: Alert, pleasant 84-year-old gentleman, on 3 L nasal cannula, comfortable in no apparent distress. HEAD: Normocephalic. EYES: Normal reaction of pupils, equal size. NOSE: Clear with pink turbinates. THROAT: No erythema or exudates. NECK: No masses, no JVD. CHEST: No chest wall deformity. LUNGS: Equal air entry with bilateral scattered rhonchi right greater than left. CVS: S1 and S2 normal with no audible murmur, regular rhythm. ABDOMEN: No hepatosplenomegaly, normal bowel sounds, no guarding or rigidity. SPINE: No scoliosis or deformity SKIN: No rashes CENTRAL NERVOUS SYSTEM: No focal deficits, tone is normal in all 4 extremities. EXTREMITIES: There is no peripheral edema. No clubbing, no cyanosis. Peripheral pulses are intact. - Labs CBC & Chem 7: 02/26/20 09:37 03/01/20 07:12 Labs: Abnormal Lab Results - Last 24 Hours (Table) 03/01/20 Range/Units 07:12 Sodium 124 L (137-145) mmol/L Chloride 90 L (98-107) mmol/L Creatinine 0.62 L (0.66-1.25) mg/dL Microbiology - Last 24 Hours (Table) 02/25/20 09:03 Blood Culture - Preliminary Blood No Growth after 96 hours Assessment and Plan Assessment: 1 Palpitations of unclear etiology, currently in normal sinus rhythm with occasional PACs, echocardiogram revealed preserved left ventricular systolic function with ejection fraction 50-55% 2 Adenocarcinoma of the lung, diagnosed in August 2019, PET scan revealed extensive consolidation opacity throughout the right upper and right middle lobes with areas of variable mild to intense uptake. This intense uptake in the right upper lobe corresponding to the spiculated mass seen back on 01/29/2019. Smaller areas of underlying moderate uptake in the right midlung corresponding nodule seen at that time. Additional bilateral pulmonary nodules measuring up to 2.6 cm on the right and 1.8 cm on the left show mild uptake but her suspicious given progressive gradual enlargement. No other metastatic disease was evident. Status post radiation treatment thus far. 3 Former smoker quit in 2000 4 Hypoosmolar hyponatremia with current sodium 123 5 Hypertension 6 Hearing disorder 7 History of anxiety 8 Poor historian 9 Benign prostatic hyperplasia Plan: The patient was seen and evaluated by Dr. Huff The patient's overall prognosis remains quite poor May consider home with hospice, he seems agreeable Until decisions are made, we will continue to follow and make further recommendations based on his clinical status I, the cosigning physician, performed a history & physical examination of the patient. Lungs sounds with bilateral scattered rhonchi right greater than left. Maintaining good O2 saturations in the 90s on 3 L/m per nasal cannula. I discussed the assessment and plan of care with my nurse practitioner, Zuleyma Crews. I attest to the above note as dictated by her.
--- NOTE | 2020-03-01 15:03 | P.PN ---
Progress Note - Text Progress Note Date: 03/01/20 Chief Complaint: Shortness of breath History of presenting complaint: This is a very pleasant 84-year-old patient of Dr. Jansen.-rehab liaison Dr. Machado. Patient has long-standing history of COPD. Had been on oxygen. Chronic stable medical conditions include hypertension, some cognitive impairment, GERD, BPH, osteoarthritis. Was admitted in August of this year with pneumonia. 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 Patient apparently did get some radiation treatment by Dr. Anthony Roldan. It's unclear from the patient's history as to why he is not able to follow with oncologist. Patient been having increasing hot off and on for last 2 months. Intermittent. Became more persistent Patient did bring up phlegm that is clear. Increase in shortness of breath especially with activity. Appetite is okay. A bit tired rundown. admitted with multilobar pneumonia, COPD exacerbation. Started on IV ceftriaxone bronchodilators. Patient scored 18 out of 30 on the Montral assessment test. Seen by psychiatry. Ativan discontinued. Placed on Zoloft and Remeron. Hyponatremia. On demeclocycline. Fluid restriction. Today-tired. Oral intake fluctuates. Sodium running low. On demeclocycline. Review of systems: Was done for constitutional, cardiovascular, GI, pulmonary. relevant finding as above Active Medications Acetaminophen (Tylenol Tab) 650 mg PO Q6HR PRN PRN Reason: Mild Pain or Fever > 100.5 Al Hydroxide/Mg Hydroxide (Maalox) 15 ml PO Q6HR PRN PRN Reason: Indigestion Albuterol/Ipratropium (Duoneb 0.5 Mg-3 Mg/3 Ml Soln) 3 ml INHALATION RT-QID [facility] Last Admin: 03/01/20 11:27 Dose: 3 ml Documented by: Albuterol/Ipratropium (Duoneb 0.5 Mg-3 Mg/3 Ml Soln) 3 ml INHALATION RT-QID PRN PRN Reason: Shortness Of Breath Alprazolam (Xanax) 0.25 mg PO Q6HR PRN PRN Reason: Anxiety Amlodipine Besylate (Norvasc) 5 mg PO DAILY [facility] Last Admin: 03/01/20 08:49 Dose: 5 mg Documented by: Budesonide (Pulmicort) 0.5 mg INHALATION RT-BID [facility] Last Admin: 03/01/20 07:24 Dose: 0.5 mg Documented by: Calcium Carbonate/Glycine (Tums) 1,000 mg PO Q4HR PRN PRN Reason: Dyspepsia Demeclocycline HCl (Declomycin) 150 mg PO BID [facility] Last Admin: 03/01/20 08:49 Dose: 150 mg Documented by: Enoxaparin Sodium (Lovenox) 40 mg SQ DAILY [facility] Last Admin: 03/01/20 08:49 Dose: 40 mg Documented by: Ferrous Sulfate (Feosol) 325 mg PO DAILY [facility] Last Admin: 03/01/20 08:49 Dose: 325 mg Documented by: Formoterol Fumarate (Perforomist) 20 mcg INHALATION RT-BID [facility] Last Admin: 03/01/20 07:24 Dose: 20 mcg Documented by: Guaifenesin (Mucinex) 1,200 mg PO Q12HR [facility] Last Admin: 03/01/20 08:49 Dose: 1,200 mg Documented by: Lactulose (Cephulac) 20 gm PO DAILY PRN PRN Reason: Constipation Losartan Potassium (Cozaar) 50 mg PO DAILY [facility] Last Admin: 03/01/20 08:48 Dose: 50 mg Documented by: Magnesium Hydroxide (Milk Of Magnesia) 2,400 mg PO DAILY PRN PRN Reason: Constipation Magnesium Oxide (Mag-Ox) 400 mg PO DAILY [facility] Last Admin: 03/01/20 08:49 Dose: 400 mg Documented by: Melatonin (Melatonin) 3 mg PO HS [facility] Last Admin: 02/29/20 21:37 Dose: 3 mg Documented by: Miscellaneous Information (Pneumonia Protocol Utilized) 1 each PO ONCE PRN PRN Reason: Per Protocol Multivitamins (Theragran) 1 each PO DAILY [facility] Last Admin: 03/01/20 08:48 Dose: 1 each Documented by: Naloxone HCl (Narcan) 0.2 mg IV Q2M PRN PRN Reason: Opioid Reversal Ondansetron HCl (Zofran) 4 mg IVP Q8HR PRN PRN Reason: Nausea And Vomiting Sertraline HCl (Zoloft) 25 mg PO DAILY [facility] Last Admin: 03/01/20 08:49 Dose: 25 mg Documented by: Sodium Biphosphate/Sodium Phosphate (Fleet Adult) 133 ml RECTAL ONCE PRN PRN Reason: Constipation Sodium Chloride (Sodium Chloride Tab) 2 gm PO TID [facility] Last Admin: 03/01/20 08:50 Dose: 2 gm Documented by: Physical examination: VITAL SIGNS: 97.6, 91, 18, 150/79, 90% on 3 L GENERAL: laying in bed, tired EYES: Pupils equal. Conjunctiva normal. HEENT: External appearance of nose and ears normal, oral cavity grossly normal. NECK: JVD not raised; masses not palpable. HEART: First and second heart sounds are normal; no edema. LUNGS: Respiratory rate increased, decreased breath sounds . ABDOMEN: Soft, nontender, liver spleen not palpable, no masses palpable. PSYCH: , answering questions MUSCULAR skeletal: Evidence of OA INVESTIGATIONS, reviewed in the clinical context: Sodium 124 potassium 5 crit 0.62 Previous testing White count 8.1 hemoglobin 11.7 platelets 376 potassium 4.4 sodium 123 creatinine 0.58 serum osmolality 258 Troponin I 0.012 proBNP 259 EKG tracing personally reviewed by me-normal sinus rhythm, Chest x-ray film personally reviewed by me-she especially right-sided mass with infiltrates and mediastinum pulled the right Chest CTA-negative for PE. Abnormal large density in the right lung. Multiple nodules in both the sides. 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 Patient has received radiation treatment. Unclear about his follow-up with oncology. -Essential hypertension -Anxiety not otherwise specified -Mild cognitive impairment. We'll do a full assessment of with [facility] cognitive-assessment test. -GERD -BPH -Primary osteoarthritis -Acute COPD exacerbation in an ex-smoker -Question GI bleed with dark stools. Plan: Continue demeclocycline. Fluid restriction. Salt tablets added. Patient somewhat undecided about his treatment plan in regards to follow up with Dr. Zayas versus talked to pulmonary about hospice. We will do a repeat MOCA testing tomorrow
[2020-03-01] MEDS: MELATONIN 3 MG TABLET PO SCH (20:28)
[2020-03-02] MEDS: FORMOTEROL FUMARATE 20 MCG/2 ML NEBU INHALATION SCH ×2 (07:23→21:24)
[2020-03-02] MEDS: IPRATROPIUM-ALBUTEROL 3 ML NEB INHALATION SCH ×4 (07:23→21:24)
[2020-03-02] MEDS: BUDESONIDE 0.5 MG/2 ML NEBU INHALATION SCH ×2 (07:23→21:24)
[2020-03-02] MEDS: ENOXAPARIN 40 MG/0.4 ML SYRINGE SQ SCH (09:20)
[2020-03-02] MEDS: guaiFENesin 600 MG TABLET.ER PO SCH ×2 (09:21→20:12)
[2020-03-02] MEDS: amLODIPine 5 MG TAB PO SCH (09:21)
[2020-03-02] MEDS: MULTIVITAMINS, THERA 1 EACH TAB PO SCH (09:21)
[2020-03-02] MEDS: FERROUS SULFATE 325 MG TAB PO SCH (09:21)
[2020-03-02] MEDS: LOSARTAN 50 MG TAB PO SCH (09:21)
[2020-03-02] MEDS: DEMECLOCYCLINE 150 MG TAB PO SCH ×2 (09:21→20:13)
[2020-03-02] MEDS: MAGNESIUM OXIDE 400 MG TAB PO SCH (09:21)
[2020-03-02] MEDS: SODIUM CHLORIDE TAB 1 GM TAB PO SCH ×3 (09:21→20:12)
[2020-03-02] MEDS: SERTRALINE 25 MG TAB PO SCH (09:22)
--- NOTE | 2020-03-02 11:58 | P.NPCON ---
History of Present Illness - Reason for Consult hyponatremia - History of Present Illness Reason for consultation: Hyponatremia History of present illness: Patient is a 84-year-old male seen in renal consultation for hyponatremia. Patient presented to the hospital on 02/25/2020 with elevated heart rate. He has been evaluated by cardiology. Heart rate is fairly stable. Denies chest pain at this time. Shortness of breath has improved. He is currently on 3 L is a cannula. Patient has history of COPD. He also has history of lung cancer and states his last radiation treatment was about 5-6 weeks ago. He denies taking any diuretics. Patient's sodium level has been low this admission. Sodium l davinael was 123 on admission and was 124 as of March 01. He is maintained on sodium chloride tablets. He is also on fluid restriction. Oral intake has been fair. He doesn't like the food in the hospital too much. No vomiting or diarrhea. Good urine output. No hematuria or dysuria. No history of kidney disease. GFR at baseline. TSH normal this admission. Vital signs are stable. General: The patient appeared well nourished and normally developed. HEENT: Head exam is unremarkable. Neck is without jugular venous distension. LUNGS: Breath sounds decreased. HEART: Rate and Rhythm are regular. ABDOMEN: Soft, nontender. EXTREMITITES: No clubbing, cyanosis, or edema. Past Medical History Past Medical History: Cancer (Non-small cell lung cancer 08/2019. Nodules have been noted for at least 3 years. Patient continued to refuse workup. Treated only with radiation), COPD, Hypertension, Memory Impairment, Prostate Disorder Additional Past Medical History / Comment(s): intubated due to respiratory distress 2003 History of Any Multi-Drug Resistant Organisms: None Reported Past Surgical History: Tonsillectomy Additional Past Surgical History / Comment(s): vasectomy Past Anesthesia/Blood Transfusion Reactions: No Reported Reaction Past Psychological History: Anxiety Smoking Status: Never smoker Past Alcohol Use History: None Reported Past Drug Use History: None Reported - Past Family History Father Additional Family Medical History / Comment(s): Father was an alcoholic Mother Family Medical History: No Reported History Additional Family Medical History / Comment(s): Mother lived to be 87yrs old. Medications and Allergies Home Medications Medication Instructions Recorded Confirmed Type Ipratropium/Albuterol Sulfate 3 ml INHALATION RT-QID PRN 02/21/14 02/25/20 History [Duoneb 0.5 mg-3 mg/3 ml Soln] amLODIPine BESYLATE [Amlodipine 5 mg PO DAILY 05/21/15 02/25/20 History Besylate] Fluticasone Propion/Salmeterol 1 puff INHALATION RT-BID 09/05/19 02/25/20 History [Wixela 250-50 Inhub] Losartan [Cozaar] 50 mg PO DAILY 09/05/19 02/25/20 History Ferrous Sulfate [Feosol] 325 mg PO DAILY 02/25/20 02/25/20 History Magnesium Gluconate [Magonate] 500 mg PO DAILY 02/25/20 02/25/20 History Multivitamins, Thera [Multivitamin 1 tab PO DAILY 02/25/20 02/25/20 History (formulary)] Allergies Allergy/AdvReac Type Severity Reaction Status Date / Time doxazosin AdvReac Rapid Verified 02/25/20 08:11 Heart Rate tamsulosin [From Flomax] AdvReac Rapid Verified 02/25/20 08:11 Heart Rate Physical Exam Vitals: Vital Signs Temp Pulse Pulse Resp BP BP Pulse Ox 03/02/20 10:58 92 03/02/20 10:52 89 03/02/20 09:20 94 124/60 03/02/20 07:43 99 03/02/20 07:37 84 03/02/20 07:36 84 03/02/20 07:24 88 03/02/20 07:00 98.3 F 83 18 104/59 92 L 03/02/20 00:00 97.6 F 87 15 117/62 92 L 03/01/20 21:25 80 03/01/20 21:12 82 03/01/20 21:00 80 03/01/20 19:05 97.8 F 87 15 103/62 92 L 03/01/20 15:56 88 03/01/20 15:45 86 03/01/20 15:00 97.7 F 79 18 117/63 95 Intake and Output 03/01/20 03/02/20 03/02/20 22:59 06:59 14:59 Intake Total 240 Output Total 700 Balance 240 -700 Intake: Oral 240 Output: Urine 700 Other: Voiding Method Toilet Toilet Urinal # Voids 1 Results - Lab Results Most recent lab results Calcium 8.8 mg/dL (8.4-10.2) 03/01/20 07:12 Magnesium 1.8 mg/dL (1.6-2.3) 02/25/20 07:06 02/26/20 09:37 03/01/20 07:12 Assessment and Plan Plan: Assessment: 1. Hyponatremia. Euvolemic. 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 Also on Zoloft. Urine osmolality 249 on admission. TSH normal. 2. Lung cancer. 3. Benign hypertension. Controlled. 4. History of COPD. Plan: Maintain fluid restriction. I will decrease the dose of salt tabs. Samsca 15 mg once today. Repeat sodium level this evening. Encouraged oral intake, particularly protein. Thank you for the consultation. I will continue to follow the patient with you during his hospital stay.
[2020-03-02] MEDS ORDERED: TOLVAPTAN 15 MG 1/2 TABLET PO ONE (12:00)
--- NOTE | 2020-03-02 12:38 | P.PN ---
Subjective 84-year-old patient of Dr. Jansen.-pipelines superintendent Dr. Machado. Patient has long- standing history of COPD. Had been on oxygen. Chronic stable medical conditions include hypertension, some cognitive impairment, GERD, BPH, osteoarthritis. Was admitted in August of this year with pneumonia. 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 Patient apparently did get some radiation treatment by Dr. Anthony Roldan. It's u nclear from the patient's history as to why he is not able to follow with oncologist. Patient been having increasing hot off and on for last 2 months. Intermittent. Became more persistent Patient did bring up phlegm that is clear. Increase in shortness of breath especially with activity. Appetite is okay. A bit tired rundown. admitted with multilobar pneumonia, COPD exacerbation. Started on IV ceftriaxone bronchodilators. Patient scored 18 out of 30 on the Montral assessment test. Seen by psychiatry. Ativan discontinued. Placed on Zoloft and Remeron. Hyponatremia. On demeclocycline. Fluid restriction. Today-tired. Oral intake fluctuates. Sodium running low. On demeclocycline. Separate 2019 Patient's serum sodium remains low at 124. Patient is receiving total abdomen, nephrology was consulted patient is already on fluid restrictions all tablets, was on demeclocycline as well which probably will be discontinued. Patient is hemodynamically stable to remains on 2 L of oxygen which we'll wean off today. Constitutional: Denied any fatigue denied any fever. Cardio vascular: denied any chest pain, palpitations Gastrointestinal denied any nausea vomiting Pulmonary: Denied any shortness of breath cough Neurologic denied any new focal deficits All inpatient medications were reviewed and appropriate changes in these medications as dictated in the interval history and assessment and plan. Objective - Vital Signs Vital signs: Vital Signs Temp 98.3 F 03/02/20 07:00 Pulse 92 03/02/20 10:58 Resp 18 03/02/20 07:00 BP 124/60 03/02/20 09: Pulse Ox 92 L 03/02/20 07:00 Intake & Output 03/01/20 03/02/20 03/02/20 18:59 06:59 18:59 Intake Total 240 Output Total 700 Balance -460 Intake: Oral 240 Output: Urine 700 Other: Voiding Method Toilet Toilet Urinal # Voids 1 1 - Exam PHYSICAL EXAMINATION: GENERAL: The patient is alert and oriented x3, not in any acute distress. Well developed, well nourished. HEENT: Pupils are round and equally reacting to light. EOMI. No scleral icterus. No conjunctival pallor. Normocephalic, atraumatic. No pharyngeal erythema. No thyromegaly. CARDIOVASCULAR: S1 and S2 present. No murmurs, rubs, or gallops. PULMONARY: Chest is clear to auscultation, no wheezing or crackles. ABDOMEN: Soft, nontender, nondistended, normoactive bowel sounds. No palpable organomegaly. MUSCULOSKELETAL: No joint swelling or deformity. EXTREMITIES: No cyanosis, clubbing, or pedal edema. NEUROLOGICAL: Gross neurological examination did not reveal any focal deficits. SKIN: No rashes. 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 Patient has received radiation treatment. Unclear about his follow-up with oncology. -Essential hypertension -Anxiety not otherwise specified -Mild cognitive impairment. -GERD -BPH -Primary osteoarthritis -Acute COPD exacerbation in an ex-smoker
--- NOTE | 2020-03-02 14:14 | P.PN ---
Subjective Progress Note Date: 03/02/20 Principal diagnosis: Adenocarcinoma of the lung, shortness of breath This is a very pleasant 84-year-old gentleman who follows with Dr. Jansen as his primary care provider. He has a history of hypertension, hearing disorder, prostate disorder, anxiety. He also has a history of tonic tobacco dependence however quit in 2000. He follows with Dr. Huff in our office for COPD. 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 PET scan revealed extensive consolidation and opacity throughout the right upper and right middle lobes with areas of variable mild to intense uptake. The most intense uptake is in the right upper lobe corresponding to the spiculated mass seen back on 01/29/2019. Smaller areas of borderline moderate uptake in the right midlung corresponding to the nodule seen at that time. Additional bilateral pulmonary nodules measuring up to 2.6 cm on the right and 1.8 cm on the left show mild uptake that are suspicious for progressive gradual enlargement. No other metastatic disease is evident. He has undergone 10 radiation treatments and unfortunately had missed appointments with Dr. Choe and has not been initiated on any chemotherapy or other treatments at this time. He had recently been back in the oncology office and states he does have appointments scheduled. He has somewhat of a poor historian. He presented to the emergency room this morning with complaints of palpitations and elevated heart rate. He states usually it subsides after a few minutes of rest but was not slowing down in the presented for the same. He denied any chest pain, no worsening shortness of breath, no cough or congestion. No hemoptysis. No dizziness, lightheadedness. He states he was short of breath while his heart rate was high but is comfortable now at rest. He is currently in sinus rhythm. White count 8.1. Hemoglobin 11.7. Sodium 123. Potassium 4.4. Creatinine 0.58. Troponin negative times one. ProBNP 259. Chest x-ray shows masslike areas of infiltrate throughout the right lung. Additional patchy density in the left medial lung base. His 0.9 normal sinus rate 75 ML's per hour. He's been initiated on ceftriaxone. He is on DuoNeb inhalations, Pulmicort and Perforomi st inhalations. Lovenox for DVT prophylaxis. CT angiogram pending. CoVID 19 screen pending. The patient is seen today 02/26/2020 in follow-up on the regular medical floor. He is currently resting comfortably in bed. Awake and alert in no acute distress. No further palpitations. Currently in sinus rhythm. CT angiogram ruled out pulmonary embolism. There is progression of lung carcinoma, m etastatic disease. Today's chest x-ray continues to show underlying mass and extensive airspace disease/pneumonia spelled the right lung. Similar compared to previous. Possible nodularity the left hilum and left heart margin. Evidence of COPD. He is maintaining O2 saturations in the low 90s on 2 L/m per nasal cannula. He's been afebrile. Blood culture reveals no growth. Sputum culture pending. Sodium 125. Potassium 4.8. Chloride 92. Bicarb 23. Creatinine 0.55. Glucose 118. TSH 1.73. Urine osmolality 249. Serum osmolality 258. Coronavirus not detected. The patient is seen today 02/27/2020 in follow-up on the regular medical floor. He is currently sitting up in a chair at the bedside. Awake and alert in no acute distress. Maintaining good O2 saturations in the upper 90s on 4 L/m per nasal cannula. She's been afebrile. Blood and sputum cultures reveal no growth. Stool for occult blood was negative. He is continued on DuoNeb inhalations, Pulmicort and Perforomist inhalations, antibiotics in the form of ceftriaxone. Enoxaparin for DVT prophylaxis. The patient is seen today 02/28/2020 in follow-up on the regular medical floor. He remains awake and alert in no acute distress. Currently sitting up at the bedside. He is maintaining O2 saturation in the 90s on 4 L/m per nasal cannula. Blood and sputum cultures reveal no growth. Last sodium 125. Remains on fluid restrictions. Patient is seen today 02/29/2020 in follow-up on the regular medical floor. He is resting comfortably in bed. Somewhat drowsy. Denies any shortness of breath, cough or congestion. Follow-up chest x-ray continues to revealed a right lung mass, diffuse right airspace disease and bilateral pulmonary pneumonia nodules. Unchanged compared to 02/26/2020. Blood and sputum cultures reveal no growth. Sodium 123. Potassium 4.8. Creatinine 0.59. The patient is seen today 03/01/2020 in follow-up on the regular medical floor. He is currently resting comfortably in bed. Awake and alert in no acute distress. He denies any worsening shortness of breath. Continues with a loose nonproductive cough. No fever chills or night sweats. He is maintaining O2 saturations in the low 90s on 3 L/m per nasal cannula. He's afebrile. Hemodynamically stable. Sodium remains low at 124. Potassium 5.0. Chloride 90. Bicarb 25. Creatinine 0.62. He is continued on sodium chloride tablets, bronchodilators, Declomycin, Mucinex. On 03/02/2020 patient seen in follow-up on general medical surgical floor. He is sitting up on the edge of the bed, in no acute distress, he is on 3 L of oxygen his pulse ox of 95%, he feels cold, but his been afebrile. Vital signs have been stable. Denies any cough or congestion, denies any phlegm production, no chest pain, no hemoptysis. No worsening shortness of breath, breathing seems to be comfortable. Patient is on sodium chloride tablets, he received oral dose of told 10. Nephrology is following. Today's serum sodium is 124, potassium is 5.0, chloride is 90, CO2 25, BUN is 12 creatinine 0.62. He is on fluid restriction of 1200 mL of fluids per day. No acute issues overnight. Social work is involved as the patient may need placement in the rehabilitation facility the patient lives alone, and in apparently has been having issues with confusion and agitation. Apparently patient was approached and asked about considering palliative care however he declined Objective - Vital Signs Vital signs: Vital Signs Temp 98.3 F 03/02/20 07:00 Pulse 92 03/02/20 10:58 Resp 18 03/02/20 07:00 BP 124/60 03/02/20 09:20 Pulse Ox 92 L 03/02/20 07:00 Intake & Output 03/01/20 03/02/20 03/02/20 18:59 06:59 18:59 Intake Total 240 Output Total 700 Balance -460 Weight 68.039 kg Intake: Oral 240 Output: Urine 700 Other: Voiding Method Toilet Toilet Urinal # Voids 1 1 - Exam GENERAL EXAM: Alert, on 3 L of oxygen pulse ox of 92%, comfortable in no ap parent distress. HEAD: Normocephalic/atraumatic. EYES: Normal reaction of pupils, equal size. Conjunctiva pink, sclera white. NOSE: Clear with pink turbinates. THROAT: No erythema or exudates. NECK: No masses, no JVD, no thyroid enlargement, no adenopathy. CHEST: No chest wall deformity. Symmetrical expansion. LUNGS: Equal air entry with diminished sounds at the bases, with limited crackles at the right base CVS: Regular rate and rhythm, normal S1 and S2, no gallops, no murmurs, no rubs ABDOMEN: Soft, nontender. No hepatosplenomegaly, normal bowel sounds, no guarding or rigidity. EXTREMITIES: No clubbing, no edema, no cyanosis, 2+ pulses and upper and lower extremities. MUSCULOSKELETAL: Muscle strength and tone normal. SPINE: No scoliosis or deformity SKIN: No rashes CENTRAL NERVOUS SYSTEM: Alert and oriented -3. No focal deficits, tone is normal in all 4 extremities. PSYCHIATRIC: Alert and oriented -3. Appropriate affect. Intact judgment and insight. - Labs CBC & Chem 7: 02/26/20 09:37 03/01/20 07:12 Labs: Microbiology - Last 24 Hours (Table) 02/25/20 09:03 Blood Culture - Final Blood No Growth after 144 hours Assessment and Plan Plan: Assessment: 1 Palpitations of unclear etiology, currently in normal sinus rhythm with occasional PACs, echocardiogram revealed preserved left ventricular systolic function with ejection fraction 50-55% 2 Adenocarcinoma of the lung, diagnosed in August 2019, PET scan revealed extensive consolidation opacity throughout the right upper and right middle lobes with areas of variable mild to intense uptake. This intense uptake in the right upper lobe corresponding to the spiculated mass seen back on 01/29/2019. Smaller areas of underlying moderate uptake in the right midlung corresponding nodule seen at that time. Additional bilateral pulmonary nodules measuring up to 2.6 cm on the right and 1.8 cm on the left show mild uptake but her suspicious given progressive gradual enlargement. No other metastatic disease was evident. Status post radiation treatment thus far. 3 Former smoker quit in 2000 4 Hypoosmolar hyponatremia with current sodium 123, improving, remains on oral sodium tablets, water restriction, and told that 5 Hypertension 6 Hearing disorder 7 History of anxiety 8 Poor historian 9 Benign prostatic hyperplasia Plan: Clinically patient is stable, no acute events overnight, today's labs have been noted, and we will defer to nephrology on the serum sodium management. No wo rsening dyspnea, breathing seems to be comfortable continue nebulized bronchodilators. She has had no fever or chills. From pulmonary perspective patient can be considered for discharge, social work is following, in regards to possible rehab placement after discharge. I performed a history & physical examination of the patient and discussed their management with my nurse practitioner, Ethel Nichols. I reviewed the nurse practitioner's note and agree with the documented findings and plan of care. Lung sounds are positive for minimal rales in right base. The findings and the impression was discussed with the patient. I attest to the documentation by the nurse practitioner. Time with Patient: Less than 30
[2020-03-02] MEDS: MELATONIN 3 MG TABLET PO SCH (20:12)
[2020-03-03] MEDS: BUDESONIDE 0.5 MG/2 ML NEBU INHALATION SCH (07:20)
[2020-03-03] MEDS: IPRATROPIUM-ALBUTEROL 3 ML NEB INHALATION SCH ×2 (07:20→11:16)
[2020-03-03] MEDS: FORMOTEROL FUMARATE 20 MCG/2 ML NEBU INHALATION SCH (07:20)
[2020-03-03 07:23] VITALS: BP 105/68; RESP 20; TEMP 97.6
[2020-03-03] MEDS: LOSARTAN 50 MG TAB PO SCH (08:21)
[2020-03-03] MEDS: SERTRALINE 25 MG TAB PO SCH (08:22)
[2020-03-03] MEDS: guaiFENesin 600 MG TABLET.ER PO SCH (08:22)
[2020-03-03] MEDS: MAGNESIUM OXIDE 400 MG TAB PO SCH (08:22)
[2020-03-03] MEDS: FERROUS SULFATE 325 MG TAB PO SCH (08:22)
[2020-03-03] MEDS: MULTIVITAMINS, THERA 1 EACH TAB PO SCH (08:22)
[2020-03-03] MEDS: SODIUM CHLORIDE TAB 1 GM TAB PO SCH (08:22)
[2020-03-03] MEDS: DEMECLOCYCLINE 150 MG TAB PO SCH (08:22)
[2020-03-03] MEDS: ENOXAPARIN 40 MG/0.4 ML SYRINGE SQ SCH (08:23)
--- NOTE | 2020-03-03 10:07 | P.PN ---
Subjective patient is seen in follow-up for hyponatremia. Status post dose of Samsca on March 02. Sodium level I:XXX as of last night. Denies chest pain or shortness of breath. Has been voiding. hemodynamically stable. Vital signs are stable. General: The patient appeared well nourished and normally developed. HEENT: Head exam is unremarkable. Neck is without jugular venous distension. LUNGS: Breath sounds decreased. HEART: Rate and Rhythm are regular. ABDOMEN: soft, nontender. EXTREMITITES: No clubbing, cyanosis, or edema. Objective - Vital Signs Vital signs: Vital Signs Temp 97.6 F 03/03/20 07:00 Pulse 96 03/03/20 07:43 Resp 20 03/03/20 07:00 BP 105/68 03/03/20 07:00 Pulse Ox 94 L 03/03/20 07:00 Intake & Output 03/02/20 03/03/20 03/03/20 18:59 06:59 18:59 Intake Total 340 Output Total 500 150 Balance -160 -150 Weight 68.039 kg Intake: Oral 340 Output: Urine 500 150 Other: Voiding Method Toilet Toilet # Voids 2 - Labs CBC & Chem 7: 02/26/20 09:37 03/02/20 17:52 Labs: Abnormal Lab Results - Last 24 Hours (Table) 03/02/20 Range/Units 17:52 Sodium 130 L (137-145) mmol/L Microbiology - Last 24 Hours (Table) 02/25/20 09:03 Blood Culture - Final Blood No Growth after 144 hours Assessment and Plan Plan: Assessment: 1. Hyponatremia. Euvolemic. 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 Also on Zoloft. Urine osmolality 249 on admission. TSH normal. status post [facility]es consultation March 02. Sodium level I:XXX as of yesterday evening. 2. Lung cancer. 3. Benign hypertension. Controlled. 4. History of COPD. Plan: Maintain fluid restriction. maintain salt tabs. Encouraged oral intake, particularly protein. follow-up morning labs. hold losartan of systolic blood pressure less than 120.
[2020-03-03 10:22] LABS: African American GFR (CKD) >90 (>60 ml/min/1.73 sqM); Anion Gap 6 mmol/L; Blood Urea Nitrogen 13 mg/dL (9-20); Calcium 8.7 mg/dL (8.4-10.2); Carbon Dioxide 29 mmol/L (22-30); Chloride 94 mmol/L (98-107); Glucose 157 mg/dL (74-99); Non-African American GFR(CKD) >90 (>60 ml/min/1.73 sqM); Potassium 4.9 mmol/L (3.5-5.1); Sodium 129 mmol/L (137-145)
[2020-03-03 11:29] VITALS: PULSE 96
--- NOTE | 2020-03-03 12:04 | P.DS ---
Providers Date of admission: 02/25/20 08:52 Attending physician: Dez Sosa Consults: 02/25/20 08:50 Consult Physician Routine Consulting Provider: Julio C Huff Consult Reason/Comments: Dyspnea, pneumonia,lung cancer Do you want consulting provider notified?: Yes 02/25/20 08:51 Consult Physician Routine Consulting Provider: Tank Choe Consult Reason/Comments: lung cancer Do you want consulting provider notified?: Yes 02/25/20 12:19 Consult Physician Routine Consulting Provider: Madi Roldan Consult Reason/Comments: lung ca Do you want consulting provider notified?: Yes 02/25/20 12:22 Consult Physician Routine Consulting Provider: Judy Adorno Consult Reason/Comments: black stools Do you want consulting provider notified?: Yes 02/25/20 12:24 Consult Physician Routine Consulting Provider: Corey Sweeney Consult Reason/Comments: elvated heart rate at home Do you want consulting provider notified?: Yes 02/27/20 11:59 Consult Physician Urgent Consulting Provider: Jose Guadalupe Beck Consult Reason/Comments: MOCA score of 13/30 Do you want consulting provider notified?: Yes 03/02/20 11:30 Consult Physician Routine Consulting Provider: Felix Viveros Consult Reason/Comments: Hyponatremia Do you want consulting provider notified?: Yes Primary care physician: [facility] Course: 84-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 Patient has long- standing history of COPD. Had been on oxygen. Chronic stable medical conditions include hypertension, some cognitive impairment, GERD, BPH, osteoarthritis. Was admitted in August of this year with pneumonia. 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 Patient apparently did get some radiation treatment by Dr. Anthony Roldan. It's unclear from the patient's history as to why he is not able to follow with oncologist. Patient been having increasing hot off and on for last 2 months. Intermittent. Became more persistent Patient did bring up phlegm that is clear. Increase in shortness of breath especially with activity. Appetite is okay. A bit tired rundown. admitted with multilobar pneumonia, COPD exacerbation. Started on IV ceftriaxone bronchodilators. Patient scored 18 out of 30 on the Montral assessment test. Seen by psychiatry. Ativan discontinued. Placed on Zoloft and Remeron. Hyponatremia. On demeclocycline. Fluid restriction. Today-tired. Oral intake fluctuates. Sodium running low. On demeclocycline. 03/02/2020 Patient's serum sodium remains low at 124. Patient is receiving total abdomen, nephrology was consulted patient is already on fluid restrictions all tablets, was on demeclocycline as well which probably will be discontinued. Patient is hemodynamically stable to remains on 2 L of oxygen which we'll wean off today. 03/03/2020 Patient is not in respiratory distress although still on 3 L of oxygen and the patient will be discharged on the solids and patient was evaluated by pulmonology cleared for discharge. I discussed with nephrology is agreeable and discharge and patient was discharged on Lasix, salt tablets and close follow-ups with PCP, nephrology and oncology as an outpatient. Repeat basic metabolic profile will be obtained for Sunday. Serum sodium improved to 129. Patient received a dose of Talvaptone Exam PHYSICAL EXAMINATION: GENERAL: The patient is alert and oriented x3, not in any acute distress. Well developed, well nourished. HEENT: Pupils are round and equally reacting to light. EOMI. No scleral icterus. No conjunctival pallor. Normocephalic, atraumatic. No pharyngeal erythema. No thyromegaly. CARDIOVASCULAR: S1 and S2 present. No murmurs, rubs, or gallops. PULMONARY: Chest is clear to auscultation, no wheezing or crackles. ABDOMEN: Soft, nontender, nondistended, normoactive bowel sounds. No palpable organomegaly. MUSCULOSKELETAL: No joint swelling or deformity. EXTREMITIES: No cyanosis, clubbing, or pedal edema. NEUROLOGICAL: Gross neurological examination did not reveal any focal deficits. SKIN: No rashes. Assessment and Plan Plan: Assessment: -Euvolemic hyponatremia: Secondary to possible SIADH , improved but not normalized patient will continue his fluid restriction and above-mentioned management -Patient was treated for pneumonia presently not on any antibiotics -Lung cancer with a known diagnosis of adenocarcinoma Patient has received radiation treatment. Patient will follow-up with oncology. -Essential hypertension -Anxiety not otherwise specified -Mild cognitive impairment. -GERD -BPH -Primary osteoarthritis -Acute COPD exacerbation in an ex-smoker -Generalized weakness secondary to prolonged hospitalization age patient will be discharged with home physical therapy and home care Plan - Discharge Summary Discharge Rx Participant: No New Discharge Prescriptions: New Sertraline [Zoloft] 25 mg PO DAILY #30 tab Furosemide [Lasix] 20 mg PO DAILY #30 tab Sodium Chloride Tab 1 gm PO BID #30 tab Lactose-Reduced Food [Ensure Plus] 1 can PO BID #60 can Continue Ipratropium/Albuterol Sulfate [Duoneb 0.5 mg-3 mg/3 ml Soln] 3 ml INHALATION RT-QID PRN PRN Reason: Shortness Of Breath Fluticasone Propion/Salmeterol [Wixela 250-50 Inhub] 1 puff INHALATION RT-BID Multivitamins, Thera [Multivitamin (formulary)] 1 tab PO DAILY Magnesium Gluconate [Magonate] 500 mg PO DAILY Ferrous Sulfate [Iron (65 MG Elemental)] 325 mg PO DAILY Discontinued amLODIPine BESYLATE [Amlodipine Besylate] 5 mg PO DAILY Losartan [Cozaar] 50 mg PO DAILY Discharge Medication List Ipratropium/Albuterol Sulfate [Duoneb 0.5 mg-3 mg/3 ml Soln] 3 ml INHALATION RT- QID PRN 02/21/14 [History] Fluticasone Propion/Salmeterol [Wixela 250-50 Inhub] 1 puff INHALATION RT-BID 09/05/19 [History] Ferrous Sulfate [Iron (65 MG Elemental)] 325 mg PO DAILY 02/25/20 [History] Magnesium Gluconate [Magonate] 500 mg PO DAILY 02/25/20 [History] Multivitamins, Thera [Multivitamin (formulary)] 1 tab PO DAILY 02/25/20 [History] Furosemide [Lasix] 20 mg PO DAILY #30 tab 03/03/20 [Rx] Lactose-Reduced Food [Ensure Plus] 1 can PO BID #60 can 03/03/20 [Rx] Sertraline [Zoloft] 25 mg PO DAILY #30 tab 03/03/20 [Rx] Sodium Chloride Tab 1 gm PO BID #30 tab 03/03/20 [Rx] Follow up Appointment(s)/Referral(s): Jose Guadalupe Jansen DO [Primary Care Provider] - 3 Days (office busy Please call to make appointment) Yair Mazariegos DO [STAFF PHYSICIAN] - 03/17/20 (office will call with appointment time) [facility], [NON-STAFF] - Felix Viveros DO [STAFF PHYSICIAN] - 1 Week (office not answering at time of discharge. Please call to make appointmen) Ambulatory/Diagnostic Orders: Basic Metabolic Panel [LAB.AMB] Time Frame: 2 Days, Location: None Selected Patient Instructions/Handouts: Lung Cancer (DC), Community Acquired Pneumonia (DC) Activity/Diet/Wound Care/Special Instructions: Fluid restricted diet [facility] will deliver a portable oxygen tank to the patient's bedside before discharge. Please call [facility] once home to arrange delivery of home oxygen: [phone]. Discharge Disposition: HOME WITH HOME HEALTH SERVICES
--- NOTE | 2020-03-03 12:20 | P.PN ---
Subjective Progress Note Date: 03/03/20 Principal diagnosis: Adenocarcinoma of the lung, shortness of breath This is a very pleasant 84-year-old gentleman who follows with Dr. Jansen as his primary care provider. He has a history of hypertension, hearing disorder, prostate disorder, anxiety. He also has a history of tonic tobacco dependence however quit in 2000. He follows with Dr. Huff in our office for COPD. 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 PET scan revealed extensive consolidation and opacity throughout the right upper and right middle lobes with areas of variable mild to intense uptake. The most intense uptake is in the right upper lobe corresponding to the spiculated mass seen back on 01/29/2019. Smaller areas of borderline moderate uptake in the right midlung corresponding to the nodule seen at that time. Additional bilateral pulmonary nodules measuring up to 2.6 cm on the right and 1.8 cm on the left show mild uptake that are suspicious for progressive gradual enlargement. No other metastatic disease is evident. He has undergone 10 radiation treatments and unfortunately had missed appointments with Dr. Choe and has not been initiated on any chemotherapy or other treatments at this time. He had recently been back in the oncology office and states he does have appointments scheduled. He has somewhat of a poor historian. He presented to the emergency room this morning with complaints of palpitations and elevated heart rate. He states usually it subsides after a few minutes of rest but was not slowing down in the presented for the same. He denied any chest pain, no worsening shortness of breath, no cough or congestion. No hemoptysis. No dizziness, lightheadedness. He states he was short of breath while his heart rate was high but is comfortable now at rest. He is currently in sinus rhythm. White count 8.1. Hemoglobin 11.7. Sodium 123. Potassium 4.4. Creatinine 0.58. Troponin negative times one. ProBNP 259. Chest x-ray shows masslike areas of infiltrate throughout the right lung. Additional patchy density in the left medial lung base. His 0.9 normal sinus rate 75 ML's per hour. He's been initiated on ceftriaxone. He is on DuoNeb inhalations, Pulmicort and Perforomi st inhalations. Lovenox for DVT prophylaxis. CT angiogram pending. CoVID 19 screen pending. The patient is seen today 02/26/2020 in follow-up on the regular medical floor. He is currently resting comfortably in bed. Awake and alert in no acute distress. No further palpitations. Currently in sinus rhythm. CT angiogram ruled out pulmonary embolism. There is progression of lung carcinoma, m etastatic disease. Today's chest x-ray continues to show underlying mass and extensive airspace disease/pneumonia spelled the right lung. Similar compared to previous. Possible nodularity the left hilum and left heart margin. Evidence of COPD. He is maintaining O2 saturations in the low 90s on 2 L/m per nasal cannula. He's been afebrile. Blood culture reveals no growth. Sputum culture pending. Sodium 125. Potassium 4.8. Chloride 92. Bicarb 23. Creatinine 0.55. Glucose 118. TSH 1.73. Urine osmolality 249. Serum osmolality 258. Coronavirus not detected. The patient is seen today 02/27/2020 in follow-up on the regular medical floor. He is currently sitting up in a chair at the bedside. Awake and alert in no acute distress. Maintaining good O2 saturations in the upper 90s on 4 L/m per nasal cannula. She's been afebrile. Blood and sputum cultures reveal no growth. Stool for occult blood was negative. He is continued on DuoNeb inhalations, Pulmicort and Perforomist inhalations, antibiotics in the form of ceftriaxone. Enoxaparin for DVT prophylaxis. The patient is seen today 02/28/2020 in follow-up on the regular medical floor. He remains awake and alert in no acute distress. Currently sitting up at the bedside. He is maintaining O2 saturation in the 90s on 4 L/m per nasal cannula. Blood and sputum cultures reveal no growth. Last sodium 125. Remains on fluid restrictions. Patient is seen today 02/29/2020 in follow-up on the regular medical floor. He is resting comfortably in bed. Somewhat drowsy. Denies any shortness of breath, cough or congestion. Follow-up chest x-ray continues to revealed a right lung mass, diffuse right airspace disease and bilateral pulmonary pneumonia nodules. Unchanged compared to 02/26/2020. Blood and sputum cultures reveal no growth. Sodium 123. Potassium 4.8. Creatinine 0.59. The patient is seen today 03/01/2020 in follow-up on the regular medical floor. He is currently resting comfortably in bed. Awake and alert in no acute distress. He denies any worsening shortness of breath. Continues with a loose nonproductive cough. No fever chills or night sweats. He is maintaining O2 saturations in the low 90s on 3 L/m per nasal cannula. He's afebrile. Hemodynamically stable. Sodium remains low at 124. Potassium 5.0. Chloride 90. Bicarb 25. Creatinine 0.62. He is continued on sodium chloride tablets, bronchodilators, Declomycin, Mucinex. On 03/02/2020 patient seen in follow-up on general medical surgical floor. He is sitting up on the edge of the bed, in no acute distress, he is on 3 L of oxygen his pulse ox of 95%, he feels cold, but his been afebrile. Vital signs have been stable. Denies any cough or congestion, denies any phlegm production, no chest pain, no hemoptysis. No worsening shortness of breath, breathing seems to be comfortable. Patient is on sodium chloride tablets, he received oral dose of told 10. Nephrology is following. Today's serum sodium is 124, potassium is 5.0, chloride is 90, CO2 25, BUN is 12 creatinine 0.62. He is on fluid restriction of 1200 mL of fluids per day. No acute issues overnight. Social work is involved as the patient may need placement in the rehabilitation facility the patient lives alone, and in apparently has been having issues with confusion and agitation. Apparently patient was approached and asked about considering palliative care however he declined On 03/03/2020 patient seen in follow-up on general medical surgical floor. He is awake and alert, in no acute distress. He states he is doing better today, breathing seems to be comfortable, still requiring supplemental oxygen, he is on 4 L, with his pulse ox is 94%, with exercise he does desat to 92% on 4 L, room air pulse ox at rest is 93% and room air with exercise is 86%, and patient does qualify for home oxygen. No significant cough or congestion, no acute events overnight. No fever or chills, hemodynamically stable. Lung sounds reveal some scattered crackles over right posterior lung. No significant rhonchi or wheezing. Today's labs have been noted, serum sodium is 129, potassium 4.9, chloride is 94, B1 is 13 creatinine 0.62. Objective - Vital Signs Vital signs: Vital Signs Temp 97.6 F 03/03/20 07:00 Pulse 96 03/03/20 11:29 Resp 20 03/03/20 07:00 BP 105/68 03/03/20 07:00 Pulse Ox 93 L 03/03/20 11:01 Intake & Output 03/02/20 03/03/20 03/03/20 18:59 06:59 18:59 Intake Total 340 Output Total 500 150 Balance -160 -150 Weight 68.039 kg Intake: Oral 340 Output: Urine 500 150 Other: Voiding Method Toilet Toilet # Voids 2 - Exam GENERAL EXAM: Alert, on 4 L of oxygen pulse ox of 94%, comfortable in no apparent distress. HEAD: Normocephalic/atraumatic. EYES: Normal reaction of pupils, equal size. Conjunctiva pink, sclera white. NOSE: Clear with pink turbinates. THROAT: No erythema or exudates. NECK: No masses, no JVD, no thyroid enlargement, no adenopathy. CHEST: No chest wall deformity. Symmetrical expansion. LUNGS: Equal air entry with diminished sounds at the bases, with limited crackles at the right base CVS: Regular rate and rhythm, normal S1 and S2, no gallops, no murmurs, no rubs ABDOMEN: Soft, nontender. No hepatosplenomegaly, normal bowel sounds, no guarding or rigidity. EXTREMITIES: No clubbing, no edema, no cyanosis, 2+ pulses and upper and lower extremities. MUSCULOSKELETAL: Muscle strength and tone normal. SPINE: No scoliosis or deformity SKIN: No rashes CENTRAL NERVOUS SYSTEM: Alert and oriented -3. No focal deficits, tone is normal in all 4 extremities. PSYCHIATRIC: Alert and oriented -3. Appropriate affect. Intact judgment and insight. - Labs CBC & Chem 7: 02/26/20 09:37 03/03/20 08:38 Labs: Abnormal Lab Results - Last 24 Hours (Table) 03/02/20 03/03/20 Range/Units 17:52 08:38 Sodium 130 L 129 L (137-145) mmol/L Chloride 94 L (98-107) mmol/L Creatinine 0.62 L (0.66-1.25) mg/dL Glucose 157 H (74-99) mg/dL Microbiology - Last 24 Hours (Table) 02/25/20 09:03 Blood Culture - Final Blood No Growth after 144 hours Assessment and Plan Plan: Assessment: 1 Palpitations of unclear etiology, currently in normal sinus rhythm with occasional PACs, echocardiogram revealed preserved left ventricular systolic function with ejection fraction 50-55% 2 Adenocarcinoma of the lung, diagnosed in August 2019, PET scan revealed extensi ve consolidation opacity throughout the right upper and right middle lobes with areas of variable mild to intense uptake. This intense uptake in the right upper lobe corresponding to the spiculated mass seen back on 01/29/2019. Smaller areas of underlying moderate uptake in the right midlung corresponding nodule seen at that time. Additional bilateral pulmonary nodules measuring up to 2.6 cm on the right and 1.8 cm on the left show mild uptake but her suspicious given progressive gradual enlargement. No other metastatic disease was evident. Status post radiation treatment thus far. 3 Former smoker quit in 2000 4 Hypoosmolar hyponatremia with current sodium 123, improving, remains on oral sodium tablets, water restriction, and told that 5 Hypertension 6 Hearing disorder 7 History of anxiety 8 Poor historian 9 Benign prostatic hyperplasia Plan: Continue bronchodilators. Breathing is improving, no acute events overnight, no fever or chills. Increase activity as tolerated, home oxygen assessment was repeated, and patient does qualify for home oxygen as he does desaturate with exercise on room air and down to 86%, no specific complaints, no fever or chills, vitals have been stable, no chest pain, from pulmonary perspective patient could be considered for discharge home. I performed a history & physical examination of the patient and discussed their management with my nurse practitioner, Ethel Nichols. I reviewed the nurse practitioner's note and agree with the documented findings and plan of care. Lung sounds are positive for minimal rales in right base. The findings and the impression was discussed with the patient. I attest to the documentation by the nurse practitioner. Time with Patient: Less than 30
== END 2020-03-03 12:51 | disposition home health service (06) | DRG 178 ==
LOC: EC 06:48 → 4SSUR 08:52
PROVIDERS: ADMIT Hospitalist; ATTEND Hospitalist
DX: J15.6 Pneumonia due to other Gram-negative bacteria (principal); J44.0 Chronic obstructive pulmonary disease with (acute) lower respiratory infection; E22.2 Syndrome of inappropriate secretion of antidiuretic hormone; C78.02 Secondary malignant neoplasm of left lung; C78.01 Secondary malignant neoplasm of right lung; C34.11 Malignant neoplasm of upper lobe, right bronchus or lung; J44.1 Chronic obstructive pulmonary disease with (acute) exacerbation; F03.90 Unspecified dementia, unspecified severity, without behavioral disturbance, psychotic disturbance, mood disturbance, and anxiety; Z20.828 Contact with and (suspected) exposure to other viral communicable diseases; I12.9 Hypertensive chronic kidney disease with stage 1 through stage 4 chronic kidney disease, or unspecified chronic kidney disease; F41.9 Anxiety disorder, unspecified; R00.0 Tachycardia, unspecified; N40.0 Benign prostatic hyperplasia without lower urinary tract symptoms; M19.91 Primary osteoarthritis, unspecified site; K21.9 Gastro-esophageal reflux disease without esophagitis; N18.9 Chronic kidney disease, unspecified; I49.1 Atrial premature depolarization; H91.90 Unspecified hearing loss, unspecified ear; D63.0 Anemia in neoplastic disease; I35.0 Nonrheumatic aortic (valve) stenosis; F32.9 Major depressive disorder, single episode, unspecified; G47.00 Insomnia, unspecified; J30.2 Other seasonal allergic rhinitis; Z79.899 Other long term (current) drug therapy; Z91.19 Patient's noncompliance with other medical treatment and regimen; Z98.890 Other specified postprocedural states; Z87.01 Personal history of pneumonia (recurrent); Z87.891 Personal history of nicotine dependence; Z98.42 Cataract extraction status, left eye; Z98.41 Cataract extraction status, right eye; Z96.1 Presence of intraocular lens; Z88.8 Allergy status to other drugs, medicaments and biological substances; Z81.1 Family history of alcohol abuse and dependence; Z71.3 Dietary counseling and surveillance
CPT/HCPCS: 36415; 71045; 71046; 71275; 80048; 80053; 82272; 83605; 83735; 83880; 83930; 83935; 84295; 84300; 84443; 84484; 85025; 85610; 85730; 87040; 87070; 87205; 93005; 93306; 94640; 94760; 96361; 96365; 96375; 99285

== ENCOUNTER 2020-03-27 17:42 | Inpatient (IN) | payer BC, MEDICAID, MEDICARE ==
[2020-03-27] MEDS ORDERED: IPRATROPIUM-ALBUTEROL 3 ML NEB INHALATION STA ×2 (18:13→20:57)
[2020-03-27 18:42] LABS: Basophils % (A) 0 %; Eosinophils # (A) 0.1 k/uL (0-0.7); Eosinophils % (A) 1 %; HCT 37.4 % (39.0-53.0); HGB 12.5 gm/dL (13.0-17.5); Lymphocytes # (A) 0.2 k/uL (1.0-4.8); Lymphocytes % (A) 3 %; MCH 31.3 pg (25.0-35.0); MCHC 33.4 g/dL (31.0-37.0); MCV 93.6 fL (80.0-100.0); Mean Platelet Volume 7.4; Monocytes # (A) 0.3 k/uL (0-1.0); Monocytes % (A) 3 %; Neutrophils # (A) 7.4 k/uL (1.3-7.7); Neutrophils % (A) 92 %; Platelet Count 370 k/uL (150-450); RBC 3.99 m/uL (4.30-5.90); RDW 13.4 % (11.5-15.5)
[2020-03-27 18:52] LABS: INR 1.1 (<1.2); Partial Thromboplastin Time 28.7 sec (22.0-30.0); Prothrombin Time 11.2 sec (9.0-12.0)
[2020-03-27 18:53] LABS: ALT 23 U/L (4-49); AST 42 U/L (17-59); African American GFR (CKD) >90 (>60 ml/min/1.73 sqM); Albumin 3.3 g/dL (3.5-5.0); Alkaline Phosphatase 78 U/L (38-126); Anion Gap 8 mmol/L; Blood Urea Nitrogen 16 mg/dL (9-20); Calcium 8.7 mg/dL (8.4-10.2); Carbon Dioxide 27 mmol/L (22-30); Chloride 88 mmol/L (98-107); Glucose 114 mg/dL (74-99); Non-African American GFR(CKD) >90 (>60 ml/min/1.73 sqM); Sodium 123 mmol/L (137-145); Total Bilirubin 0.7 mg/dL (0.2-1.3)
[2020-03-27 18:58] LABS: Potassium 5.6 mmol/L (3.5-5.1)
--- NOTE | 2020-03-27 19:00 | XR ---
EXAMINATION TYPE: XR chest 2V DATE OF EXAM: 03/27/2020 COMPARISON: 03/13/2020 HISTORY: Difficulty breathing TECHNIQUE: 2 views FINDINGS: There is extensive consolidation in the right lung with volume loss. Heart and mediastinum are shifted to the right side. Left lung shows some diffuse mild patchy infiltrate. There is no heart failure. There are chest leads. IMPRESSION: There is progression of the consolidation and volume loss in the right hemithorax compare d to last exam and consistent with progression of tumor. There is coarse left side lung density incre ased slightly compared to old exam.
--- NOTE | 2020-03-27 20:07 | CT ---
EXAMINATION TYPE: CT chest angio for PE DATE OF EXAM: 03/27/2020 COMPARISON: February 25, 2020 HISTORY: Shortness of breath. History of lung cancer. CT DLP: 341.5 mGycm Automated exposure control for dose reduction was used. CONTRAST: Performed with IV Contrast, patient injected with 100 mL of Isovue 370. There are 3-D post processed images. There is extensive consolidation in the anterior right upper lobe with volume loss. Heart and mediast inum are shifted to the right side. There is extensive airspace consolidation throughout the right lo wer lobe. There is 2 cm stellate mass in the anterior left upper lobe. There is 3 cm stellate mass po sterior left lower lobe. There are other multiple stellate masses in the left lung that measure less than 2 cm. Thoracic aorta is intact. There is no aneurysm or dissection. I see no filling defects in the pulmonary arteries. There is no significant bronchial obstruction on the right side. IMPRESSION: No evidence of pulmonary embolism. Extensive consolidation in the right lung with volume loss consistent with progression of tumor in th is patient with a history of lung cancer. There is progression of the volume loss and the consolidati on compared to old exam. There is multiple masses in the left lung consistent with additional sites o f tumor and appear not significantly different than last exam.
[2020-03-27] MEDS ORDERED: methylPREDNISolone SOD SUCCI 125 MG/2 ML VIAL IV STA (20:20)
[2020-03-27] MEDS ORDERED: SODIUM CHLORIDE 0.9% 500 ML 500 ML IV ONE (21:34)
--- NOTE | 2020-03-27 21:58 | ED ---
General Adult HPI - General Chief complaint: Shortness of Breath Stated complaint: CAROLYNN Time Seen by Provider: 03/27/20 17:52 Source: EMS, RN notes reviewed, old records reviewed Mode of arrival: EMS Limitations: no limitations - History of Present Illness Initial comments: 84-year-old male patient who has advanced lung cancer and was supposedly on hospice presents to ED for evaluation of dyspnea. Patient reports that he has been feeling more short of breath today. Was concerned and came to the hospital. Patient reports that he wishes to be evaluated fully and treat as if he is not on hospice. Systemic: Pt denies fatigue, fever/chills, rash. Pt denies weakness, night sweats, weight loss. Neuro: Pt denies headache, visual disturbances, syncope or pre-syncope. HEENT: Pt denies ocular discharge or irritation, otalgia, rhinorrhea, pharyngitis or notable lymphadenopathy. Cardiopulmonary: Pt denies chest pain, heart palpitations, dyspnea on exertion. Abdominal/GI: Pt denies abdominal pain, n/v/d. : Pt denies dysuria, burning w/ urination, frequency/urgency. Denies new onset urinary or bowel incontinence. MSK: Pt denies myalgia, loss of strength or function in extremities. Neuro: Pt denies new onset weakness, paresthesias. - Related Data Home Medications Medication Instructions Recorded Confirmed Ipratropium/Albuterol Sulfate 3 ml INHALATION RT-QID PRN 02/21/14 03/27/20 [Duoneb 0.5 mg-3 mg/3 ml Soln] Fluticasone Propion/Salmeterol 1 puff INHALATION RT-BID 09/05/19 03/27/20 [Wixela 250-50 Inhub] Magnesium Gluconate [Magonate] 500 mg PO DAILY 02/25/20 03/27/20 Multivitamins, Thera [Multivitamin 1 tab PO DAILY 02/25/20 03/27/20 (formulary)] Previous Rx's Medication Instructions Recorded Sertraline [Zoloft] 25 mg PO DAILY #30 tab 03/03/20 Sodium Chloride Tab 1 gm PO BID #30 tab 03/03/20 guaiFENesin [Mucinex] 1,200 mg PO Q12HR #60 tablet.er 03/17/20 Allergies Allergy/AdvReac Type Severity Reaction Status Date / Time doxazosin AdvReac Rapid Verified 03/27/20 22:33 Heart Rate tamsulosin [From Flomax] AdvReac Rapid Verified 03/27/20 22:33 Heart Rate Review of Systems ROS Statement: Those systems with pertinent positive or pertinent negative responses have been documented in the HPI. ROS Other: All systems not noted in ROS Statement are negative. Past Medical History Past Medical History: Cancer, COPD, Hypertension, Memory Impairment, Prostate Disorder Additional Past Medical History / Comment(s): intubated due to respiratory distress 2003. Lung CA History of Any Multi-Drug Resistant Organisms: None Reported Past Surgical History: Tonsillectomy Additional Past Surgical History / Comment(s): vasectomy Past Anesthesia/Blood Transfusion Reactions: No Reported Reaction Past Psychological History: Anxiety Smoking Status: Former smoker Past Alcohol Use History: Rare Past Drug Use History: None Reported - Past Family History Father Additional Family Medical History / Comment(s): Father was an alcoholic Mother Family Medical History: No Reported History Additional Family Medical History / Comment(s): Mother lived to be 87yrs old. General Exam - General Exam Comments Initial Comments: Constitutional: NAD, AOX3, Pt has pleasant affect. HEENT: NC/AT, trachea midline, neck supple, no lymphadenopathy. Posterior pharynx non erythematous, without exudates. External ears appear normal, without discharge. Mucous membranes moist. Eyes PERRLA, EOM intact. There is no scleral icterus. No pallor noted. Cardiopulmonary: RRR, no murmurs, rubs or gallops, no JVD noted. Diminished lung sounds right-sided mild wheezing left-sided. No peripheral edema. Abdominal exam: Abdomen soft and non-distended. Abdomen non-tender to palpation in all 4 quadrants. Bowel sounds active in LLQ. No hepatosplenomegaly. No ecchymosis Neuro: CN II-XII grossly intact. No nuchal rigidity. MSK: No posterior calf tenderness bilaterally, homans sign negative bilaterally. Posterior tibialis and radial pulse +2 bilaterally. Sensation intact in upper and lower extremities. Full active ROM in upper and lower extremities, Limitations: no limitations Course Vital Signs 03/27/20 03/27/20 03/27/20 17:46 18:30 19:00 Temperature 97.9 F Pulse Rate 100 102 H 96 Respiratory 28 H 21 19 Rate Blood Pressure 139/88 139/88 135/86 O2 Sat by Pulse 96 83 L Oximetry 03/27/20 03/27/20 03/27/20 19:01 19:12 19:18 Temperature Pulse Rate 89 91 94 Respiratory 16 17 22 Rate Blood Pressure 134/70 O2 Sat by Pulse 87 L Oximetry 03/27/20 03/27/20 03/27/20 20:00 20:24 20:30 Temperature Pulse Rate 95 90 Respiratory 17 22 Rate Blood Pressure 132/76 109/66 O2 Sat by Pulse 93 L 80 L 98 Oximetry 03/27/20 03/27/20 03/27/20 21:00 21:12 21:19 Temperature Pulse Rate 96 98 101 H Respiratory 19 22 21 Rate Blood Pressure 107/66 O2 Sat by Pulse 98 Oximetry Medical Decision Making - Medical Decision Making 84-year-old palpation principally for evaluation of shortness of breath. Patient does have metastatic lung cancer and was previously on hospice reportedly. Patient vital signs did display some hypoxia without self and oxygenation and was placed on nonrebreather for she is satting in the 90s comfortably. Is able to talk and form sentences without difficulty. Laboratory investigations are unremarkable. CTA displayed no PE however he has extensive consolidation in the right lung consistent progression of tumor as well as left long masses. Patient initiated on steroids breathing treatments will be admitted to Dr. Sosa. Case discussed with Dr. Abdullahi. - Lab Data Result diagrams: 03/27/20 18:33 03/27/20 18:33 Lab Results 03/27/20 03/27/20 03/27/20 Range/Units 18:33 18:33 18:33 WBC 8.0 (3.8-10.6) k/uL RBC 3.99 L (4.30-5.90) m/uL Hgb 12.5 L (13.0-17.5) gm/dL Hct 37.4 L (39.0-53.0) % MCV 93.6 (80.0-100.0) fL MCH 31.3 (25.0-35.0) pg MCHC 33.4 (31.0-37.0) g/dL RDW 13.4 (11.5-15.5) % Plt Count 370 (150-450) k/uL Neutrophils % 92 % Lymphocytes % 3 % Monocytes % 3 % Eosinophils % 1 % Basophils % 0 % Neutrophils # 7.4 (1.3-7.7) k/uL Lymphocytes # 0.2 L (1.0-4.8) k/uL Monocytes # 0.3 (0-1.0) k/uL Eosinophils # 0.1 (0-0.7) k/uL Basophils # 0.0 (0-0.2) k/uL PT 11.2 (9.0-12.0) sec INR 1.1 (<1.2) APTT 28.7 (22.0-30.0) sec Sodium 123 L (137-145) mmol/L Potassium 5.6 H (3.5-5.1) mmol/L Chloride 88 L (98-107) mmol/L Carbon Dioxide 27 (22-30) mmol/L Anion Gap 8 mmol/L BUN 16 (9-20) mg/dL Creatinine 0.55 L (0.66-1.25) mg/dL Est GFR (CKD-EPI)AfAm >90 (>60 ml/min/1.73 sqM) Est GFR (CKD-EPI)NonAf >90 (>60 ml/min/1.73 sqM) Glucose 114 H (74-99) mg/dL Plasma Lactic Acid Morris (0.7-2.0) mmol/L Calcium 8.7 (8.4-10.2) mg/dL Total Bilirubin 0.7 (0.2-1.3) mg/dL AST 42 (17-59) U/L ALT 23 (4-49) U/L Alkaline Phosphatase 78 (38-126) U/L Troponin I (0.000-0.034) ng/mL NT-Pro-B Natriuret Pep pg/mL Total Protein 7.0 (6.3-8.2) g/dL Albumin 3.3 L (3.5-5.0) g/dL 03/27/20 03/27/20 03/27/20 Range/Units 18:33 18:33 18:33 WBC (3.8-10.6) k/uL RBC (4.30-5.90) m/uL Hgb (13.0-17.5) gm/dL Hct (39.0-53.0) % MCV (80.0-100.0) fL MCH (25.0-35.0) pg MCHC (31.0-37.0) g/dL RDW (11.5-15.5) % Plt Count (150-450) k/uL Neutrophils % % Lymphocytes % % Monocytes % % Eosinophils % % Basophils % % Neutrophils # (1.3-7.7) k/uL Lymphocytes # (1.0-4.8) k/uL Monocytes # (0-1.0) k/uL Eosinophils # (0-0.7) k/uL Basophils # (0-0.2) k/uL PT (9.0-12.0) sec INR (<1.2) APTT (22.0-30.0) sec Sodium (137-145) mmol/L Potassium (3.5-5.1) mmol/L Chloride (98-107) mmol/L Carbon Dioxide (22-30) mmol/L Anion Gap mmol/L BUN (9-20) mg/dL Creatinine (0.66-1.25) mg/dL Est GFR (CKD-EPI)AfAm (>60 ml/min/1.73 sqM) Est GFR (CKD-EPI)NonAf (>60 ml/min/1.73 sqM) Glucose (74-99) mg/dL Plasma Lactic Acid Morris 1.5 (0.7-2.0) mmol/L Calcium (8.4-10.2) mg/dL Total Bilirubin (0.2-1.3) mg/dL AST (17-59) U/L ALT (4-49) U/L Alkaline Phosphatase (38-126) U/L Troponin I 0.016 (0.000-0.034) ng/mL NT-Pro-B Natriuret Pep 513 pg/mL Total Protein (6.3-8.2) g/dL Albumin (3.5-5.0) g/dL - EKG Data -: EKG Interpreted by Me (and Dr. Miller ) EKG Comments: ventricular rate 96, NV interval 182, QRS 76, QT/QTC 324 shows 49. Normal sensory rhythm, septal infarct age undetermined. No concern for acute ischemia this time. Disposition Clinical Impression: Dyspnea, Lung cancer Disposition: ADMITTED IP TO THIS [facility] Condition: Serious Is patient prescribed a controlled substance at d/c from ED?: No
[2020-03-27] MEDS ORDERED: SODIUM POLYSTYRENE SULFONATE 15 GM/60 ML BOTTLE PO STA (22:42)
--- NOTE | 2020-03-27 22:43 | P.HPIM ---
History of Present Illness H&P Date: 03/27/20 Chief Complaint: Short of breath History of presenting complaint: This is a very pleasant 84-year-old patient of Dr. Jansen.-casing puller Dr. Machado. Patient has long-standing history of COPD. Had been on oxygen. Chronic stable medical conditions include hypertension, some cognitive impairment, GERD, BPH, osteoarthritis. Was admitted in August of this year with pneumonia. 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 Patient apparently did get some radiation treatment by Dr. Anthony Roldan. Patient subsequently did not every 2 follow-up with oncology. Had a couple more admissions with pneumonia. Worsening malignancy. He decided not to proceed with any further treatment. He was recently in the hospital here from March 12 through March 17. Again admitted with pneumonia. He was discharged to [facility] with [facility]. I had advised him to get a DURABLE POWER OF TAX ASSOCIATE ATTORNEY. It was his wishes not to get a court-appointed guardian hence locally Mr. Anthony Bucio did come and see the patient in the hospital and given papers to proceed with estate planning and DURABLE POWER OF TAX ASSOCIATE ATTORNEY. Patient today presented to the ER feeling more short of breath cough could not breathe. He told the ER physician he wanted treatment. I called [facility] marketing content coordinator Magy at [phone]. Informed her to see if patient will qualify for [facility]. Patient's appetite is gone down. Shortness of breath. Congestive the chest. Patient able to care of a conversation. I was informed that [facility] hosp[facility] is also proceeded with Alex Smalls and in the process of getting guardianship. 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 Lives alone-currently at [facility]. Family history: Reviewed, noncontributory to presentation Physical examination: VITAL SIGNS: 97.7, 97, 20, 118/71, 93% on 6 L GENERAL: Sitting up in bed, tired, short of breath, audibly congested EYES: Pupils equal. Conjunctiva pale. HEENT: External appearance of nose and ears normal, oral cavity grossly normal. NECK: JVD not raised; masses not palpable. HEART: First and second heart sounds are normal; no edema. LUNGS: Respiratory rate increased, decreased breath sounds prolonged expiration some expiratory crackles, not able to speak in full sentences ABDOMEN: Soft, nontender, liver spleen not palpable, no masses palpable. PSYCH: Alert and oriented x3; mood and affect anxious. MUSCULAR skeletal: Evidence of OA NEUROLOGICAL: Cranial nerves grossly intact; no facial asymmetry, power and sensation grossly intact. LYMPHATICS: No lymph nodes palpable in the axilla and neck INVESTIGATIONS, reviewed in the clinical context: White count 8 hemoglobin 12.5 platelets 370 potassium 5.6 creatinine 0.55 Chest x-ray film personally reviewed by me-increasing obesity on the right site infiltrates, possible mass l Assessment: -Acute hypoxic respiratory failure secondary to progression of lung cancer, possible pneumonia, POA - pneumonia suspected gram-negative organism. 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 Patient has received radiation treatment. Is not followed up for some time. -Hyperkalemia -SIADH -Essential hypertension -Mild cognitive impairment -GERD -BPH -Primary osteoarthritis -Acute COPD exacerbation in an ex-smoker -DO NOT RESUSCITATE-hospice Plan: Patient now being admitted under GIP under [facility]. Patient is requesting that he does not get a state appointed guardian. We'll have the [facility] social services technician help the patient with guardianship. Past Medical History Past Medical History: Cancer, COPD, Hypertension, Memory Impairment, Prostate Disorder Additional Past Medical History / Comment(s): intubated due to respiratory distress 2003. Lung CA History of Any Multi-Drug Resistant Organisms: None Reported Past Surgical History: Tonsillectomy Additional Past Surgical History / Comment(s): vasectomy Past Anesthesia/Blood Transfusion Reactions: No Reported Reaction Past Psychological History: Anxiety Smoking Status: Former smoker Past Alcohol Use History: Rare Past Drug Use History: None Reported - Past Family History Father Additional Family Medical History / Comment(s): Father was an alcoholic Mother Family Medical History: No Reported History Additional Family Medical History / Comment(s): Mother lived to be 87yrs old. Medications and Allergies Home Medications Medication Instructions Recorded Confirmed Type Ipratropium/Albuterol Sulfate 3 ml INHALATION RT-QID PRN 02/21/14 03/12/20 History [Duoneb 0.5 mg-3 mg/3 ml Soln] Fluticasone Propion/Salmeterol 1 puff INHALATION RT-BID 09/05/19 03/12/20 History [Wixela 250-50 Inhub] Magnesium Gluconate [Magonate] 500 mg PO DAILY 02/25/20 03/12/20 History Multivitamins, Thera [Multivitamin 1 tab PO DAILY 02/25/20 03/12/20 History (formulary)] Lactose-Reduced Food [Ensure Plus] 1 can PO BID #60 can 03/03/20 03/12/20 Rx Sertraline [Zoloft] 25 mg PO DAILY #30 tab 03/03/20 03/12/20 Rx Sodium Chloride Tab 1 gm PO BID #30 tab 03/03/20 03/12/20 Rx Amoxicillin/Potassium Clav 1 tab PO Q12HR #10 tab 03/17/20 Rx [Augmentin 875-125 Tablet] guaiFENesin [Mucinex] 1,200 mg PO Q12HR #60 tablet.er 03/17/20 Rx Allergies Allergy/AdvReac Type Severity Reaction Status Date / Time doxazosin AdvReac Rapid Verified 03/27/20 17:46 Heart Rate tamsulosin [From Flomax] AdvReac Rapid Verified 03/27/20 17:46 Heart Rate Physical Exam Vitals: Vital Signs Temp Pulse Pulse Resp BP BP Pulse Ox 03/27/20 22:19 97.7 F 97 20 118/71 93 L 03/27/20 21:19 101 H 21 03/27/20 21:12 98 22 03/27/20 21:00 96 19 107/66 98 03/27/20 20:30 90 22 109/66 98 03/27/20 20:24 80 L 03/27/20 20:00 95 17 132/76 93 L 03/27/20 19:18 94 22 134/70 87 L 03/27/20 19:12 91 17 03/27/20 19:01 89 16 03/27/20 19:00 96 19 135/86 83 L 03/27/20 18:30 102 H 21 139/88 03/27/20 17:46 97.9 F 100 28 H 139/88 96 Intake and Output 03/27/20 03/27/20 03/27/20 06:59 14:59 22:59 Other: Weight 61.235 kg Results CBC & Chem 7: 03/27/20 18:33 03/27/20 18:33 Labs: Abnormal Lab Results - Last 24 Hours (Table) 03/27/20 03/27/20 Range/Units 18:33 18:33 RBC 3.99 L (4.30-5.90) m/uL Hgb 12.5 L (13.0-17.5) gm/dL Hct 37.4 L (39.0-53.0) % Lymphocytes # 0.2 L (1.0-4.8) k/uL Sodium 123 L (137-145) mmol/L Potassium 5.6 H (3.5-5.1) mmol/L Chloride 88 L (98-107) mmol/L Creatinine 0.55 L (0.66-1.25) mg/dL Glucose 114 H (74-99) mg/dL Albumin 3.3 L (3.5-5.0) g/dL
[2020-03-27] MEDS: IPRATROPIUM-ALBUTEROL 3 ML NEB INHALATION SCH (23:07)
[2020-03-27] MEDS: guaiFENesin 600 MG TABLET.ER PO SCH (23:20)
[2020-03-27] MEDS: methylPREDNISolone SOD SUCCI 40 MG/ML 1 ML VIAL IV SCH (23:55)
[2020-03-28] MEDS ORDERED: methylPREDNISolone SOD SUCCI 125 MG/2 ML VIAL IV SCH
[2020-03-28] MEDS: IPRATROPIUM-ALBUTEROL 3 ML NEB INHALATION SCH ×7 (03:09→23:45)
[2020-03-28] MEDS: guaiFENesin 600 MG TABLET.ER PO SCH ×2 (07:52→21:08)
[2020-03-28] MEDS: methylPREDNISolone SOD SUCCI 40 MG/ML 1 ML VIAL IV SCH ×2 (07:52→16:51)
[2020-03-28] MEDS: SERTRALINE 25 MG TAB PO SCH (07:52)
[2020-03-28] MEDS ORDERED: IPRATROPIUM-ALBUTEROL 3 ML NEB INHALATION SCH (08:00)
[2020-03-28 11:56] LABS: Glucose,Whole Blood 183 mg/dL (75-99)
[2020-03-28 12:26] VITALS: BMI 24.2
--- NOTE | 2020-03-28 14:54 | P.PN ---
Progress Note - Text Progress Note Date: 03/28/20 Chief Complaint: Short of breath History of presenting complaint: This is a very pleasant 84-year-old patient of Dr. Jansen.-circuit board drafter Dr. Machado. Patient has long-standing history of COPD. Had been on oxygen. Chronic stable medical conditions include hypertension, some cognitive impairment, GERD, BPH, osteoarthritis. Was admitted in August of this year with pneumonia. 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 Patient apparently did get some radiation treatment by Dr. Anthony Roldan. Patient subsequently did not every 2 follow-up with oncology. Had a couple more admissions with pneumonia. Worsening malignancy. He decided not to proceed with any further treatment. He was recently in the hospital here from March 12 through March 17. Again admitted with pneumonia. He was discharged to [facility] with [facility]. I had advised him to get a DURABLE POWER OF HEAVY RAIL TRAIN OPERATOR. It was his wishes not to get a court-appointed guardian hence locally Mr. Anthony Bucio did come and see the patient in the hospital and given papers to proceed with estate planning and DURABLE POWER OF HEAVY RAIL TRAIN OPERATOR. Patient today presented to the ER feeling more short of breath cough could not breathe. He told the ER physician he wanted treatment. I called [facility] nursing staff development coordinator Magy at [phone]. Informed her to see if patient will qualify for [facility]. Patient's appetite is gone down. Shortness of breath. Congested chest Patient able carry out today conversation. I was informed that [facility] is also proceeded with Alex Smalls and in the process of getting guardianship. Today-propped up in bed. Congested chest. Feels a bit better. Did eat some breakfast. Tired. Review of systems: Was done for constitutional, cardiovascular, GI, pulmonary. relevant finding as above Active Medications Albuterol/Ipratropium (Ipratropium-Albuterol 3 Ml Neb) 3 ml INHALATION RT-Q4H [facility] Last Admin: 03/28/20 13:12 Dose: 3 ml Documented by: Guaifenesin (Guaifenesin 600 Mg Tablet.Er) 1,200 mg PO Q12HR [facility] Last Admin: 03/28/20 07:52 Dose: 1,200 mg Documented by: Lorazepam (Lorazepam 2 Mg/Ml Inj) 2 mg IV Q4HR PRN PRN Reason: Anxiety Methylprednisolone Sodium Succinate (Methylprednisolone Sod Succi 40 Mg/Ml 1 Ml Vial) 40 mg IV Q8HR [facility] Last Admin: 03/28/20 07:52 Dose: 40 mg Documented by: Morphine Sulfate (Morphine Sulfate 2 Mg/Ml Syringe) 2 mg IVP Q2H PRN PRN Reason: Mild Discomfort Sertraline HCl (Sertraline 25 Mg Tab) 25 mg PO DAILY [facility] Last Admin: 03/28/20 07:52 Dose: 25 mg Documented by: Physical examination: VITAL SIGNS: 98, 81, 20, 124/61, 93% on 5 L GENERAL: Propped up in bed, tired, short of breath, less congested EYES: Pupils equal. Conjunctiva pale. HEENT: External appearance of nose and ears normal, oral cavity grossly normal. NECK: JVD not raised; masses not palpable. HEART: First and second heart sounds are normal; no edema. LUNGS: Respiratory rate increased, decreased breath sounds prolonged expiration some expiratory crackles, not able to speak in full sentences ABDOMEN: Soft, nontender, liver spleen not palpable, no masses palpable. PSYCH: Alert and oriented x3; mood and affect anxious. MUSCULAR skeletal: Evidence of OA INVESTIGATIONS, reviewed in the clinical context: White count 8 hemoglobin 12.5 platelets 370 potassium 5.6 creatinine 0.55 Chest x-ray film personally reviewed by me-increasing obesity on the right site infiltrates, possible mass l Assessment: -Acute hypoxic respiratory failure secondary to progression of lung cancer, possible pneumonia, POA - pneumonia suspected gram-negative organism. 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 Patient has received radiation treatment. Is not followed up for some time. -Hyperkalemia -SIADH -Essential hypertension -Mild cognitive impairment -GERD -BPH -Primary osteoarthritis -Acute COPD exacerbation in an ex-smoker -DO NOT RESUSCITATE-hospice Plan: Continue current medication treatment plan. Cutback Solu-Medrol. Continue bronchodilators. Pending repeat potassium. Patient will be established with Alex vinson as legal guardian/court-appointed
[2020-03-28 15:54] LABS: African American GFR (CKD) >90 (>60 ml/min/1.73 sqM); Anion Gap 4 mmol/L; Blood Urea Nitrogen 19 mg/dL (9-20); Calcium 8.6 mg/dL (8.4-10.2); Carbon Dioxide 32 mmol/L (22-30); Chloride 89 mmol/L (98-107); Glucose 216 mg/dL (74-99); Non-African American GFR(CKD) 88 (>60 ml/min/1.73 sqM); Potassium 4.1 mmol/L (3.5-5.1); Sodium 125 mmol/L (137-145)
[2020-03-29] MEDS: methylPREDNISolone SOD SUCCI 40 MG/ML 1 ML VIAL IV SCH ×4 (00:49→23:59)
[2020-03-29] MEDS: IPRATROPIUM-ALBUTEROL 3 ML NEB INHALATION SCH ×6 (04:42→23:57)
[2020-03-29] MEDS: SERTRALINE 25 MG TAB PO SCH (08:56)
[2020-03-29] MEDS: guaiFENesin 600 MG TABLET.ER PO SCH ×2 (08:56→20:20)
--- NOTE | 2020-03-29 17:08 | P.PN ---
Progress Note - Text Progress Note Date: 03/29/20 Chief Complaint: Short of breath History of presenting complaint: This is a very pleasant 84-year-old patient of Dr. Jansen.-tire groover Dr. Machado. Patient has long-standing history of COPD. Had been on oxygen. Chronic stable medical conditions include hypertension, some cognitive impairment, GERD, BPH, osteoarthritis. Was admitted in August of this year with pneumonia. 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 Patient apparently did get some radiation treatment by Dr. Anthony Roldan. Patient subsequently did not every 2 follow-up with oncology. Had a couple more admissions with pneumonia. Worsening malignancy. He decided not to proceed with any further treatment. He was recently in the hospital here from March 12 through March 17. Again admitted with pneumonia. He was discharged to [facility] with [facility]. I had advised him to get a DURABLE POWER OF TIE TAPE MACHINE OPERATOR. It was his wishes not to get a court-appointed guardian hence locally Iva Anthony Bucio did come and see the patient in the hospital and given papers to proceed with estate planning and DURABLE POWER OF TIE TAPE MACHINE OPERATOR. Patient today presented to the ER feeling more short of breath cough could not breathe. He told the ER physician he wanted treatment. I called [facility] hospice massage therapist Magy at [phone]. Informed her to see if patient will qualify for [facility]. Patient's appetite is gone down. Shortness of breath. Congested chest Patient able carry out today conversation. I was informed that [facility] is also proceeded with Alex Smalls and in the process of getting guardianship. Today-propped up in bed. Some congestion. Eating reasonably well. Review of systems: Was done for constitutional, cardiovascular, GI, pulmonary. relevant finding as above Active Medications Albuterol/Ipratropium (Ipratropium-Albuterol 3 Ml Neb) 3 ml INHALATION RT-Q4H [facility] Last Admin: 03/29/20 16:41 Dose: 3 ml Documented by: Guaifenesin (Guaifenesin 600 Mg Tablet.Er) 1,200 mg PO Q12HR [facility] Last Admin: 03/29/20 08:56 Dose: 1,200 mg Documented by: Lorazepam (Lorazepam 2 Mg/Ml Inj) 2 mg IV Q4HR PRN PRN Reason: Anxiety Methylprednisolone Sodium Succinate (Methylprednisolone Sod Succi 40 Mg/Ml 1 Ml Vial) 40 mg IV Q8HR [facility] Last Admin: 03/29/20 16:11 Dose: 40 mg Documented by: Morphine Sulfate (Morphine Sulfate 2 Mg/Ml Syringe) 2 mg IVP Q2H PRN PRN Reason: Mild Discomfort Sertraline HCl (Sertraline 25 Mg Tab) 25 mg PO DAILY [facility] Last Admin: 03/29/20 08:56 Dose: 25 mg Documented by: Physical examination: VITAL SIGNS: 97.4, 84, 18, 145/79, 96% on 5 L GENERAL: Propped up in bed, tired, short of breath, congested EYES: Pupils equal. Conjunctiva pale. HEENT: External appearance of nose and ears normal, oral cavity grossly normal. NECK: JVD not raised; masses not palpable. HEART: First and second heart sounds are normal; no edema. LUNGS: Respiratory rate increased, decreased breath sounds prolonged expiration some expiratory crackles, not able to speak in full sentences ABDOMEN: Soft, nontender, liver spleen not palpable, no masses palpable. PSYCH: Alert and oriented x3; mood and affect anxious. MUSCULAR skeletal: Evidence of OA INVESTIGATIONS, reviewed in the clinical context: Potassium 4.1 sodium 125 Admission testing White count 8 hemoglobin 12.5 platelets 370 potassium 5.6 creatinine 0.55 Chest x-ray film personally reviewed by me-increasing obesity on the right site infiltrates, possible mass l Assessment: -Acute hypoxic respiratory failure secondary to progression of lung cancer, possible pneumonia, POA - pneumonia suspected gram-negative organism. 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 Patient has received radiation treatment. Is not followed up for some time. -Hyperkalemia -SIADH -Essential hypertension -Mild cognitive impairment -GERD -BPH -Primary osteoarthritis -Acute COPD exacerbation in an ex-smoker -DO NOT RESUSCITATE-hospice Plan: Continue current medication treatment plan. Changed to oral steroids. Continue bronchodilators. Appointment for court-appointed legal guardian April 02
[2020-03-30] MEDS: IPRATROPIUM-ALBUTEROL 3 ML NEB INHALATION SCH ×6 (04:38→23:41)
[2020-03-30] MEDS: guaiFENesin 600 MG TABLET.ER PO SCH ×2 (08:08→20:40)
[2020-03-30] MEDS: SERTRALINE 25 MG TAB PO SCH (08:08)
[2020-03-30] MEDS: methylPREDNISolone SOD SUCCI 40 MG/ML 1 ML VIAL IV SCH ×2 (08:08→16:18)
--- NOTE | 2020-03-30 17:12 | P.PN ---
Progress Note - Text Progress Note Date: 03/30/20 Chief Complaint: Short of breath History of presenting complaint: This is a very pleasant 84-year-old patient of Dr. Jansen.-sales expert home theater Dr. Machado. Patient has long-standing history of COPD. Had been on oxygen. Chronic stable medical conditions include hypertension, some cognitive impairment, GERD, BPH, osteoarthritis. Was admitted in August of this year with pneumonia. 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 Patient apparently did get some radiation treatment by Dr. Anthony Roldan. Patient subsequently did not every 2 follow-up with oncology. Had a couple more admissions with pneumonia. Worsening malignancy. He decided not to proceed with any further treatment. He was recently in the hospital here from March 12 through March 17. Again admitted with pneumonia. He was discharged to [facility] with [facility]. I had advised him to get a DURABLE POWER OF RECHECKER. It was his wishes not to get a court-appointed guardian hence locally Mr. Anthony Bucio did come and see the patient in the hospital and given papers to proceed with estate planning and DURABLE POWER OF RECHECKER. Patient today presented to the ER feeling more short of breath cough could not breathe. He told the ER physician he wanted treatment. I called [facility] digital account coordinator Magy at [phone]. Informed her to see if patient will qualify for [facility]. Patient's appetite is gone down. Shortness of breath. Congested chest Patient able carry out today conversation. I was informed that [facility] is also proceeded with Alex Smalls and in the process of getting guardianship. Today-sitting up in bed, tired, eating intermittently. Cough present. Less congestion. Review of systems: Was done for constitutional, cardiovascular, GI, pulmonary. relevant finding as above Physical examination: VITAL SIGNS: 98.6-86, 18, 1 36 x 64, 95% on 5 L GENERAL: Propped up in bed, tired, less congested EYES: Pupils equal. Conjunctiva pale. HEENT: External appearance of nose and ears normal, oral cavity grossly normal. NECK: JVD not raised; masses not palpable. HEART: First and second heart sounds are normal; no edema. LUNGS: Respiratory rate increased, decreased breath sounds prolonged expiration some expiratory crackles, ABDOMEN: Soft, nontender, liver spleen not palpable, no masses palpable. PSYCH: Alert and oriented x3; mood and affect anxious. MUSCULAR skeletal: Evidence of OA INVESTIGATIONS, reviewed in the clinical context: Potassium 4.1 sodium 125 Admission testing White count 8 hemoglobin 12.5 platelets 370 potassium 5.6 creatinine 0.55 Chest x-ray film personally reviewed by me-increasing obesity on the right site infiltrates, possible mass l Assessment: -Acute hypoxic respiratory failure secondary to progression of lung cancer, possible pneumonia, POA - pneumonia suspected gram-negative organism. 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 Patient has received radiation treatment. Is not followed up for some time. -Hyperkalemia -SIADH -Essential hypertension -Mild cognitive impairment -GERD -BPH -Primary osteoarthritis -Acute COPD exacerbation in an ex-smoker -DO NOT RESUSCITATE-hospice Plan: Continue current medication treatment plan. Continue bronchodilators. Appointment for court-appointed legal guardian April 02
[2020-03-30] MEDS ORDERED: SERTRALINE 25 MG TAB PO SCH (17:15)
[2020-03-30] MEDS: AMOXIC-POT CLAV 875-125MG 1 EACH TAB PO SCH (20:39)
[2020-03-30] MEDS: SODIUM CHLORIDE TAB 1 GM TAB PO SCH (20:40)
[2020-03-31] MEDS: IPRATROPIUM-ALBUTEROL 3 ML NEB INHALATION SCH ×5 (04:18→19:09)
[2020-03-31] MEDS: guaiFENesin 600 MG TABLET.ER PO SCH ×2 (08:30→20:47)
[2020-03-31] MEDS: predniSONE 20 MG TAB PO SCH (08:30)
[2020-03-31] MEDS: SODIUM CHLORIDE TAB 1 GM TAB PO SCH ×2 (08:30→20:48)
[2020-03-31] MEDS: SERTRALINE 25 MG TAB PO SCH (08:31)
[2020-03-31] MEDS: AMOXIC-POT CLAV 875-125MG 1 EACH TAB PO SCH ×2 (08:34→20:47)
--- NOTE | 2020-03-31 18:11 | P.PN ---
Progress Note - Text Progress Note Date: 03/31/20 Chief Complaint: Short of breath History of presenting complaint: This is a very pleasant 84-year-old patient of Dr. Jansen.-geology scientist Dr. Machado. Patient has long-standing history of COPD. Had been on oxygen. Chronic stable medical conditions include hypertension, some cognitive impairment, GERD, BPH, osteoarthritis. Was admitted in August of this year with pneumonia. 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 Patient apparently did get some radiation treatment by Dr. Anthony Roldan. Patient subsequently did not every 2 follow-up with oncology. Had a couple more admissions with pneumonia. Worsening malignancy. He decided not to proceed with any further treatment. He was recently in the hospital here from March 12 through March 17. Again admitted with pneumonia. He was discharged to [facility] with [facility]. I had advised him to get a DURABLE POWER OF INTERVENTIONAL PHYSICIAN. It was his wishes not to get a court-appointed guardian hence locally Mr. Anthony Bucio did come and see the patient in the hospital and given papers to proceed with estate planning and DURABLE POWER OF INTERVENTIONAL PHYSICIAN. Patient today presented to the ER feeling more short of breath cough could not breathe. He told the ER physician he wanted treatment. I called [facility] hospice volunteer Magy at [phone]. Informed her to see if patient will qualify for [facility]. Patient's appetite is gone down. Shortness of breath. Congested chest Patient able carry out today conversation. I was informed that [facility] is also proceeded with Alex Smalls and in the process of getting guardianship. Today-sitting up in bed, some cough and sputum production. picky about his food. Requesting to go to the room and be in the hallway on a wheelchair. Review of systems: Was done for constitutional, cardiovascular, GI, pulmonary. r elevant finding as above Physical examination: VITAL SIGNS: Afebrile, 90, 14, 1623 W. 79, 93% on Nasal cannula GENERAL: Propped up in bed, tired, EYES: Pupils equal. Conjunctiva pale. HEENT: External appearance of nose and ears normal, oral cavity grossly normal. NECK: JVD not raised; masses not palpable. HEART: First and second heart sounds are normal; no edema. LUNGS: Respiratory rate increased, decreased breath sounds prolonged expiration some expiratory crackles, ABDOMEN: Soft, nontender, liver spleen not palpable, no masses palpable. PSYCH: Able to answer questions. MUSCULAR skeletal: Evidence of OA INVESTIGATIONS, reviewed in the clinical context: Potassium 4.1 sodium 125 Admission testing White count 8 hemoglobin 12.5 platelets 370 potassium 5.6 creatinine 0.55 Chest x-ray film personally reviewed by me-increasing obesity on the right site infiltrates, possible mass l Assessment: -Acute hypoxic respiratory failure secondary to progression of lung cancer, possible pneumonia, POA - pneumonia suspected gram-negative organism. 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 Patient has received radiation treatment. Is not followed up for some time. -Hyperkalemia -SIADH -Essential hypertension -Mild cognitive impairment -GERD -BPH -Primary osteoarthritis -Acute COPD exacerbation in an ex-smoker -DO NOT RESUSCITATE-hospice Plan: Continue current medication treatment plan. Spoke to the licensed clinical social worker liaison from hospice team. Help patient with deciding and giving him the options about discharge places. Spoke to [facility] home health care case manager.
[2020-04-01] MEDS: IPRATROPIUM-ALBUTEROL 3 ML NEB INHALATION SCH ×6 (00:21→20:45)
[2020-04-01] MEDS: SERTRALINE 25 MG TAB PO SCH (08:03)
[2020-04-01] MEDS: predniSONE 20 MG TAB PO SCH (08:03)
[2020-04-01] MEDS: AMOXIC-POT CLAV 875-125MG 1 EACH TAB PO SCH ×2 (08:03→20:48)
[2020-04-01] MEDS: guaiFENesin 600 MG TABLET.ER PO SCH ×2 (08:03→20:43)
[2020-04-01] MEDS: SODIUM CHLORIDE TAB 1 GM TAB PO SCH ×2 (08:04→20:43)
--- NOTE | 2020-04-01 17:51 | P.PN ---
Progress Note - Text Progress Note Date: 04/01/20 Chief Complaint: Short of breath History of presenting complaint: This is a very pleasant 84-year-old patient of Dr. Jansen.-esthetician/skin therapist Dr. Machado. Patient has long-standing history of COPD. Had been on oxygen. Chronic stable medical conditions include hypertension, some cognitive impairment, GERD, BPH, osteoarthritis. Was admitted in August of this year with pneumonia. 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 Patient apparently did get some radiation treatment by Dr. Anthony Roldan. Patient subsequently did not every 2 follow-up with oncology. Had a couple more admissions with pneumonia. Worsening malignancy. He decided not to proceed with any further treatment. He was recently in the hospital here from March 12 through March 17. Again admitted with pneumonia. He was discharged to [facility] with [facility]. I had advised him to get a DURABLE POWER OF LASER BEAM CUTTER. It was his wishes not to get a court-appointed guardian hence locally Mr. Anthony Bucio did come and see the patient in the hospital and given papers to proceed with estate planning and DURABLE POWER OF LASER BEAM CUTTER. Patient today presented to the ER feeling more short of breath cough could not breathe. He told the ER physician he wanted treatment. I called [facility] hospice clinical supervisor Magy at [phone]. Informed her to see if patient will qualify for [facility]. Patient's appetite is gone down. Shortness of breath. Congested chest Patient able carry out today conversation. I was informed that [facility] is also proceeded with Alex Smalls and in the process of getting guardianship. Today-patient went about the hallway yesterday and a wheelchair. Resting in bed. Slight cough. ate 100% of his breakfast and 50% of his lunch.. Review of systems: Was done for constitutional, cardiovascular, GI, pulmonary. relevant finding as above Physical examination: VITAL SIGNS: 98, 99, 18, 123/75, 99% on 3 L GENERAL: Laying in bed, comfortable, not in distress EYES: Pupils equal. Conjunctiva pale. HEENT: External appearance of nose and ears normal, oral cavity grossly normal. NECK: JVD not raised; masses not palpable. HEART: First and second heart sounds are normal; no edema. LUNGS: Respiratory rate increased, decreased breath sounds prolonged expiration some expiratory crackles, ABDOMEN: Soft, nontender, liver spleen not palpable, no masses palpable. PSYCH: Able to carry on a conversation. He knows that he is at [facility].The year, and the months. MUSCULAR skeletal: Evidence of OA INVESTIGATIONS, reviewed in the clinical context: Potassium 4.1 sodium 125 Admission testing White count 8 hemoglobin 12.5 platelets 370 potassium 5.6 creatinine 0.55 Chest x-ray film personally reviewed by me-increasing obesity on the right site infiltrates, mass l Assessment: -Acute hypoxic respiratory failure secondary to progression of lung cancer, possible pneumonia, POA - pneumonia suspected gram-negative organism. 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 Patient has received radiation treatment.-Not for further treatment -Hyperkalemia-corrected -SIADH -Essential hypertension -Mild cognitive impairment -GERD -BPH -Primary osteoarthritis -Acute COPD exacerbation in an ex-smoker -DO NOT RESUSCITATE-hospice Plan: Continue current medication treatment plan. Patient is able to carry out simple conversations. Able to take simple decisions for himself.. Awaiting court- appointed guardian-primary to help him with his accounts. At some point down the road patient will need more help. Spoke to Manolo the case assistant. I was informed that patient can go back to [facility] and that he needs to pay a bit extra extra help can be needed because he uses the call light too much. Spoke to bookkeepers supervisor Alex Lehman to coordinate care and expedite discharge planning. I did inform him that patient's GIP status to be reevaluated closely. Also princess the automation and controls manager is being informed.-To coordinate care.
[2020-04-02] MEDS: IPRATROPIUM-ALBUTEROL 3 ML NEB INHALATION SCH ×5 (02:01→21:02)
[2020-04-02] MEDS: LORazepam 2 MG/ML INJ IV PRN ×2 (06:05→23:24)
[2020-04-02] MEDS: MORPHINE SULFATE 2 MG/ML SYRINGE IVP PRN ×4 (06:17→23:16)
[2020-04-02] MEDS: predniSONE 20 MG TAB PO SCH (07:49)
[2020-04-02] MEDS: guaiFENesin 600 MG TABLET.ER PO SCH ×2 (07:49→20:41)
[2020-04-02] MEDS: SERTRALINE 25 MG TAB PO SCH (07:49)
[2020-04-02] MEDS: AMOXIC-POT CLAV 875-125MG 1 EACH TAB PO SCH ×2 (07:49→20:41)
[2020-04-02] MEDS: SODIUM CHLORIDE TAB 1 GM TAB PO SCH ×2 (07:49→20:41)
[2020-04-02] MEDS: ATROPINE OPHTH SOLN 1% 5ML BTL SUBLINGUAL PRN (09:07)
--- NOTE | 2020-04-02 22:46 | P.PN ---
Progress Note - Text Progress Note Date: 04/02/20 Chief Complaint: Short of breath History of presenting complaint: This is a very pleasant 84-year-old patient of Dr. Jansen.-histologic technician Dr. Machado. Patient has long-standing history of COPD. Had been on oxygen. Chronic stable medical conditions include hypertension, some cognitive impairment, GERD, BPH, osteoarthritis. Was admitted in August of this year with pneumonia. 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 Patient apparently did get some radiation treatment by Dr. Anthony Roldan. Patient subsequently did not every 2 follow-up with oncology. Had a couple more admissions with pneumonia. Worsening malignancy. He decided not to proceed with any further treatment. He was recently in the hospital here from March 12 through March 17. Again admitted with pneumonia. He was discharged to [facility] with [facility]. I had advised him to get a DURABLE POWER OF WATER SUPERINTENDENT. It was his wishes not to get a court-appointed guardian hence locally Mr. Anthony Bucio did come and see the patient in the hospital and given papers to proceed with estate planning and DURABLE POWER OF WATER SUPERINTENDENT. Patient today presented to the ER feeling more short of breath cough could not breathe. He told the ER physician he wanted treatment. I called [facility] hospice nurse Magy at [phone]. Informed her to see if patient will qualify for [facility]. Patient's appetite is gone down. Shortness of breath. Congested chest Patient able carry out today conversation. I was informed that [facility] is also proceeded with Alex Smalls and in the process of getting guardianship. Today-put the nurse around 5:30 this morning patient said he took a turn for the worse.. Became lethargic difficulty labored breathing. Decreased responsive. Not able to communicate... Review of systems: Unable to be done Physical examination: VITAL SIGNS: On nasal cannula 5 L GENERAL: Laying in bed, increased rate of breathing EYES: Pupils equal. Conjunctiva pale. NECK: JVD not raised; masses not palpable. HEART: First and second heart sounds are normal; no edema. LUNGS: Respiratory rate increased, decreased breath sounds ABDOMEN: Soft, nontender, liver spleen not palpable, no masses palpable. PSYCH: Barely arousable. INVESTIGATIONS, reviewed in the clinical context: Potassium 4.1 sodium 125 Admission testing White count 8 hemoglobin 12.5 platelets 370 potassium 5.6 creatinine 0.55 Chest x-ray film personally reviewed by me-increasing obesity on the right site infiltrates, mass l Assessment: -Acute hypoxic respiratory failure secondary to progression of lung cancer, possible pneumonia, POA-worsening today - pneumonia suspected gram-negative organism. 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 Patient has received radiation treatment.-Not for further treatment -Hyperkalemia-corrected -SIADH -Essential hypertension -Mild cognitive impairment -GERD -BPH -Primary osteoarthritis -Acute COPD exacerbation in an ex-smoker -DO NOT RESUSCITATE-hospice Plan: Respiratory status is worsening this morning. Continue supportive care. Keep the patient comfortable. Discussed with patient's nurse and the bottle caser Manolo..
[2020-04-03] MEDS: IPRATROPIUM-ALBUTEROL 3 ML NEB INHALATION SCH ×7 (00:21→23:36)
[2020-04-03] MEDS: guaiFENesin 600 MG TABLET.ER PO SCH ×2 (07:29→19:21)
[2020-04-03] MEDS: predniSONE 20 MG TAB PO SCH (07:29)
[2020-04-03] MEDS: AMOXIC-POT CLAV 875-125MG 1 EACH TAB PO SCH ×2 (07:29→19:20)
[2020-04-03] MEDS: SODIUM CHLORIDE TAB 1 GM TAB PO SCH ×2 (07:29→19:21)
[2020-04-03] MEDS: SERTRALINE 25 MG TAB PO SCH (07:29)
--- NOTE | 2020-04-03 17:11 | P.PN ---
Subjective on-call hospitalist covering Dr. Sosa starting 04/03 From the note of Dr. shannon History of presenting complaint: This is a very pleasant 84-year-old patient of Dr. Jansen.-precision layout worker Dr. Machado. Patient has long-standing history of COPD. Had been on oxygen. Chronic stable medical conditions include hypertension, some cognitive impa irment, GERD, BPH, osteoarthritis. Was admitted in August of this year with pneumonia. 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 Patient apparently did get some radiation treatment by Dr. Anthony Roldan. Patient subsequently did not every 2 follow-up with oncology. Had a couple more admissions with pneumonia. Worsening malignancy. He decided not to proceed with any further treatment. He was recently in the hospital here from March 12 through March 17. Again admitted with pneumonia. He was discharged to [facility] with [facility] hospice. I had advised him to get a DURABLE POWER OF SUPERVISOR FRAME ASSEMBLY. It was his wishes not to get a court-appointed guar herminio hence locally Anthony Bucio did come and see the patient in the hospital and given papers to proceed with estate planning and DURABLE POWER OF SUPERVISOR FRAME ASSEMBLY. Patient today presented to the ER feeling more short of breath cough could not breathe. He told the ER physician he wanted treatment. I called [facility] pharmacy intake coordinator Magy at [phone]. Informed her to see if patient will qualify for [facility]. Patient's appetite is gone down. Shortness of breath. Congested chest Patient able carry out today conversation. I was informed that [facility] hospice is also proceeded with Alex Smalls and in the process of getting guardianship. Today-put the nurse around 5:30 this morning patient said he took a turn for the worse.. Became lethargic difficulty labored breathing. Decreased responsive. Not able to communicate... Subjective 04/03/20 Patient today is obtunded, he is unresponsive, information was taken from medical records and the staff,patient is originally under hospice care , however he was educated and the plan was obtaining public guardian as he has no family as per staff,so he can be moved to another facility because he was agitated and hospice home could not take care of him. However as today he became unresponsive and obtunded. patient with CTA of the lung, on admission showingextensive consolidation of the right lung with progression of the tumor.he needed oxygen because of his hypoxic respiratory failure unfortunatelyPrognosis is extremely poor and I don't think patient will tolerate any chemo or radio therapy given his condition and he is eligible for hospice, end of life care. As patient is expected to soon within days. Objective - Vital Signs Vital signs: Vital Signs Temp 97.5 F L 04/02/20 04:35 Pulse 135 H 04/02/20 06:11 Resp 20 04/03/20 05:37 BP 190/111 04/02/20 06:11 Pulse Ox 88 L 04/02/20 06:11 Intake & Output 04/02/20 04/03/20 04/03/20 18:59 06:59 18:59 Intake Total 0 Balance 0 Weight 72.3 kg Intake: Oral 0 Other: Voiding Method Diaper Diaper # Voids 1 0 # Bowel Movements 1 - Exam Gen: 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 CTA showing extensive consolidation secondary to progression of his tumor. Patient is not eligible for any therapy -Acute hypoxic respiratory failure secondary to above -Severe hyponatremia, possibly secondary to his lung tumor and is JOSHUA age - pneumonia suspected gram-negative organism. POA -Hyperkalemia-corrected -Essential hypertension -Mild cognitive impairment -GERD -BPH -Primary osteoarthritis -Acute COPD exacerbation in an ex-smoker -DO NOT RESUSCITATE-hospice Plan: this is an 84 years old male who presents with end-stage lung cancer with progressive and extensive consolidation of the right lung secondary to his lung tumor with acute hypoxic respiratory failure and hyponatremia and possible pneumonia,patient is already on hospice, continue with the care
[2020-04-03] MEDS: MORPHINE SULFATE 2 MG/ML SYRINGE IVP PRN ×2 (18:13→20:32)
[2020-04-03] MEDS: ATROPINE OPHTH SOLN 1% 5ML BTL SUBLINGUAL PRN (20:36)
[2020-04-03] MEDS: LORazepam 2 MG/ML INJ IV PRN (20:41)
[2020-04-04] MEDS: IPRATROPIUM-ALBUTEROL 3 ML NEB INHALATION SCH ×4 (03:03→15:48)
[2020-04-04] MEDS: predniSONE 20 MG TAB PO SCH (08:07)
[2020-04-04] MEDS: guaiFENesin 600 MG TABLET.ER PO SCH ×2 (08:07→20:01)
[2020-04-04] MEDS: AMOXIC-POT CLAV 875-125MG 1 EACH TAB PO SCH ×2 (08:07→20:01)
[2020-04-04] MEDS: SODIUM CHLORIDE TAB 1 GM TAB PO SCH ×2 (08:08→20:01)
[2020-04-04] MEDS: SERTRALINE 25 MG TAB PO SCH (08:08)
--- NOTE | 2020-04-04 09:34 | P.PN ---
Subjective on-call hospitalist covering Dr. Sosa starting 04/03 From the note of Dr. shannon History of presenting complaint: This is a very pleasant 84-year-old patient of Dr. Jansen.-game preserve manager Dr. Machado. Patient has long-standing history of COPD. Had been on oxygen. Chronic stable medical conditions include hypertension, some cognitive impa irment, GERD, BPH, osteoarthritis. Was admitted in August of this year with pneumonia. 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 Patient apparently did get some radiation treatment by Dr. Anthony Roldan. Patient subsequently did not every 2 follow-up with oncology. Had a couple more admissions with pneumonia. Worsening malignancy. He decided not to proceed with any further treatment. He was recently in the hospital here from March 12 through March 17. Again admitted with pneumonia. He was discharged to [facility] with [facility] hospice. I had advised him to get a DURABLE POWER OF PEDIATRIC PHYSICAL THERAPY ASSISTANT. It was his wishes not to get a court-appointed guar herminio hence locally Anthony Bucio did come and see the patient in the hospital and given papers to proceed with estate planning and DURABLE POWER OF PEDIATRIC PHYSICAL THERAPY ASSISTANT. Patient today presented to the ER feeling more short of breath cough could not breathe. He told the ER physician he wanted treatment. I called [facility] hospice entrance attendant Magy at [phone]. Informed her to see if patient will qualify for [facility]. Patient's appetite is gone down. Shortness of breath. Congested chest Patient able carry out today conversation. I was informed that [facility] hospice is also proceeded with Alex Smalls and in the process of getting guardianship. Today-put the nurse around 5:30 this morning patient said he took a turn for the worse.. Became lethargic difficulty labored breathing. Decreased responsive. Not able to communicate... Subjective 04/03/20 Patient today is obtunded, he is unresponsive, information was taken from medical records and the staff,patient is originally under hospice care , however he was educated and the plan was obtaining public guardian as he has no family as per staff,so he can be moved to another facility because he was agitated and hospice home could not take care of him. However as today he became unresponsive and obtunded. patient with CTA of the lung, on admission showingextensive consolidation of the right lung with progression of the tumor.he needed oxygen because of his hypoxic respiratory failure unfortunatelyPrognosis is extremely poor and I don't think patient will tolerate any chemo or radio therapy given his condition and he is eligible for hospice, end of life care. As patient is expected to soon within days. 04/04/2020 Patient is a still obtunded Continue with hospice care Objective - Vital Signs Vital signs: Vital Signs Temp 97.5 F L 04/02/20 04:35 Pulse 135 H 04/02/20 06:11 Resp 20 04/03/20 05:37 BP 190/111 04/02/20 06:11 Pulse Ox 88 L 04/02/20 06:11 Intake & Output 04/03/20 04/04/20 04/04/20 18:59 06:59 18:59 Intake Total 0 Output Total 0 200 Balance 0 -200 Intake: Oral 0 Output: Urine 0 200 Other: Voiding Method Indwelling Catheter Indwelling Catheter - Exam Gen: 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 CTA showing extensive consolidation secondary to progression of his tumor. Patient is not eligible for any therapy -Acute hypoxic respiratory failure secondary to above -Severe hyponatremia, possibly secondary to his lung tumor and is JOSHUA age - pneumonia suspected gram-negative organism. POA -Hyperkalemia-corrected -Essential hypertension -Mild cognitive impairment -GERD -BPH -Primary osteoarthritis -Acute COPD exacerbation in an ex-smoker -DO NOT RESUSCITATE-hospice Plan: this is an 84 years old male who presents with end-stage lung cancer with progressive and extensive consolidation of the right lung secondary to his lung tumor with acute hypoxic respiratory failure and hyponatremia and possible pneumonia,patient is already on hospice, continue with the care
[2020-04-04] MEDS: ATROPINE OPHTH SOLN 1% 5ML BTL SUBLINGUAL PRN ×2 (10:47→20:03)
[2020-04-04] MEDS: MORPHINE SULFATE 2 MG/ML SYRINGE IVP PRN (10:49)
[2020-04-04] MEDS ORDERED: IPRATROPIUM-ALBUTEROL 3 ML NEB INHALATION PRN (19:34)
[2020-04-05] MEDS: LORazepam 2 MG/ML INJ IV PRN (00:29)
[2020-04-05] MEDS: guaiFENesin 600 MG TABLET.ER PO SCH ×2 (08:26→19:52)
[2020-04-05] MEDS: predniSONE 20 MG TAB PO SCH (08:26)
[2020-04-05] MEDS: SERTRALINE 25 MG TAB PO SCH (08:26)
[2020-04-05] MEDS: AMOXIC-POT CLAV 875-125MG 1 EACH TAB PO SCH ×2 (08:26→19:52)
[2020-04-05] MEDS: SODIUM CHLORIDE TAB 1 GM TAB PO SCH ×2 (08:27→19:52)
[2020-04-05] MEDS: SCOPOLAMINE 1.5MG/72HR PATCH TRANSDERM SCH (09:11)
--- NOTE | 2020-04-05 14:00 | P.PN ---
Subjective on-call hospitalist covering Dr. Sosa starting 04/03 From the note of Dr. shannon History of presenting complaint: This is a very pleasant 84-year-old patient of Dr. Jansen.-certified physician's assistant Dr. Machado. Patient has long-standing history of COPD. Had been on oxygen. Chronic stable medical conditions include hypertension, some cognitive impa irment, GERD, BPH, osteoarthritis. Was admitted in August of this year with pneumonia. 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 Patient apparently did get some radiation treatment by Dr. Anthony Roldan. Patient subsequently did not every 2 follow-up with oncology. Had a couple more admissions with pneumonia. Worsening malignancy. He decided not to proceed with any further treatment. He was recently in the hospital here from March 12 through March 17. Again admitted with pneumonia. He was discharged to [facility] with [facility] hospice. I had advised him to get a DURABLE POWER OF BIOINFORMATICS ASSOCIATE. It was his wishes not to get a court-appointed guar herminio hence locally Anthony Bucio did come and see the patient in the hospital and given papers to proceed with estate planning and DURABLE POWER OF BIOINFORMATICS ASSOCIATE. Patient today presented to the ER feeling more short of breath cough could not breathe. He told the ER physician he wanted treatment. I called [facility] patient case coordinator Magy at [phone]. Informed her to see if patient will qualify for [facility]. Patient's appetite is gone down. Shortness of breath. Congested chest Patient able carry out today conversation. I was informed that [facility] hospice is also proceeded with Alex Smalls and in the process of getting guardianship. Today-put the nurse around 5:30 this morning patient said he took a turn for the worse.. Became lethargic difficulty labored breathing. Decreased responsive. Not able to communicate... Subjective 04/03/20 Patient today is obtunded, he is unresponsive, information was taken from medical records and the staff,patient is originally under hospice care , however he was educated and the plan was obtaining public guardian as he has no family as per staff,so he can be moved to another facility because he was agitated and hospice home could not take care of him. However as today he became unresponsive and obtunded. patient with CTA of the lung, on admission showingextensive consolidation of the right lung with progression of the tumor.he needed oxygen because of his hypoxic respiratory failure unfortunatelyPrognosis is extremely poor and I don't think patient will tolerate any chemo or radio therapy given his condition and he is eligible for hospice, end of life care. As patient is expected to soon within days. 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 CTA showing extensive consolidation secondary to progression of his tumor. Patient is not eligible for any therapy -Acute hypoxic respiratory failure secondary to above -Severe hyponatremia, possibly secondary to his lung tumor and is JOSHUA age - pneumonia suspected gram-negative organism. POA -Hyperkalemia-corrected -Essential hypertension -Mild cognitive impairment -GERD -BPH -Primary osteoarthritis -Acute COPD exacerbation in an ex-smoker -DO NOT RESUSCITATE-hospice Plan: this is an 84 years old male who presents with end-stage lung cancer with progressive and extensive consolidation of the right lung secondary to his lung tumor with acute hypoxic respiratory failure and hyponatremia and possible pneumonia,patient is already on hospice, continue with the care
[2020-04-06] MEDS: guaiFENesin 600 MG TABLET.ER PO SCH ×3 (08:16→21:52)
[2020-04-06] MEDS: predniSONE 20 MG TAB PO SCH ×2 (08:16→09:36)
[2020-04-06] MEDS: SERTRALINE 25 MG TAB PO SCH ×2 (08:16→09:37)
[2020-04-06] MEDS: SODIUM CHLORIDE TAB 1 GM TAB PO SCH ×3 (08:17→21:52)
--- NOTE | 2020-04-06 12:56 | P.PN ---
Subjective on-call hospitalist covering Dr. Sosa starting 04/03 From the note of Dr. shannon History of presenting complaint: This is a very pleasant 84-year-old patient of Dr. Jansen.-hooker machine tender Dr. Machado. Patient has long-standing history of COPD. Had been on oxygen. Chronic stable medical conditions include hypertension, some cognitive impa irment, GERD, BPH, osteoarthritis. Was admitted in August of this year with pneumonia. 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 Patient apparently did get some radiation treatment by Dr. Anthony Roldan. Patient subsequently did not every 2 follow-up with oncology. Had a couple more admissions with pneumonia. Worsening malignancy. He decided not to proceed with any further treatment. He was recently in the hospital here from March 12 through March 17. Again admitted with pneumonia. He was discharged to [facility] with [facility] hospice. I had advised him to get a DURABLE POWER OF CLOTH BURLER. It was his wishes not to get a court-appointed guar herminio hence locally Anthony Bucio did come and see the patient in the hospital and given papers to proceed with estate planning and DURABLE POWER OF CLOTH BURLER. Patient today presented to the ER feeling more short of breath cough could not breathe. He told the ER physician he wanted treatment. I called [facility] summer school coordinator Magy at [phone]. Informed her to see if patient will qualify for [facility]. Patient's appetite is gone down. Shortness of breath. Congested chest Patient able carry out today conversation. I was informed that [facility] hospice is also proceeded with Alex Smalls and in the process of getting guardianship. Today-put the nurse around 5:30 this morning patient said he took a turn for the worse.. Became lethargic difficulty labored breathing. Decreased responsive. Not able to communicate... Subjective 04/03/20 Patient today is obtunded, he is unresponsive, information was taken from medical records and the staff,patient is originally under hospice care , however he was educated and the plan was obtaining public guardian as he has no family as per staff,so he can be moved to another facility because he was agitated and hospice home could not take care of him. However as today he became unresponsive and obtunded. patient with CTA of the lung, on admission showingextensive consolidation of the right lung with progression of the tumor.he needed oxygen because of his hypoxic respiratory failure unfortunatelyPrognosis is extremely poor and I don't think patient will tolerate any chemo or radio therapy given his condition and he is eligible for hospice, end of life care. As patient is expected to soon within days. 04/04/2020 Patient is a still obtunded Continue with hospice care 04/05/2020 Clinically the same, looks comfortable Continue with hospice care 04/06/2020 Clinically the same, looks comfortable Continue with hospice care discussed with field nurse case manager/social service manager Objective - Vital Signs Vital signs: Vital Signs Temp 97.5 F L 04/02/20 04:35 Pulse 135 H 04/02/20 06:11 Resp 20 04/05/20 23:28 BP 190/111 04/02/20 06:11 Pulse Ox 88 L 04/02/20 06:11 Intake & Output 04/05/20 04/06/20 04/06/20 18:59 06:59 18:59 Intake Total 0 0 Output Total 315 Balance 0 -315 Intake: Oral 0 0 Output: Urine 315 Uretheral (Moe) 315 Other: Voiding Method Indwelling Catheter Indwelling Catheter - Exam Gen: 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 CTA showing extensive consolidation secondary to progression of his tumor. Patient is not eligible for any therapy -Acute hypoxic respiratory failure secondary to above -Severe hyponatremia, possibly secondary to his lung tumor and is JOSHUA age - pneumonia suspected gram-negative organism. POA -Hyperkalemia-corrected -Essential hypertension -Mild cognitive impairment -GERD -BPH -Primary osteoarthritis -Acute COPD exacerbation in an ex-smoker -DO NOT RESUSCITATE-hospice Plan: this is an 84 years old male who presents with end-stage lung cancer with progressive and extensive consolidation of the right lung secondary to his lung tumor with acute hypoxic respiratory failure and hyponatremia and possible pneumonia,patient is already on hospice, continue with the care
[2020-04-07] MEDS: SODIUM CHLORIDE TAB 1 GM TAB PO SCH ×2 (11:29→21:52)
[2020-04-07] MEDS: guaiFENesin 600 MG TABLET.ER PO SCH ×2 (11:29→21:52)
--- NOTE | 2020-04-07 13:32 | P.PN ---
Subjective on-call hospitalist covering Dr. Sosa starting 04/03 From the note of Dr. shannon History of presenting complaint: This is a very pleasant 84-year-old patient of Dr. Jansen.-shingle trimmer Dr. Machado. Patient has long-standing history of COPD. Had been on oxygen. Chronic stable medical conditions include hypertension, some cognitive impa irment, GERD, BPH, osteoarthritis. Was admitted in August of this year with pneumonia. 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 Patient apparently did get some radiation treatment by Dr. Anthony Roldan. Patient subsequently did not every 2 follow-up with oncology. Had a couple more admissions with pneumonia. Worsening malignancy. He decided not to proceed with any further treatment. He was recently in the hospital here from March 12 through March 17. Again admitted with pneumonia. He was discharged to [facility] with [facility] hospice. I had advised him to get a DURABLE POWER OF PLATE STRAIGHTENER. It was his wishes not to get a court-appointed guar herminio hence locally Anthony Bucio did come and see the patient in the hospital and given papers to proceed with estate planning and DURABLE POWER OF PLATE STRAIGHTENER. Patient today presented to the ER feeling more short of breath cough could not breathe. He told the ER physician he wanted treatment. I called [facility] rn hospice Magy at [phone]. Informed her to see if patient will qualify for [facility]. Patient's appetite is gone down. Shortness of breath. Congested chest Patient able carry out today conversation. I was informed that [facility] hospice is also proceeded with Alex Smalls and in the process of getting guardianship. Today-put the nurse around 5:30 this morning patient said he took a turn for the worse.. Became lethargic difficulty labored breathing. Decreased responsive. Not able to communicate... Subjective 04/03/20 Patient today is obtunded, he is unresponsive, information was taken from medical records and the staff,patient is originally under hospice care , however he was educated and the plan was obtaining public guardian as he has no family as per staff,so he can be moved to another facility because he was agitated and hospice home could not take care of him. However as today he became unresponsive and obtunded. patient with CTA of the lung, on admission showingextensive consolidation of the right lung with progression of the tumor.he needed oxygen because of his hypoxic respiratory failure unfortunatelyPrognosis is extremely poor and I don't think patient will tolerate any chemo or radio therapy given his condition and he is eligible for hospice, end of life care. As patient is expected to soon within days. 04/04/2020 Patient is a still obtunded Continue with hospice care 04/05/2020 Clinically the same, looks comfortable Continue with hospice care 04/06/2020 Clinically the same, looks comfortable Continue with hospice care discussed with transplant case manager/social insurance analyst 04/07/2020 Clinically the same, looks comfortable Continue with hospice care discussed with staff Objective - Vital Signs Vital signs: Vital Signs Temp 97.5 F L 04/02/20 04:35 Pulse 135 H 04/02/20 06:11 Resp 20 04/06/20 16:00 BP 190/111 04/02/20 06:11 Pulse Ox 88 L 04/02/20 06:11 Intake & Output 04/06/20 04/07/20 04/07/20 18:59 06:59 18:59 Intake Total 480 0 Output Total 2900 600 Balance -2420 -600 Intake: Oral 480 0 Output: Urine 1100 600 Uretheral (Moe) 700 200 Stool 1800 Other: Voiding Method Indwelling Catheter Indwelling Catheter # Voids 0 - Exam Gen: 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 CTA showing extensive consolidation secondary to progression of his tumor. Patient is not eligible for any therapy -Acute hypoxic respiratory failure secondary to above -Severe hyponatremia, possibly secondary to his lung tumor and is JOSHUA age - pneumonia suspected gram-negative organism. POA -Hyperkalemia-corrected -Essential hypertension -Mild cognitive impairment -GERD -BPH -Primary osteoarthritis -Acute COPD exacerbation in an ex-smoker -DO NOT RESUSCITATE-hospice Plan: this is an 84 years old male who presents with end-stage lung cancer with progressive and extensive consolidation of the right lung secondary to his lung tumor with acute hypoxic respiratory failure and hyponatremia and possible pneu monia,patient is already on hospice, continue with the care
[2020-04-07 20:55] VITALS: BP 112/73; PULSE 63; RESP 12; TEMP 97.8
[2020-04-07] MEDS: ATROPINE OPHTH SOLN 1% 5ML BTL SUBLINGUAL PRN (21:52)
[2020-04-08] MEDS: guaiFENesin 600 MG TABLET.ER PO SCH ×3 (08:25→20:55)
[2020-04-08] MEDS: SODIUM CHLORIDE TAB 1 GM TAB PO SCH ×3 (08:25→20:56)
[2020-04-08] MEDS: SCOPOLAMINE 1.5MG/72HR PATCH TRANSDERM SCH (08:25)
[2020-04-08] MEDS: ATROPINE OPHTH SOLN 1% 5ML BTL SUBLINGUAL PRN ×2 (08:27→20:55)
--- NOTE | 2020-04-08 20:54 | P.PN ---
Progress Note - Text Progress Note Date: 04/08/20 Chief Complaint: Short of breath History of presenting complaint: This is a very pleasant 84-year-old patient of Dr. Jansen.-book binder Dr. Machado. Patient has long-standing history of COPD. Had been on oxygen. Chronic stable medical conditions include hypertension, some cognitive impairment, GERD, BPH, osteoarthritis. Was admitted in August of this year with pneumonia. 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 Patient apparently did get some radiation treatment by Dr. Anthony Roldan. Patient subsequently did not every 2 follow-up with oncology. Had a couple more admissions with pneumonia. Worsening malignancy. He decided not to proceed with any further treatment. He was recently in the hospital here from March 12 through March 17. Again admitted with pneumonia. He was discharged to [facility] with [facility]. I had advised him to get a DURABLE POWER OF HR INTERNSHIP. It was his wishes not to get a court-appointed guardian hence locally Mr. Anthony Bucio did come and see the patient in the hospital and given papers to proceed with estate planning and DURABLE POWER OF HR INTERNSHIP. Patient today presented to the ER feeling more short of breath cough could not breathe. He told the ER physician he wanted treatment. I called [facility] retail event coordinator Magy at [phone]. Informed her to see if patient will qualify for [facility]. Patient's appetite is gone down. Shortness of breath. Congested chest Patient able carry out today conversation. I was informed that [facility] is also proceeded with Alex Smalls and in the process of getting guardianship.because patient took a turn for the worst, guardianship hearing was canceled Today-laying in bed. Tired. Lethargic. Gurgling the chest. Barely opens eyes.. Review of systems: Unable to be done Physical examination: VITAL SIGNS: 97.8, 63, 12, 112/73, 90% on 2 L GENERAL: Laying in bed, increased rate of breathing, lethargic EYES: Pupils equal. Conjunctiva pale. NECK: JVD not raised; masses not palpable. HEART: First and second heart sounds are normal; no edema. LUNGS: Respiratory rate increased, decreased breath sounds , audible congestion ABDOMEN: Soft, nontender, liver spleen not palpable, no masses palpable. PSYCH: about arousable INVESTIGATIONS, reviewed in the clinical context: Admission testing White count 8 hemoglobin 12.5 platelets 370 potassium 5.6 creatinine 0.55Potassium 4.1 sodium 125 Chest x-ray film personally reviewed by me-increasing obesity on the right site infiltrates, mass l Assessment: -Acute hypoxic respiratory failure secondary to progression of lung cancer, possible pneumonia, POA-worsening today - pneumonia suspected gram-negative organism. 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 Patient has received radiation treatment.-Not for further treatment -Hyperkalemia-corrected -SIADH -Essential hypertension -Mild cognitive impairment -GERD -BPH -Primary osteoarthritis -Acute COPD exacerbation in an ex-smoker -DO NOT RESUSCITATE-hospice Plan: continue comfort measures as per the hospice. Speak to Manolo the hospital social worker- [facility] to call me to help the patient's wishes. Patient is still going to require guardianto manage his estate.. also spoke to Shahrzad from care management team.
[2020-04-09] MEDS: ATROPINE OPHTH SOLN 1% 5ML BTL SUBLINGUAL PRN (07:42)
[2020-04-09] MEDS: guaiFENesin 600 MG TABLET.ER PO SCH ×2 (07:42→19:50)
[2020-04-09] MEDS: SODIUM CHLORIDE TAB 1 GM TAB PO SCH ×2 (07:43→19:50)
[2020-04-09] MEDS: MORPHINE SULFATE 2 MG/ML SYRINGE IVP PRN (07:46)
--- NOTE | 2020-04-09 23:21 | P.PN ---
Progress Note - Text Progress Note Date: 04/09/20 Chief Complaint: Short of breath History of presenting complaint: This is a very pleasant 84-year-old patient of Dr. Jansen.-atomizer assembler Dr. Machado. Patient has long-standing history of COPD. Had been on oxygen. Chronic stable medical conditions include hypertension, some cognitive impairment, GERD, BPH, osteoarthritis. Was admitted in August of this year with pneumonia. 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 Patient apparently did get some radiation treatment by Dr. Anthony Roldan. Patient subsequently did not every 2 follow-up with oncology. Had a couple more admissions with pneumonia. Worsening malignancy. He decided not to proceed with any further treatment. He was recently in the hospital here from March 12 through March 17. Again admitted with pneumonia. He was discharged to [facility] with [facility]. I had advised him to get a DURABLE POWER OF ROOF MECHANIC. It was his wishes not to get a court-appointed guardian hence locally Mr. Anthony Bucio did come and see the patient in the hospital and given papers to proceed with estate planning and DURABLE POWER OF ROOF MECHANIC. Patient today presented to the ER feeling more short of breath cough could not breathe. He told the ER physician he wanted treatment. I called [facility] promotions coordinator Magy at [phone]. Informed her to see if patient will qualify for [facility]. Patient's appetite is gone down. Shortness of breath. Congested chest Patient able carry out today conversation. I was informed that [facility] hospice is also proceeded with Alex Smalls and in the process of getting guardianship.because patient took a turn for the worst, guardianship hearing was canceled Today-laying in bed. Tired. Lethargic. Gurgling the chest. Less responsive Review of systems: Unable to be done Physical examination: VITAL SIGNS: Respiration 12 GENERAL: Laying in bed, increased rate of breathing, lethargic HEART: First and second heart sounds are normal; no edema. LUNGS: Respiratory rate increased, decreased breath sounds , INVESTIGATIONS, reviewed in the clinical context: Admission testing White count 8 hemoglobin 12.5 platelets 370 potassium 5.6 creatinine 0.55Potassium 4.1 sodium 125 Chest x-ray film personally reviewed by me-increasing obesity on the right site infiltrates, mass l Assessment: -Acute hypoxic respiratory failure secondary to progression of lung cancer, possible pneumonia, POA-worsening today - pneumonia suspected gram-negative organism. 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 Patient has received radiation treatment.-Not for further treatment -Hyperkalemia-corrected -SIADH -Essential hypertension -Mild cognitive impairment -GERD -BPH -Primary osteoarthritis -Acute COPD exacerbation in an ex-smoker -DO NOT RESUSCITATE-hospice Plan: continue comfort measures . legal billing coordinator for the hospital Rosie Noe is not available until next for 5 days.- Haven't heard anything different from the care management and Alex Lehman regarding patient's legal guardianship.
[2020-04-10] MEDS: guaiFENesin 600 MG TABLET.ER PO SCH (08:28)
[2020-04-10] MEDS: SODIUM CHLORIDE TAB 1 GM TAB PO SCH (08:28)
--- NOTE | 2020-04-10 23:15 | P.DS ---
Providers Date of admission: 03/27/20 21:04 Expected date of discharge: 04/10/20 Attending physician: Dez Sosa Primary care physician: Jose Guadalupe Jansen [facility] Course: Chief Complaint: Short of breath History of presenting complaint: This is a very pleasant 84-year-old patient of Dr. Jansen.-siphoner Dr. Machado. Patient has long-standing history of COPD. Had been on oxygen. Chronic stable medical conditions include hypertension, some cognitive impairment, GERD, BPH, osteoarthritis. Was admitted in August of this year with pneumonia. 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 Patient apparently did get some radiation treatment by Dr. Anthony Roldan. Patient subsequently did not every 2 follow-up with oncology. Had a couple more admissions with pneumonia. Worsening malignancy. He decided not to proceed with any further treatment. He was recently in the hospital here from March 12 through March 17. Again admitted with pneumonia. He was disch arged to [facility] with [facility]. I had advised him to get a DURABLE POWER OF SWING GRINDER. It was his wishes not to get a court-appointed guardian hence locally Mr. Anthony Bucio did come and see the patient in the hospital and given papers to proceed with estate planning and DURABLE POWER OF SWING GRINDER. Patient today presented to the ER feeling more short of breath cough could not breathe. He told the ER physician he wanted treatment. I called [facility] hospice clinical marketer Magy at [phone]. Informed her to see if patient will qualify for [facility]. Patient's appetite is gone down. Shortness of breath. Congested chest Patient able carry out today conversation. I was informed that [facility] hospice for guardianship had proceeded with Alex Smalls and in the process of getting guardianship.because patient took a turn for the worst, guardianship hearing was canceled Patient today INVESTIGATIONS, reviewed in the clinical context: Admission testing White count 8 hemoglobin 12.5 platelets 370 potassium 5.6 creatinine 0.55Potassium 4.1 sodium 125 Chest x-ray film personally reviewed by me-increasing obesity on the right site infiltrates, mass Cause of : Adenocarcinoma lung Assessment: -Acute hypoxic respiratory failure secondary to progression of lung cancer, possible pneumonia, POA-worsening today - pneumonia suspected gram-negative organism. 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 Patient has received radiation treatment.-Not for further treatment -Hyperkalemia-corrected -SIADH -Essential hypertension -Mild cognitive impairment -GERD -BPH -Primary osteoarthritis -Acute COPD exacerbation in an ex-smoker -DO NOT RESUSCITATE-hospice Disposition: Patient . Plan - Discharge Summary Discharge Rx Participant: No New Discharge Prescriptions: Discontinued Ipratropium/Albuterol Sulfate [Duoneb 0.5 mg-3 mg/3 ml Soln] 3 ml INHALATION RT-QID PRN PRN Reason: Shortness Of Breath Fluticasone Propion/Salmeterol [Wixela 250-50 Inhub] 1 puff INHALATION RT-BID Multivitamins, Thera [Multivitamin (formulary)] 1 tab PO DAILY Magnesium Gluconate [Magonate] 500 mg PO DAILY Sertraline [Zoloft] 25 mg PO DAILY #30 tab Sodium Chloride Tab 1 gm PO BID #30 tab guaiFENesin [Mucinex] 1,200 mg PO Q12HR #60 tablet.er Discharge Disposition: - Preliminary Cause of Preliminary Cause of : Adenocarcinoma of the lung
== END 2020-04-10 12:31 | disposition expired | DRG 951 ==
LOC: EC 17:42 → 3SCARD 21:04 → 6NMEDSUR 03-28 15:25
PROVIDERS: ADMIT Hospitalist; ATTEND Hospitalist
DX: Z51.5 Encounter for palliative care (principal); J15.6 Pneumonia due to other Gram-negative bacteria; J96.01 Acute respiratory failure with hypoxia; C34.90 Malignant neoplasm of unspecified part of unspecified bronchus or lung; E22.2 Syndrome of inappropriate secretion of antidiuretic hormone; J44.0 Chronic obstructive pulmonary disease with (acute) lower respiratory infection; J44.1 Chronic obstructive pulmonary disease with (acute) exacerbation; E87.5 Hyperkalemia; F41.9 Anxiety disorder, unspecified; Z66 Do not resuscitate; G31.84 Mild cognitive impairment of uncertain or unknown etiology; I10 Essential (primary) hypertension; K21.9 Gastro-esophageal reflux disease without esophagitis; M19.91 Primary osteoarthritis, unspecified site; N40.0 Benign prostatic hyperplasia without lower urinary tract symptoms; Z79.899 Other long term (current) drug therapy; Z81.1 Family history of alcohol abuse and dependence; Z87.01 Personal history of pneumonia (recurrent); Z87.891 Personal history of nicotine dependence; Z92.3 Personal history of irradiation; Z99.81 Dependence on supplemental oxygen; Z88.8 Allergy status to other drugs, medicaments and biological substances; Z88.1 Allergy status to other antibiotic agents
CPT/HCPCS: 36415; 71046; 71275; 80048; 80053; 83605; 83880; 84484; 85025; 85610; 85730; 93005; 94640; 94760; 96374; 99285